=== PATIENT | female | born 1940 | race Caucasian/White ===

== ENCOUNTER → 2019-10-21 12:49 | Outpatient (CLI) | payer MEDICARE, SELFPAY ==
[2019-10-21 13:17] LABS: RBC Urine None Seen (0-5/HPF); WBC Urine None Seen (0-5/HPF)
[2019-10-21 13:42] LABS: Add Manual Diff / Slide Review NO; Basophils Absolute Auto 100 /uL (0-100); Basophils Percent Auto 1.3 % (0-2); Eosinophils Absolute Auto 200 /uL (0-450); Eosinophils Percent Auto 4.8 % (2-4); Hematocrit 42.7 % (36-46); Hemoglobin 14.6 g/dL (12.0-16.0); Lymphocytes Absolute Auto 900 /uL (1100-4500); Lymphocytes Percent Auto 19.2 % (25-40); Mean Corpuscular HGB Conc 34.1 % (30-36); Mean Corpuscular Volume 93.7 fL (80-100); Monocytes Absolute Auto 400 /uL (0-900); Monocytes Percent Auto 8.8 % (3-14); Neutrophils Absolute Auto 3200 /uL (1500-7000); Neutrophils Percent Auto 65.9 % (50-75); Platelet Count 321 X10^3/uL (150-400); Red Blood Cell Count 4.56 X10^6/uL (4.0-5.2); White Blood Cell Count 4.8 X10^3/uL (4.5-11.0)
[2019-10-21 14:03] LABS: Hemoglobin A1C% w Est Avg Glu 5.4 % (4.0-6.0)
[2019-10-21 14:04] LABS: BUN Creatinine Ratio 20.6 (6-22); Blood Urea Nitrogen 22 mg/dL (7-17); Calcium 9.5 mg/dL (8.4-10.2); Carbon Dioxide 29 mmol/L (22-32); Chloride 104 mmol/L (98-107); Estimated Glomerular Filt Rate 49.5 mL/min (>60); Glucose 93 mg/dL (80-110); HEMOLYSIS < 15 (0-50); Sodium 140 mmol/L (137-145)
[2019-10-21 15:20] LABS: Appearance Urine UA CLEAR; Bilirubin Urine UA NEGATIVE (NEGATIVE); Color Urine UA YELLOW; Glucose Urine UA NEGATIVE (Negative); Ketones Urine UA NEGATIVE (NEGATIVE); Leukocyte Esterase Urine UA NEGATIVE (NEGATIVE); Nitrite Urine UA NEGATIVE (Negative); Occult Blood Urine UA NEGATIVE (Negative); Protein Urine UA NEGATIVE (Negative); Specific Gravity Urine UA <=1.005 (1.000-1.035); Urobilinogen Urine UA 0.2 E.U./dL (0.2)
[2019-10-21 15:45] LABS: Bacteria Urine Occasional (0-1); Culture Indicated Urine Cult Not Indicated; Squamous Epithelial Cell Urine 1-5 /HPF (0-5/HPF)
== END ==
PROVIDERS: Family Provider Internal Medicine; PCP Internal Medicine; Referring Provider Orthopaedic Surgery; Visit Provider Orthopaedic Surgery
DX: Z01.818 Encounter for other preprocedural examination (principal); Z01.812 Encounter for preprocedural laboratory examination; R73.9 Hyperglycemia, unspecified; N39.0 Urinary tract infection, site not specified
CPT/HCPCS: 36415; 80048; 81001; 83036; 85025; 93005

== ENCOUNTER → 2019-11-10 13:03 | Outpatient (CLI) | payer MEDICARE, SELFPAY ==
[2019-11-11 06:39] LABS: COVID19 Sendout Not Detected (Not Detect)
== END ==
PROVIDERS: Family Provider Internal Medicine; PCP Internal Medicine; Visit Provider Physician Assistant
DX: Z01.812 Encounter for preprocedural laboratory examination (principal)
CPT/HCPCS: 87635

== ENCOUNTER 2019-11-14 10:01 | Observation (INO) | payer MEDICARE, SELFPAY ==
[2019-11-06 13:53] VITALS: BMI 36.2
[2019-11-13] VITALS (17 sets, daily range): BP systolic 116–157; BP diastolic 55–80; PULSE 80–96; RESP 11–22; TEMP 35.6–36.4; O2SAT 90–97; BMI 36.5
[2019-11-13] MEDS: CELECOXIB 200 MG CAPSULE PO (07:01)
[2019-11-13] MEDS: ACETAMINOPHEN 325 MG TABLET 975 MG PO (07:01)
[2019-11-13] MEDS: PREGABALIN 75 MG CAPSULE PO (07:02)
[2019-11-13] MEDS: VANCOMYCIN 1,000 MG/200 ML PIGGYBACK 200 MG IV (07:02)
[2019-11-13] MEDS: LACTATED RINGERS 1,000 ML 42 ML IV ×2 (07:27→08:59)
[2019-11-13] MEDS: CEFAZOLIN 2 GM/100 ML FROZ.PIGGY IV ×3 (07:40→23:52)
--- NOTE | 2019-11-13 07:42 | P.OP_ITS ---
Operative Date/Time/Diagnoses Date of procedure: 11/13/19 Time of procedure: 07:59 Pre-op diagnosis: left knee OA Post-op diagnosis: same Procedure & Clinicians Procedure: Left total knee arthroplasty Same procedure as scheduled: Yes Indications: The patient has had progressively worsening left knee pain with radiographic changes consistent with arthritis. Non-operative management has failed and the patient has requested total knee replacement. The risks, benefits and alternatives to surgery were discussed with the patient prior to proceeding. Risks discussed included, but were not limited to, failure to relieve pain, stiffness, infection, nerve damage, deep venous thrombosis, pulmonary embolism, stroke, coma, heart attack, permanent paralysis and , as well as the potential need for eventual revision of the prosthetic. Surgeon: Camila Trujillo Software Applications Designer: Rhonda Delgado Anesthesia Type: General and Spinal Operative Notes Findings: Severe left knee osteoarthritis, good stability Closure Type: primary Prosthetic devices, grafts, tissues, transplants, or devices: Trujillo [employer] Nephew Journey BCS 2 size 5 femur, size 3 tibia, +10 poly 35 x 7.5 mm patella Estimated Blood Loss (mL): 250 Blood products transfused: none Tourniquet time (min): 99 Procedure in detail: The patient was seen in the pre-operative area, where the patient identified the left knee as the operative site and this was marked with my initials. The patient received pre-operative antibiotics, and was taken to the operating room and placed on the operative table in the supine position. After satisfactory anesthesia, a multimedia journalist out was performed. The left leg was encircled with a tourniquet about the proximal thigh, and the leg was prepared from the toes to the tourniquet with ChloroPrep in the usual fashion and draped through sterile drapes. The leg was elevated and exsanguinated with Eschmark bandage and the tourniquet inflated to 300 mmHg pressure. The knee was approached through an approximately 18 cm incision centered over the patella and carried into the knee through a medial parapatellar arthrotomy. A portion of the medial and lateral meniscus was resected. Soft tissue was carefully mobilized around the patella the patella was measured with a caliper. Bone was resected from the patella and the patellar height was reconstituted with up an appropriate sized patellar component. A cover was then placed on the patella. Portion of the lateral facet of the patella was resected as it was slightly thin and crumbling. A small amount of additional medial and lateral meniscus was resected. The distal femur was cut at 5?. A [+2] cut was used. It looked like an appropriate distal femoral cut and the cut was made without difficulty. An extramedullary guide was used for the tibial cut. 10 mm was resected off the least affected side.The tibia was prepared. The rotation was assessed. The patient was placed in extension residual medial and lateral meniscus as well as any residual bone was carefully resected. [No] additional tibia was resected. Hemostasis was achieved especially posteriorly. Additional local was injected into the posterior capsule. The extension gap was assessed and additional releases for gap balancing were performed as necessary. It was checked with the gap applied marine physics professor. The femoral component was trial was placed and the notch was finished. The rotation was assessed and the appropriate size femoral guide was placed on the distal femur and finishing cuts were made. There is no evidence of notching. The anterior, posterior and chamfer cuts were then made. The posterior osteophytes and soft tissues were then removed. The posterior capsule was injected with part of a mixture of 60 ml 0.25% Marcaine mixed with 20 ml Exparel for post operative pain control. The remainder of this mixture was injected into the capsule and subcutaneous tissues during cement curing. The tibial and femoral components were then placed and the knee placed through a range of motion. Range of motion was [0-130], with good stability throughout the range. The trials were then removed, and the tibia was finished. The bone was prepared with pulsatile lavage, and dried with a sponge. Cement was applied and the final prosthetics placed. Excess cement was removed during and after cement curing. A brief Betadine soak was performed. After confirming there was no extruded cement posteriorly, the final tibial insert was placed. The knee was copiously irrigated and the tourniquet deflated. Hemostasis was obtained with the Bovie. A drain was placed and brought out superolaterally. The capsule was closed with interrupted nonabsorbable suture. The subcutaneous layer was closed with barbed sutures, and the skin with a running 3-0 V-Lock suture and Surgical glue. An ana dressing was applied and the patient was taken to recovery having tolerated the procedure well. Complications: none Post-operative Condition: stable Disposition: Acute Care Plan for aftercare: The patient will be maintained on a standard total knee replacement protocol with weight bearing as tolerated. The patient will receive aspirin and sequential compression devices for DVT prophylaxis. The patient will be discharged home when safe for the home environment.
--- NOTE | 2019-11-13 07:42 | PM.PREOP ---
Pre-operative Note COVID-19 COVID-19 status: Negative Interval Note History & Physical reviewed/Exam performed by Physician: Yes Changes to H&P: No
--- NOTE | 2019-11-13 08:00 | DI.RAD.S_ITS ---
PROCEDURE: XR KNEE LT 1TO2V INDICATIONS: post op films TECHNIQUE: 2 view(s) of the knee acquired. COMPARISON: None. FINDINGS: Bones: Patient is status post knee joint arthroplasty. Hardware components are in expected positions. Visualized bony structures are intact. Soft tissues: Overlying postoperative changes are noted. IMPRESSION: Expected postoperative appearance Dictated by: Misael Steel M.D. on 11/13/2019 at 11:52 Approved by: Misael Steel M.D. on 11/13/2019 at 11:53
[2019-11-13] MEDS: TRANEXAMIC ACID 1,000 MG VIAL 1000 MG INJ ×2 (08:10→10:10)
--- NOTE | 2019-11-13 08:30 | SUR.OPER ---
Supine on padded OR bed. Pillow under head, arms secured on padded armboards <90 degree abduction. Safety belt across torso. Non-operative leg secured with tape over blanket over lower leg. Operative leg secured in DeMayo/Roc positioner. Foam padded brace at thigh of operative leg.
[2019-11-13] MEDS: BUPIVACAINE LIPOSOME 266 MG/20 ML VIAL INJ (08:36)
[2019-11-13] MEDS: BUPIVACAINE 0.25% W/ EPI 30 ML VIAL 60 ML INJ (08:36)
[2019-11-13] MEDS: LACTATED RINGERS 1,000 ML 100 ML IV ×2 (12:15→22:12)
[2019-11-13] MEDS: OXYCODONE IR 5 MG TABLET PO ×3 (14:06→22:15)
[2019-11-13] MEDS: ACETAMINOPHEN 325 MG TABLET 650 MG PO ×2 (14:06→20:35)
[2019-11-13] MEDS: IBUPROFEN 400 MG TABLET PO ×3 (14:06→20:36)
--- NOTE | 2019-11-13 14:29 | CM.IDA ---
Addendum entered by GAUTAM Franco 11/14/19 14:54: Sunday 7.3.20: PT recommending home w/ SO to assist and HH depending on progression. Will review DCP w/patient Sunday, r/o need for HH Original Note: Initial DCP Assessment Note: Patient is a 79 yo female, resident of [place]. Patient is scheduled for her left knee surgery today w/ Dr Trujillo PCP: Mel Arguello Payer: DON/CHAPIS Reviewed chart to see that patient lives w/ S.O. Ye Nunez P# [phone] and plans to return home w/his assist upon DC. Patient is off the floor today for surgery, this EDI ARCHITECT will follow closely to address any DC needs or concerns that might arise. PT pending. GAUTAM Franco
--- NOTE | 2019-11-13 14:59 | PC.NURSE ---
Patient arrived from PACu at 1230 today to room 205. VSS. Hemovac and MELVIN dressing in place to left knee, with YUNIOR wrap in place. Physical therapy attempted to see patient this afternoon, but patient declined therapy today. They will attempt again in the morning. Patient reported moderate pain this afternoon to knee, relieved by prn medications (see MAR) as documented and now sleeping comfortably in bed. Patient declined urge to void yet, continue to monitor as patient due to void post surgery. Call light with reach.
--- NOTE | 2019-11-13 15:07 | DIET.PN ---
Addendum entered by Ileana Ruvalcaba 11/14/19 11:18: Met c pt this am to discuss importance of including protein at every meal and snack for next two weeks to support healing and collaborated c pt on ideas. Encouraged pt to participate in all PT sessions and increase physical activity to manage obesity now that she has her new knee. Original Note: Dietary Progress Note Pt sleeping when interview attempted. Will plan to visit prior to d/c Sunday to educate on adequate protein for healing and initiation of regular physical activity to manage obesity once cleared by PT.
--- NOTE | 2019-11-13 16:00 | PT-IP ANOTE ---
checked on pt for PT eval but pt refused. stated that she does not want to do any PT today. informed nurse.
--- NOTE | 2019-11-13 17:38 | PC.NURSE ---
Addendum entered by Maryan Starkey R.N. 11/13/19 22:29: Inspected HV around 1700 and it was free of kinks and compressed. no output for evening shift. Original Note: pt ambulated to the BS. 2PA-fww. UOP 225.
[2019-11-13] MEDS: ASPIRIN EC 81 MG TABLET PO (20:35)
[2019-11-13] MEDS: DOCUSATE 100 MG CAPSULE PO (20:36)
--- NOTE | 2019-11-13 22:56 | PC.NURSE ---
[place] [facility] [place]/walker. drain had no output for a few hrs then had 20cc at end of shift. hv was free of kinks and compress.
[2019-11-14] MEDS: CALCIUM CARBONATE 500 MG TAB 1000 MG PO (00:02)
--- NOTE | 2019-11-14 00:21 | PC.NURSE ---
Addendum entered by Tammy Pinedo R.N. 11/14/19 04:47: Up to BSC with walker and 1 assist; did well but needed cues for proper use of walker. States pain is 5/10 so medicated with scheduled Ibuprofen; declined offer of stronger pain medication. Original Note: Patient is alert and oriented. Breath sounds CTA with RA sat of 95%. HRR. Complaining of heartburn so medicated with Tums; denies nausea. BT present but denies flatus; hx of colitis. Voided earlier and denies any dysuria, frequency or urgency. Reportedly needing 2 assist + walker to [place] [facility] [place] due to weakness in left LE. Can move foot but unable to lift left leg off bed. Chronic numbness in left foot unchanged since prior to surgery. MELVIN dressing to left knee intact with spots dark red drainage; covered with jose l wrap. Hemovac is intact and compressed. Denies pain in knee but provided ice pack for comfort. Chronic bilateral LE edema noted. Wearing bilateral calf SCD's. Fall risk score is high and bed alarm is activated.
[2019-11-14] MEDS: IBUPROFEN 400 MG TABLET PO ×6 (00:58→20:54)
[2019-11-14 04:49] VITALS: BP 160/67; PULSE 91; RESP 16; TEMP 36.1; O2SAT 94
[2019-11-14 05:39] LABS: Hematocrit 33.7 % (36-46); Hemoglobin 11.8 g/dL (12.0-16.0)
[2019-11-14] MEDS: LEVOTHYROXINE 50 MCG TABLET PO (05:42)
[2019-11-14] MEDS: PANTOPRAZOLE 20 MG TABLET PO (05:42)
[2019-11-14] MEDS: OXYCODONE IR 5 MG TABLET PO ×3 (09:33→20:57)
[2019-11-14] MEDS: ASPIRIN EC 81 MG TABLET PO ×2 (09:33→20:54)
[2019-11-14] MEDS: DOCUSATE 100 MG CAPSULE PO ×2 (09:33→20:54)
[2019-11-14] MEDS: ACETAMINOPHEN 325 MG TABLET 650 MG PO ×3 (09:33→20:54)
[2019-11-14] MEDS: estradioL 1 MG TABLET PO (09:34)
[2019-11-14] MEDS: FISH OIL 1,000 MG CAPSULE 1000 MG PO (09:34)
[2019-11-14] MEDS: TRIAMTERENE/HCTZ 37.5/25 TABLET 1 CAP PO (09:34)
[2019-11-14 09:48] VITALS: BP 158/56; PULSE 85; RESP 18; TEMP 35.9; O2SAT 96
--- NOTE | 2019-11-14 11:10 | PT.IIE ---
Current Diagnoses Unilateral primary osteoarthritis, left knee (11/13/19) Surgery Performed Operation Date: 11/13/19 07:45 Actual Procedures p Total Knee Arthroplasty(Left) - Camila Trujillo MD Surgical History (Last Updated 11/06/19 @ 14:28 by Thelma Justin RN) History of arthroplasty of both shoulders (Acute) History of arthroplasty of right knee (Acute) History of bilateral cataract extraction (Acute) History of hysterectomy (Acute) History of lumbar fusion (Acute 08/29/16) History of total left hip arthroplasty (Acute) Hx of BSO (bilateral salpingo-oophorectomy) (Acute) Hx of dilation and curettage (Acute) Hx of repair of right rotator cuff (Acute) S/P foot surgery, right (Acute) Medical History (Last Updated 11/06/19 @ 14:28 by Thelma Justin RN) Angiomyolipoma of right kidney (Acute) Chronic cough (Acute) Collagenous colitis (Acute) Cyst of left breast (Acute 2007) Cyst of left kidney (Acute) Edema (Acute) GERD (gastroesophageal reflux disease) (Acute) Hearing loss (Acute) Hepatic cyst (Acute) Hepatic hemangioma (Acute) HTN (hypertension) (Acute) Hypothyroid (Acute) Impaired fasting glucose (Acute) Pneumonia (Acute 2006) Scoliosis (Acute) Physical Therapy Inpatient Evaluation/Re-Eval M1 PT/OT-IP Prior Functional Status Start: 11/14/19 08:25 Freq: NEEDED Status: Active Protocol: Document 11/14/19 10:41 (Rec: 11/14/19 11:10 [email or web address]) Medical Review Prior Functional Status Medical History Reviewed Yes Diet/Fluid Consistency Regular Communication Pt is an effective communicator and able to make needs known Mobility and Gait Pt uses SPC to walk with her dog. She can only rick 1 to 2 blocks of walking d/t knee pain. Pt has poor balance and fell 3 times within the past 3 weeks. She stated she doesnt need SPC for home mobility but slowly. Activities of Daily Living and IADL's Independent for ADLs without AD. She is able to cook, do laundry but her S.O Peter does heavy lifting activities. Social History Household Members significant other Living Arrangements House Number of Floors (Floors) One Floor Number of Stairs To Enter/Railing? no OSKAR Home Environment High Toilet,Walk in Shower,Tub /Shower Home Equipment Front Wheel Walker,Straight Cane,Raised Toilet Seat w/ Armrests,Grab Bars In Shower Employment Status Retired Additional Social History Comment Pt lives with her Maritza Belcher in [facility] who is very independent and active and able to assist pt as needed. Pt had R TKA 5-6 years ago, back sx 3years ago and L XI. She will participate [facility] PT starting from next week. M2 PT-IP Current Condition Start: 11/14/19 08:25 Freq: NEEDED Status: Active Protocol: Document 11/14/19 10:41 HH (Rec: 11/14/19 11:10 [email or web address]) Physical Therapy Current Condition Current Condition Evaluation Date 11/14/19 Treatment Diagnosis L TKA, difficulty in walking Onset Date 11/13/19 Weight Bearing Status Weight Bearing Status Weight Bear as Tolerated M3 PT-IP Subjective Start: 11/14/19 08:25 Freq: NEEDED Status: Active Protocol: Document 11/14/19 10:41 HH (Rec: 11/14/19 11:10 [email or web address]) Subjective Physical Therapy Visit Type Type Initial Evaluation Visit Start Time 09:30 Visit Stop Time 10:10 Total Visit Minutes 40 Notes RN stated pt got up to BSC with 1PA this morning Number of LAUNDRY TUB MAKER Visits 0 Physical Therapy Visit Comments Patient Comments My pain is at 7/10 and very sore. Patient Goals To return home once her pain is controlled. Therapy Pain Assessment Pain When Pain Assessed During Mobility Pain Present Pain Present Pain Reported Location left knee Intensity 7 Scale Used Numeric (0 - 10) Description Aching Pain Behaviors Calling Out,Facial Grimacing, Guarding Pain Management Techniques Modification of Treatment,Re- positioning,Timing of Activity with Medications M4 PT-IP Mobility and Gait Start: 11/14/19 08:25 Freq: NEEDED Status: Active Protocol: Document 11/14/19 10:41 HH (Rec: 11/14/19 11:10 [email or web address]) PT-Bed Mobility Assessment Supine to Sit Supine to Sit Contact Guard Assistance, Bedrails Scooting Scooting to Edge of Bed Contact Guard Assistance PT-Transfer Assessment Sit to and From Stand Sit to and from Stand Moderate Assistance,Use of Upper Extremities Equipment Transfer Assistive Device Gait Belt,Front Wheeled Walker Orthotic/Prosthetic Devices or Brace: No Transfers Transfer Destination Bed,Chair Transfer Technique Stand Step Pivot Transfer Ability Level of Assist Moderate Assistance,Use of Upper Extremities Comments Mobility Comments Pt was in bed upon PT arrival BP at 158/56. Pain at 7/10. Pt then was given pain meds from nursing prior to mobility. She agreed to mobilize with PT . Pt initially had difficulty lifting her LLE to pivot so this PT instructed her to use gait belt to assist. She then completed supine to long sit and used gait belt to pivot her LLE to L side with CGA. She overall took 2 mins to slowly pivot and scoot towards EOB. She then practiced seated heel slide but significant pain noted. Only reach up to ~75 degrees flexion. She then completed sit to stand x assistance stabilizing her FWW and mod A and primarily pushed off through UEs and R LE. She then proceed to amb around bed foot with step to pattern and CGA and presented with significant antalgic gait. She was able to transfer to chair slowly with proper descend with B UEs on armrests but with a stagger stance. Dr. Trujillo came in for assessment after and expect pt to stay one more night. Placed pt into reclined position with leg lift and educated her to do quad sets for knee extension. Call light placed within reach . BP at 133/72 Gait Assessment Gait Gait Assistance Required: Contact Guard Assist Distance (Feet) 8 Able to Maintain Weight Bearing Status Yes During Gait Assistive Devices Assistive Device Gait Belt,Front Wheeled Walker Orthotic/Prosthetic Devices or Brace: No Gait Deviations General Gait Pattern Antalgic,Decreased Stride Length,Decreased Feet Clearance,Step-to Gait Factors Limiting Gait Function Factors Limiting Gait Function Decreased Activity Tolerance, Decreased Strength,Limited Range of Motion,Pain,Poor Balance Comments Gait Comments see mobility comments. Stair Climbing Assessment Comments Stair Climbing Comments did not assess d/t significant pain and limited mobility PT-Balance Assessment Sitting Balance and Reactions Static Sitting Balance Ability Normal Dynamic Sitting Balance Ability Normal Standing Balance and Reactions Static Standing Balance Ability Good Dynamic Standing Balance Ability Fair Device Used FWW M5 PT-IP Objective Assessments Start: 11/14/19 08:25 Freq: NEEDED Status: Active Protocol: Document 11/14/19 10:41 (Rec: 11/14/19 11:10 [email or web address]) Orientation Orientation/Cognition Level of Alertness Alert Orientation Name,Age,Birthday,Month,Date, Year,Day of Week,Place, Situation Language Function Ability No Deficits Noted Safety Awareness Understands Safety Issues Memory Description No Deficits Noted Gross Range of Motion Upper Extremity ROM Assessment Within Functional Limits Lower Extremity ROM Assessment Left Impaired Impairments 15 - 75 L knee AROM Strength Upper Extremity Strength Assessment Within Functional Limits Lower Extremity Strength Assessment Left Impaired Hip 4-/5 Knee 3/5 Ankle 4/5 Comments Strength Comments pt has poor hip flexor strength for lifting LLE in bed. Stated she has been weak since her LTHA. Coordination Assessment Gross Coordination Gross Coordination WNL Sensation Assessment Sensation Gross Sensation WNL Muscle Tone Muscle Tone WNL Yes M6 PT-IP Treatment Start: 11/14/19 08:25 Freq: NEEDED Status: Active Protocol: Document 11/14/19 10:41 (Rec: 11/14/19 11:10 [email or web address]) Physical Therapy Treatment Exercises Exercises Ankle Pumps,Gluteal Sets,Quad Sets,Heel Slides Education Education Provided Precautions,Weight Bearing Status,Post-Op Packet,Safety M7 PT-IP Assessment and Plan Start: 11/14/19 08:25 Freq: NEEDED Status: Active Protocol: Document 11/14/19 10:41 (Rec: 11/14/19 11:10 [email or web address]) PT Summary Assessment and Plan Potential Rehabilitation Potential Good Status of Condition at Evaluation Evolving Summary Impairments Pain,ROM,Strength,Balance,Bed Mobility,Transfers,Gait, Activity Tolerance Assessment Summary This is a low complexity evaluation for this 79yo female s/p POD1 LTKA. PLOF: mostly home bound and able to amb with/ without SPC. She can only rick 1-2 blocks of walking d/t significant knee pain. Has S.O. Peter to assist at home when needed. Upon assessment, pt has significant pain this morning 11/20 and AROM = 15-75 degrees. She showed limited mobility who was able to walk around her bed and primarily WB through UEs and RLE. Pt currently needs extensive assistance for mobility so home health might be an option but expect pt to progress once her pain is under controlled and be d/c home with S.O. assistance and outpatient PT. Will cont monitor her progress. Goals Bed Mobility Goal Standby Assistance,Contact Guard Assistance Transfer Goal Standby Assistance,Contact Guard Assistance,Front Wheeled Walker Gait Goal Standby Assistance,Contact Guard Assistance,Front Wheel Walker Gait Distance 30 Days to Meet Goals 3 Frequency of Treatment Frequency Of Treatment Twice a Day Treatment Plan Physical Therapy Treatment Plan Bed Mobility Training,Transfer Training,Gait Training, Therapeutic Exercise,Balance Retraining,Post Op Education, Discharge Planning,Hot or Cold Pack,Neuromuscular Re-ed Other Recommendations and Next Treatment knee ROM ex Focus Recommendations To Nursing Amount of Assist Needed 1 Person Assist Discharge Recommendations PT Discharge Recommendations Home with Assistance,Home Health,Outpatient PT Transportation Needs at Discharge Private Vehicle
[2019-11-14 11:20] VITALS: BP 147/70; PULSE 78; RESP 15; TEMP 36.6; O2SAT 94
--- NOTE | 2019-11-14 12:58 | PM.PN.1 ---
Subjective Subjective Date Patient Seen: 11/14/19 Time Patient Seen: 10:58 Interval history: She notes that she was able to get up with physical therapy but she does have significant pain into the left knee. She has no nausea and she has not had difficulty voiding. Exam Vital Signs (past 8 hours): - 11/14/19 09:48 11/14/19 11:20 Temperature 96.7 F L 97.9 F Pulse Rate 85 78 Respiratory Rate 18 15 Blood Pressure 158/56 H 147/70 H Pulse Oximetry 96 94 Oxygen Delivery Method Room Air Oxygen Flow Rate 0 Narrative Exam Narrative: She is resting comfortably in a chair is alert and oriented, HEENT is benign, calfs are soft bilaterally, dressings intact, she has moderate pain with gentle range of the motion in her knee from 0 to about 50? Objective Labs Result Diagrams: 11/14/19 05:18 Labs: Laboratory Results - last 24 hr 11/14/19 05:18 Hgb 11.8 L Hct 33.7 L Assessment & Plan Assessment & Plan narrative: Doing reasonably well after a left total knee arthroplasty. She is having some problems with pain management postoperatively. I strongly encouraged her to continue to mobilize with physical therapy to use ice and to anticipate some pain when she gets out of bed and ambulate. She can probably be discharged to home tomorrow. We will see how she does with physical therapy.
--- NOTE | 2019-11-14 13:53 | PC.NURSE ---
Day shift: Hemovac removed as ordered, tolerated well.
--- NOTE | 2019-11-14 14:59 | PT.IPTN ---
Current Diagnoses Unilateral primary osteoarthritis, left knee (11/13/19) Surgery Performed Operation Date: 11/13/19 07:45 Actual Procedures p Total Knee Arthroplasty(Left) - Camila Trujillo MD Physical Therapy Treatment Note M2 PT-IP Current Condition Start: 11/14/19 08:25 Freq: NEEDED Status: Active Protocol: Document 11/14/19 10:41 HH (Rec: 11/14/19 11:10 HH [id number]) Physical Therapy Current Condition Current Condition Evaluation Date 11/14/19 Treatment Diagnosis L TKA, difficulty in walking Onset Date 11/13/19 Weight Bearing Status Weight Bearing Status Weight Bear as Tolerated M3 PT-IP Subjective Start: 11/14/19 08:25 Freq: NEEDED Status: Active Protocol: Document 11/14/19 14:31 KS (Rec: 11/14/19 15:54 KS [id number]) Subjective Physical Therapy Visit Type Type Treatment Note Visit Start Time 14:31 Visit Stop Time 14:59 Total Visit Minutes 28 Notes Pt agreeable to work w/ therapy. Pts SO present during treatment. Number of NURSES' REGISTRY DIRECTOR Visits 1 Physical Therapy Visit Comments Patient Comments Pt reports 5/10 pn in L knee. Patient Goals To return home once her pain is controlled. Therapy Pain Assessment Pain When Pain Assessed At Rest Pain Present Pain Present Pain Reported Location left knee Intensity 5 Scale Used Numeric (0 - 10) Description Aching Pain Management Techniques Apply Cold,Re-positioning M4 PT-IP Mobility and Gait Start: 11/14/19 08:25 Freq: NEEDED Status: Active Protocol: Document 11/14/19 14:31 KS (Rec: 11/14/19 15:54 KS [id number]) PT-Bed Mobility Assessment Supine to Sit Supine to Sit Contact Guard Assistance,Head of Bed Elevated Sit to Supine Sit to Supine Minimal Assistance,1 Person Assistance Scooting Scooting to Edge of Bed Contact Guard Assistance Scooting Up and Down in Bed Standby Assistance PT-Transfer Assessment Sit to and From Stand Sit to and from Stand Minimal Assistance,1 Person Assistance,Use of Upper Extremities Equipment Transfer Assistive Device Gait Belt,Front Wheeled Walker Orthotic/Prosthetic Devices or Brace: No Transfers Transfer Destination Bed Transfer Technique pt ambulated w/ FWW. Transfer Ability Level of Assist Minimal Assistance,1 Person Assistance,Use of Upper Extremities Comments Mobility Comments Pt was in bed upon arrival from therapy. Pt performed 1x10 ankle pumps, quad sets, and glute sets. AAROM L knee. Pt then sup<>sit and scoot EOB CGA w/ use of gait belt to self assist LLE out of bed. Pt then sit<>stand Min A w/ cues for sequencing. Pt then ambulated ~35 ft w/ FWW and CGA around room. Pt demonstrated good use of FWW. Cues for quad activation and heel toe walking. Pt returned to bed and sit<>sup Min A for LE guidance. Pt able to reposition herself in bed SBA. Pt left in bed w/ all needs in reach w/ SCDs on. Initiated caregiver trg w/ pts SO. Gait Assessment Gait Gait Assistance Required: Contact Guard Assist Distance (Feet) 35 Able to Maintain Weight Bearing Status Yes During Gait Assistive Devices Assistive Device Gait Belt,Front Wheeled Walker Orthotic/Prosthetic Devices or Brace: No Gait Deviations General Gait Pattern Antalgic,Decreased Stride Length,Decreased Feet Clearance,Step-to Gait Factors Limiting Gait Function Factors Limiting Gait Function Decreased Activity Tolerance, Decreased Strength,Limited Range of Motion,Pain,Poor Balance Comments Gait Comments see mobility comments. PT-Balance Assessment Sitting Balance and Reactions Static Sitting Balance Ability Normal Dynamic Sitting Balance Ability Normal Standing Balance and Reactions Static Standing Balance Ability Good Dynamic Standing Balance Ability Fair Device Used FWW M5 PT-IP Objective Assessments Start: 11/14/19 08:25 Freq: NEEDED Status: Active Protocol: Document 11/14/19 10:41 (Rec: 11/14/19 11:10 [email or web address]) Orientation Orientation/Cognition Level of Alertness Alert Orientation Name,Age,Birthday,Month,Date, Year,Day of Week,Place, Situation Language Function Ability No Deficits Noted Safety Awareness Understands Safety Issues Memory Description No Deficits Noted Gross Range of Motion Upper Extremity ROM Assessment Within Functional Limits Lower Extremity ROM Assessment Left Impaired Impairments 15 - 75 L knee AROM Strength Upper Extremity Strength Assessment Within Functional Limits Lower Extremity Strength Assessment Left Impaired Hip 4-/5 Knee 3/5 Ankle 4/5 Comments Strength Comments pt has poor hip flexor strength for lifting LLE in bed. Stated she has been weak since her LTHA. Coordination Assessment Gross Coordination Gross Coordination WNL Sensation Assessment Sensation Gross Sensation WNL Muscle Tone Muscle Tone WNL Yes M6 PT-IP Treatment Start: 11/14/19 08:25 Freq: NEEDED Status: Active Protocol: Document 11/14/19 14:31 KS (Rec: 11/14/19 15:54 KS [id number]) Physical Therapy Treatment Exercises Exercises Ankle Pumps,Gluteal Sets,Quad Sets,Heel Slides Education Education Provided Precautions,Weight Bearing Status,Post-Op Packet,Safety M7 PT-IP Assessment and Plan Start: 11/14/19 08:25 Freq: NEEDED Status: Active Protocol: Document 11/14/19 14:31 KS (Rec: 11/14/19 15:54 KS [id number]) PT Summary Assessment and Plan Potential Rehabilitation Potential Good Status of Condition at Evaluation Evolving Summary Impairments Pain,ROM,Strength,Balance,Bed Mobility,Transfers,Gait, Activity Tolerance Progress Towards Goals Progressing Toward Goals Assessment Summary Pt showed improvements w/ bed mobility and ambulation this afternoon. CGA for sup<>sit w/ gaitbelt to assist LLE out of bed. Min A sit<>stand w/ FWW and cues for sequencing. Pt ambulated ~35ft w/ FWW and CGA , cues for heel toe walking and quad activation. Demonstrated proper gaitbelt application and guarding to pts SO. Anticipating pt to show improved progress tomorrow and return home w/ SO and do outpatient therapy, but if not HHPT. Goals Bed Mobility Goal Standby Assistance,Contact Guard Assistance Transfer Goal Standby Assistance,Contact Guard Assistance,Front Wheeled Walker Gait Goal Standby Assistance,Contact Guard Assistance,Front Wheel Walker Gait Distance 30 Days to Meet Goals 3 Frequency of Treatment Frequency Of Treatment Twice a Day Treatment Plan Physical Therapy Treatment Plan Bed Mobility Training,Transfer Training,Gait Training, Therapeutic Exercise,Balance Retraining,Post Op Education, Discharge Planning,Hot or Cold Pack,Neuromuscular Re-ed Other Recommendations and Next Treatment knee ROM ex, further Focus ambulation Recommendations To Nursing Amount of Assist Needed 1 Person Assist Discharge Recommendations PT Discharge Recommendations Home with Assistance,Home Health,Outpatient PT Transportation Needs at Discharge Private Vehicle
[2019-11-14] MEDS: polyethylene glycoL 3350 17 GM POWD.PACK PO (15:03)
[2019-11-14 16:10] VITALS: BP 139/71; PULSE 84; RESP 16; TEMP 37; O2SAT 95
[2019-11-14 19:10] VITALS: BP 129/55; PULSE 92; RESP 15; TEMP 36.4; O2SAT 93
[2019-11-14 23:15] VITALS: BP 128/68; PULSE 95; RESP 18; TEMP 36.7; O2SAT 94
[2019-11-15] MEDS: IBUPROFEN 400 MG TABLET PO ×3 (01:11→08:20)
[2019-11-15] MEDS: PANTOPRAZOLE 20 MG TABLET PO (04:56)
[2019-11-15] MEDS: LEVOTHYROXINE 50 MCG TABLET PO (04:56)
[2019-11-15 05:21] VITALS: BP 142/60; PULSE 85; RESP 18; TEMP 36.6; O2SAT 95
[2019-11-15 07:30] VITALS: BP 127/72; PULSE 87; RESP 18; TEMP 36.6; O2SAT 95
[2019-11-15 08:01] VITALS: PULSE 94; RESP 18; O2SAT 96
[2019-11-15] MEDS: DOCUSATE 100 MG CAPSULE PO (08:19)
[2019-11-15] MEDS: OXYCODONE IR 5 MG TABLET PO (08:20)
[2019-11-15] MEDS: ASPIRIN EC 81 MG TABLET PO (08:20)
[2019-11-15] MEDS: ACETAMINOPHEN 325 MG TABLET 650 MG PO (08:20)
[2019-11-15] MEDS: FISH OIL 1,000 MG CAPSULE 1000 MG PO (09:57)
[2019-11-15] MEDS: estradioL 1 MG TABLET PO (09:57)
[2019-11-15] MEDS: TRIAMTERENE/HCTZ 37.5/25 TABLET 1 CAP PO (09:58)
--- NOTE | 2019-11-15 10:00 | PM.DS.1 ---
History of Present Illness History of Present Illness Date Patient Seen: 11/15/19 Time Patient Seen: 10:00 Chief complaint: Left Total Knee Arthroplasty *OPB* Narrative: Patient admitted for elective L UKA. Discharge Providers Provider Discharge Date: 11/15/19 Primary care physician: Mel Arguello MD Consults: 11/12/19 11:55 Consult to Anesthesiology Routine Comment: Consulting Provider: Anesthesiologist Reason for consultation: Regional block for post operative pain control 11/13/19 11:50 Consult to Discharge Planning Routine Comment: Consult to Physical Therapy Evaluate & Treat Comment: Physician Instructions: postop TKA protocol Consult to Respiratory Therapy Evaluate & Treat Comment: Physician Instructions: Evaluate and treat 11/13/19 12:30 Consult to Dietitian, Adult Routine Comment: Reason For Exam: obesity, mini nutrition score protocol Discharge provider: Arun Menjivar MD Summary Hospital Course Discharge Diagnosis: s/p L UKA Hospital Course: Patient admitted for elective L UKA. PAtient is now POD #2. Doing well. Plan for DC home today. Status at Discharge Cognitive/behavioral status at discharge: oriented Functional status at discharge: uses cane/walker Overall status at discharge: patient is progressing back to baseline Time Spent with Patient Time spent: Less than 30 minutes Exam Vital Signs (past 8 hours): - 11/15/19 05:21 11/15/19 07:30 11/15/19 08:01 Temperature 97.8 F 97.9 F Pulse Rate 85 87 94 H Respiratory Rate 18 18 18 Blood Pressure 142/60 H 127/72 Pulse Oximetry 95 95 96 Oxygen Delivery Method Room Air Oxygen Flow Rate 0 Narrative Exam Narrative: Left knee dressing with minimal strike-through. Holding suction. NV intact in LLE Objective Labs Result Diagrams: 11/14/19 05:18 Discharge Plan Discharge Plan Patient Disposition: Home Discharge comment: Discharged to home when able to ambulate and safe with therapy. Discharge Med Rec/Prescriptions Prescriptions: New acetaminophen 325 mg Tablet 650 mg PO TID Qty: 60 RF: 0 polyethylene glycol 3350 17 gram Powder In Packet 17 gm PO DAILY PRN (Reason: Constipation) Qty: 30 RF: 0 aspirin 81 mg Tablet,Delayed Release (Dr/Ec) 81 mg PO BID Qty: 60 RF: 0 ibuprofen 400 mg Tablet 400 mg PO Q4HR Qty: 60 RF: 0 oxycodone 5 mg capsule 5 mg PO Q4H PRN (Reason: pain) Qty: 30 RF: 0 Continued levothyroxine 50 MCG tablet 0.05 mg PO QAM Qty: 0 RF: 0 omeprazole 20 MG capsule,delayed release(DR/EC) 20 mg PO QDAY Qty: 0 RF: 0 celecoxib [Celebrex] 200 MG capsule 200 mg PO AMCC Qty: 0 RF: 0 estradiol 1 MG tablet 1 mg PO QDAY Qty: 0 RF: 0 omega 2-ijs-jxr-fish oil [Fish Oil] 1,000 MG capsule 1,000 mg PO QDAY Qty: 0 RF: 0 triamterene-hydrochlorothiazid 75 MG/50 MG tablet 1 tab PO QDAY Qty: 0 RF: 0 naproxen 500 mg Tablet 500 mg PO BEDTIME PRN (Reason: Pain) RF: 0 Follow up/Referrals: Mel Arguello MD [Primary Care Provider] - Discharge Orders: Discharge (Order); Ordered 11/15/19 Ordered By: Arun Menjivar Provider Discharge Instructions Diet: Diet as Tolerated Activity: Walk multiple times a day at least 5. Cold/Heat Therapy: Ice knee multiple times a day. Skin/Wound/Dressing Care Report to your healthcare provider any signs of infection, such as:: chills, fever, night sweats, increased pain, unusual drainage and unusual redness Dressing: Leave dressing on. Okay to shower. Visit Report/Discharge Packet Instructions: How to Choose and Use a Walker, DI for Knee Replacement, DI for Constipation, How to Prevent Falls Discharge Data Primary Care Provider: Mel Arguello Attending Provider: Camila Trujillo
--- NOTE | 2019-11-15 11:28 | PT.IPTN ---
Current Diagnoses Unilateral primary osteoarthritis, left knee (11/13/19) Surgery Performed Operation Date: 11/13/19 07:45 Actual Procedures p Total Knee Arthroplasty(Left) - Camila Trujillo MD Physical Therapy Treatment Note M2 PT-IP Current Condition Start: 11/14/19 08:25 Freq: NEEDED Status: Active Protocol: Document 11/14/19 10:41 HH (Rec: 11/14/19 11:10 HH [id number]) Physical Therapy Current Condition Current Condition Evaluation Date 11/14/19 Treatment Diagnosis L TKA, difficulty in walking Onset Date 11/13/19 Weight Bearing Status Weight Bearing Status Weight Bear as Tolerated M3 PT-IP Subjective Start: 11/14/19 08:25 Freq: NEEDED Status: Active Protocol: Document 11/15/19 10:12 KS (Rec: 11/15/19 12:33 KS [id number]) Subjective Physical Therapy Visit Type Type Treatment Note Visit Start Time 10:12 Visit Stop Time 11:28 Total Visit Minutes 34 Notes Split treatment 10:12-10:38, 11:20-11:28 Number of MANAGER SUPPLY CHAIN Visits 2 Physical Therapy Visit Comments Patient Comments Pts present in second part of treatment for caregiver training. Patient Goals To return home once her pain is controlled. Therapy Pain Assessment Pain When Pain Assessed During Mobility Pain Present Pain Present Pain Reported Location left knee Intensity 4 Scale Used Numeric (0 - 10) Description Aching Pain Management Techniques Apply Cold,Re-positioning, Timing of Activity with Medications M4 PT-IP Mobility and Gait Start: 11/14/19 08:25 Freq: NEEDED Status: Active Protocol: Document 11/15/19 10:12 KS (Rec: 11/15/19 12:33 KS [id number]) PT-Bed Mobility Assessment Supine to Sit Supine to Sit Standby Assistance,Head of Bed Elevated Sit to Supine Sit to Supine Contact Guard Assistance Scooting Scooting to Edge of Bed Standby Assistance Scooting Up and Down in Bed Standby Assistance PT-Transfer Assessment Sit to and From Stand Sit to and from Stand Contact Guard Assistance,1 Person Assistance,Use of Upper Extremities Equipment Transfer Assistive Device Gait Belt,Front Wheeled Walker ,4 Wheeled Walker Orthotic/Prosthetic Devices or Brace: No Transfers Transfer Destination Bed Transfer Technique pt ambulated w/ FWW. Transfer Ability Level of Assist Contact Guard Assistance,1 Person Assistance,Use of Upper Extremities Comments Mobility Comments Pt in bed upon arrival from therapy. Pt sup<>sit SBA w/ HOB elevated. Pt stated at home bed inclines. Pt then scooted EOB SBA w/ use of gaitbelt to assist LLE. Pt CGA for sit<>stand w/ 4WW cues for brake application. Pt then ambulated ~70 ft w/ 4WW, but at this time is safer to use FWW. Pt returned to room to use FWW and then ambulated ~ 230 ft CGA w/ cues for quad activation and equal step length. Pt stand<>sit<>sup in bed SBA. Pts arrived to complete caregiver training . Pt sup<>sit SBA, pts demonstrated proper application of gait belt and CGA for sit<>stand and ambulation. Pt then completed 1x platform step w/ providing CGA, cues for sequencing. Pt and state they both feel safe to return home and resume OPPT. Pt left in room w/ all needs in reach. Gait Assessment Gait Gait Assistance Required: Contact Guard Assist Distance (Feet) 300 Able to Maintain Weight Bearing Status Yes During Gait Assistive Devices Assistive Device Gait Belt,Front Wheeled Walker ,4 Wheeled Walker Orthotic/Prosthetic Devices or Brace: No Gait Deviations General Gait Pattern Antalgic,Decreased Stride Length,Decreased Feet Clearance,Step-to Gait Factors Limiting Gait Function Factors Limiting Gait Function Decreased Activity Tolerance, Decreased Strength,Limited Range of Motion,Pain,Poor Balance Comments Gait Comments see mobility comments. Stair Climbing Assessment Evaluation Level of Assist On Stairs Contact Guard Assistance,1 Person Assistance Devices Stair Climbing Assistive Devices Front Wheel Walker Technique/Endurance Stair Climbing Direction Ascend and Descend Stair Climbing Technique Step to Step Number of Steps Climbed 1 Stair Climbing Set # Repetitions (reps) 1 Comments Stair Climbing Comments Pt stated no OSKAR, but one platform step to enter through garage. Pt performed 1 step w / FWW and CGA and cues for sequencing provided by . PT-Balance Assessment Sitting Balance and Reactions Static Sitting Balance Ability Normal Dynamic Sitting Balance Ability Normal Standing Balance and Reactions Static Standing Balance Ability Good Dynamic Standing Balance Ability Fair Device Used FWW M5 PT-IP Objective Assessments Start: 11/14/19 08:25 Freq: NEEDED Status: Active Protocol: Document 11/14/19 10:41 (Rec: 11/14/19 11:10 [id number]) Orientation Orientation/Cognition Level of Alertness Alert Orientation Name,Age,Birthday,Month,Date, Year,Day of Week,Place, Situation Language Function Ability No Deficits Noted Safety Awareness Understands Safety Issues Memory Description No Deficits Noted Gross Range of Motion Upper Extremity ROM Assessment Within Functional Limits Lower Extremity ROM Assessment Left Impaired Impairments 15 - 75 L knee AROM Strength Upper Extremity Strength Assessment Within Functional Limits Lower Extremity Strength Assessment Left Impaired Hip 4-/5 Knee 3/5 Ankle 4/5 Comments Strength Comments pt has poor hip flexor strength for lifting LLE in bed. Stated she has been weak since her LTHA. Coordination Assessment Gross Coordination Gross Coordination WNL Sensation Assessment Sensation Gross Sensation WNL Muscle Tone Muscle Tone WNL Yes M6 PT-IP Treatment Start: 11/14/19 08:25 Freq: NEEDED Status: Active Protocol: Document 11/15/19 10:12 KS (Rec: 11/15/19 12:33 KS [id number]) Physical Therapy Treatment Education Education Provided Precautions,Weight Bearing Status,Post-Op Packet,Safety M7 PT-IP Assessment and Plan Start: 11/14/19 08:25 Freq: NEEDED Status: Active Protocol: Document 11/15/19 10:12 KS (Rec: 11/15/19 12:33 KS [id number]) PT Summary Assessment and Plan Potential Rehabilitation Potential Good Status of Condition at Evaluation Evolving Summary Impairments Pain,ROM,Strength,Balance,Bed Mobility,Transfers,Gait, Activity Tolerance Progress Towards Goals Progressing Toward Goals Assessment Summary Pt SBA to CGA for all bed mobility, transfers, and ambulation today. Pt ambulated ~300ft (70 ft 4WW, 230 ft FWW ) CGA. Pt safer to ambulate w/ FWW at this time d/t balance deficits. Conducted caregiver training w/ pts who was able to provide safe assist w/ gait belt, transfers , ambulation, and platform step. Pt and state they feel safe to return home. Pt will benefit from OPPT to improve balance, gait, ROM, and strength. Goals Bed Mobility Goal Standby Assistance,Contact Guard Assistance Transfer Goal Standby Assistance,Contact Guard Assistance,Front Wheeled Walker Gait Goal Standby Assistance,Contact Guard Assistance,Front Wheel Walker Gait Distance 30 Days to Meet Goals 3 Frequency of Treatment Frequency Of Treatment Twice a Day Treatment Plan Physical Therapy Treatment Plan Bed Mobility Training,Transfer Training,Gait Training, Therapeutic Exercise,Balance Retraining,Post Op Education, Discharge Planning,Hot or Cold Pack,Neuromuscular Re-ed Recommendations To Nursing Amount of Assist Needed 1 Person Assist Discharge Recommendations PT Discharge Recommendations Home with Assistance,Home Health,Outpatient PT Transportation Needs at Discharge Private Vehicle
--- NOTE | 2019-11-15 12:54 | CM.DPNOTE ---
DC Note DC order in place for home and patient eager to return home. No Barriers identified to safe return home, no HH indicated at this time. Patient will f/u w/ outpt PT P: DC home w/ SO to assist, outpt PT, via private auto JW
--- NOTE | 2019-11-15 14:10 | PC.NURSE ---
Discharge: Feels ready to d/c home. Seen by PT and she has passed, daycare director instructions were given to spouse. Seen by md and received there instructions. She is taking diet w/out problems and voiding w/out diff. Po pain meds effective. Given rx. Reviewed d/c packet. Understands her total knee precautions. Pt d/c home via auto w/spouse. Voiced no concerns at time of d/c.
== END 2019-11-15 11:40 | disposition home or self-care (01) ==
LOC: OR 11-17 09:13 → AC 11-17 09:21
PROVIDERS: Admitting Provider Orthopaedic Surgery; PCP Internal Medicine; Referring Provider Internal Medicine; Visit Provider Orthopaedic Surgery
PROC: 0SRD0JZ Replacement of Left Knee Joint with Synthetic Substitute, Open Approach (ICD-10-PCS; CPT 27447; principal; 2019-11-13 07:45)
DX: M17.12 Unilateral primary osteoarthritis, left knee (principal); I10 Essential (primary) hypertension; E66.9 Obesity, unspecified; Z68.36 Body mass index [BMI] 36.0-36.9, adult
CPT/HCPCS: 27447; 36415; 73560; 85014; 85018; 97110; 97116; 97161; 97530; C1776; G0378; A9270; C9290; J0690; J1170; J2250; J2704; J3010

== ENCOUNTER → 2020-05-21 14:03 | Outpatient (CLI) | payer MEDICARE, SELFPAY ==
[2019-11-13 11:54] VITALS: BMI 36.5
--- NOTE | 2020-05-21 | DI.US.S_ITS ---
PROCEDURE: US PERIPH VENOUS LOW EXTREM LT INDICATIONS: Acute embolism and thrombosis TECHNIQUE: Real-time imaging, as well as color and pulse Doppler interrogation, were performed of the lower extremity deep veins from the inguinal ligament to the popliteal fossa. COMPARISON: None. FINDINGS: The common femoral, femoral and popliteal veins are normally compressible, and free of intraluminal thrombus. Color and pulse Doppler demonstrate normal phasic intraluminal flow. There is normal augmentation response to distal compression maneuver. IMPRESSION: No evidence of deep venous thrombosis. Dictated by: Misael Steel M.D. on 05/21/2020 at 15:16 Approved by: Misael Steel M.D. on 05/21/2020 at 15:16
== END ==
PROVIDERS: PCP Internal Medicine; Referring Provider Orthopaedic Surgery; Visit Provider Orthopaedic Surgery
DX: I82.402 Acute embolism and thrombosis of unspecified deep veins of left lower extremity (principal)
CPT/HCPCS: 93971

== ENCOUNTER 2020-09-07 09:25 | Inpatient (IN) | payer MEDICARE, SELFPAY ==
[2019-11-13 11:54] VITALS: BMI 36.5
[2020-09-06 08:36] VITALS: BMI 36.7
[2020-09-07] VITALS (24 sets, daily range): BP systolic 94–141; BP diastolic 46–81; PULSE 65–79; RESP 12–18; TEMP 35.9–37.2; O2SAT 93–99; BMI 36.7
[2020-09-07 10:03] LABS: COVID19 -Nasal RAPID Negative (Negative)
[2020-09-07] MEDS: CELECOXIB 200 MG CAPSULE 400 MG PO (10:25)
[2020-09-07] MEDS: GABAPENTIN 300 MG CAPSULE PO (10:26)
[2020-09-07] MEDS: ACETAMINOPHEN 325 MG TABLET 975 MG PO (10:26)
[2020-09-07] MEDS: LACTATED RINGERS 1,000 ML 42 ML IV ×4 (10:27→15:40)
--- NOTE | 2020-09-07 11:21 | PM.PREOP ---
Pre-operative Note COVID-19 COVID-19 status: Negative Interval Note History & Physical reviewed/Exam performed by Physician: Yes Changes to H&P: No
--- NOTE | 2020-09-07 11:21 | PM.OP.1 ---
Operative Date/Time/Diagnoses Date of procedure: 09/07/20 Time of procedure: 11:58 Pre-op diagnosis: infected left total knee Post-op diagnosis: same Procedure & Clinicians Procedure: Revision left total knee with removal of infected left total knee pre prepping and draping and insertion left knee antibiotic spacer Temporary knee. Same procedure as scheduled: Yes Indications: This is an unfortunate 80-year-old female who had a left total knee arthroplasty was doing reasonably well but then became markedly inflamed recently and it was aspirated. It is growing a Staph lugdunensis. Surgeon: Camila Trujillo [employer] Counselor: Yariel Guy Anesthesia Type: General and Spinal Operative Notes Findings: Obvious gross infection with infection tracking down to the tibia and some softening of the tibia. Moderate medial-sided abscess cavity. Components removed without significant bone loss. Closure Type: primary Specimen(s): other (cultures) Prosthetic devices, grafts, tissues, transplants, or devices: Antibiotic spacer vancomycin powder, antibiotic coated polyethylene 13 mm size 3 legion, size 5 antibiotic coated legion femur Applied: drain(s) Estimated Blood Loss (mL): 50 Blood products transfused: none Tourniquet time (min): 116 Procedure in detail: The patient was seen in the pre-operative area, where the patient identified the left knee as the operative site and this was marked with my initials. The patient was taken to the operating room and placed on the operative table in the supine position. After satisfactory anesthesia, a multimedia manager out was performed. antibiotics were held pending cultures. The left leg was encircled with a tourniquet about the proximal thigh, and the leg was prepared from the toes to the tourniquet with ChloroPrep in the usual fashion and draped through sterile drapes. The leg was elevated and exsanguinated with Eschmark bandage and the tourniquet inflated to [250] mmHg pressure. The knee was approached through the previous surgical incision an approximately 24 cm incision centered over the patella and carried into the knee through a medial parapatellar arthrotomy. there was obvious gross infection with a large abscess cavity along the medial aspect of the knee. Some necrotic tissue and gross. Material was meticulously debrided I also debrided any tissue which appeared to be grossly contaminated in the subcutaneous tissue or slightly necrotic. Soft tissue was carefully mobilized around the patella the patella was Carefully removed with an oscillating saw. I left the residual cement mantle and some of the pegs intact for further protection during surgery. An extensive synovectomy was performed removing all of the inflamed synovium and grossly thickened tissue both from the medial compartment as well as the lateral gutter and round the patellar tendon and proximal tibia. A sleeve was developed along the medial aspect of the tibia for further exposure. A combination of an oscillating saw with a teepee S as well as multiple osteotomes were used to meticulously worked around the femur which was carefully loosened. There was obvious infection and some erosion along the bone cement interface. The femur was very carefully mobilized and ultimately removed without significant difficulty. There was minimal bone loss in the notch region and really no significant bone loss from the posterior condyles or distal femur. The femur was tedious slightly removed in order to minimize bone loss. Attention was then directed to the tibia. Along the proximal tibia particularly along the proximal medial tibia it was obvious that there was some bony erosion along the proximal medial tibia especially anteriorly. There was some obvious gross soft the tibia. I did send cultures of the synovium cultures from underneath the femur and a culture from the softened bone along the anterior tibia. Retractors were carefully placed around the tibia and then a combination of osteotomes as well as an oscillating saw was used to carefully free the tibia from the cement mantle. Really no substantial bone loss occurred from the tibia. Tibia was removed without difficulty. I then meticulously removed all residual cement in the tibia including the carefully scrubing the canal an using reverse curette to remove any membrane. The knee was then meticulously irrigated with about 6 L of sterile irrigation. I also recheck the patella removed all the cement from the patella and also a drill and a small curette to remove the residual pegs and the cement in the peg holes. Once all of the potentially infectious material had been removed including doing a synovectomy of the posterior capsule we protected the knee broke down the set up and re-prepped and draped to have clean setup. I let the tourniquet down and under 2 hours at about 116 minutes. Tourniquet was down for more than 30 minutes. The knee was then prepped and draped in a standard sterile fashion. The tibia was sized at a size 3. The femur was sized at a size 5 that his trial reduction with a 13 mm size 3 poly and a size [address] acceptable positioning of the components and reasonable Range of motion. the bone was carefully recline with pulse lavage tourniquet was inflated again for 20 minutes and vancomycin powder was placed in both the femoral and tibial canal and then cemented spacer was made using antibiotic cement with tobramycin gentamicin and vancomycin. Cement was allowed to harden. Patient is placed range of motion range of motion was 0 to 120?. Tourniquet was deflated. Drain was placed the wound was closed with interrupted PDS. Subcutaneous tissues worse closed with barbed stitches. Hemostasis was obtained with the [Aquamantys system]. A drain was placed and brought out superolaterally. The capsule was closed with interrupted nonabsorbable suture. The subcutaneous layer was closed with barbed sutures, and the skin with a running 3-0 V-Lock suture and skin jose manuel. An ana dressing was applied and the patient was taken to recovery having tolerated the procedure well. Complications: none Post-operative Condition: stable Disposition: Acute Care Plan for aftercare: place PICC line. IV cefazolin 2 g IV q.8 hours while hospitalized. Ceftriaxone 2 g IV q.d. at discharge. Partial weight-bearing on the left lower extremity in knee immobilizer. Knee immobilizer as needed for comfort. Okay to do gentle range of motion exercises nonweightbearing.
[2020-09-07] MEDS: BUPIVACAINE 0.25% W/ EPI (PF) 10 ML VIAL 20 ML INJ (12:42)
[2020-09-07] MEDS: BUPIVACAINE LIPOSOME 266 MG/20 ML VIAL INJ (12:43)
[2020-09-07] MEDS: TRANEXAMIC ACID 1,000 MG VIAL 2000 MG INJ ×2 (12:44→15:14)
[2020-09-07] MEDS: CEFAZOLIN 2 GM/100 ML FROZ.PIGGY IV ×2 (12:45→20:37)
[2020-09-07] MEDS: TOBRAMYCIN 1.2 GM VIAL INTRA-ARTI (12:49)
[2020-09-07] MEDS: VANCOMYCIN 1,000 MG VIAL 1000 MG TOP ×2 (12:50→14:56)
--- NOTE | 2020-09-07 14:00 | DI.RAD.S_ITS ---
PROCEDURE: XR KNEE LT 1TO2V INDICATIONS: LEFT TOTAL KNEE TECHNIQUE: 3 views of the knee were acquired. COMPARISON: [facility], , XR KNEE LT 1TO2V, 11/13/2019, 10:47. FINDINGS: Bones: No acute fracture. Postsurgical changes related to knee arthroplasty, with revision/removal of the tibial and patellar component in expected alignment. Hardware appears intact. Soft tissues: Expected overlying postsurgical changes and skin jose manuel IMPRESSION: Expected postoperative alignment. Dictated by: Misael Steel M.D. on 09/08/2020 at 10:56 Approved by: Misael Steel M.D. on 09/08/2020 at 10:59
[2020-09-07 16:47] LABS: Hematocrit 28.8 % (36-46); Hemoglobin 9.8 g/dL (12.0-16.0)
[2020-09-07 17:09] LABS: BUN Creatinine Ratio 21.5 (6-22); Blood Urea Nitrogen 23 mg/dL (7-17); Calcium 8.2 mg/dL (8.4-10.2); Carbon Dioxide 27 mmol/L (22-32); Chloride 104 mmol/L (98-107); Estimated Glomerular Filt Rate 49.3 mL/min (>60); Glucose 128 mg/dL (80-110); HEMOLYSIS < 15 (0-50); Potassium 3.7 mmol/L (3.4-5.1); Sodium 135 mmol/L (137-145)
--- NOTE | 2020-09-07 17:14 | SUR.PHASEI ---
PACU: PATIENT HAD LOW UOP (160CC'S PER REPORT) DURING CASE, HAD 1L EBL PER REPORT AND 3000 IVF IN PER REPORT. REQUESTED LABS FROM SURGEON. PATIENT HAS UNDERLYING RENAL DYSFUNCTION. VSS. LABS HAVE RESULTED, REPORTED LABS TO DR. GEORGE. NO NEW ORDERS. FEET ARE PUFFY L>R, DR. GEORGE HAS ASSESSED, NOT MUCH CHANGED FROM PRE-OP. PATIENT AROUSABLE TO VOICE, CMS INTACT, NO N/V. DRANK APPLE JUICE. DENIES PAIN. REPORT GIVEN TO Susan OLIVARES RN. INCLUDING THAT HV DUE TO BE UNCLAMPED AT 1745 PER REPORT. ALL QUESTIONS ANSWERED TO SATISFACTION. PATIENT BROUGHT UP TO RM IN STABLE CONDITION ON 2L/NC AT 1730
[2020-09-07] MEDS: OXYCODONE IR 5 MG TABLET PO ×2 (17:41→20:36)
[2020-09-07] MEDS: IBUPROFEN 400 MG TABLET PO ×2 (17:44→20:36)
[2020-09-07] MEDS: LACTATED RINGERS 1,000 ML 100 ML IV (17:47)
[2020-09-07] MEDS: estradioL 1 MG TABLET PO (18:37)
--- NOTE | 2020-09-07 18:45 | PC.NURSE ---
Addendum entered by Ashley Huynh R.N. 09/07/20 21:25: Pt resting @intervals Med x 2 this evening for discomfort, w/fair relief. Splint remains in place. Hemavac intact Castro cath patent preston urine. Call light w/in reach, bed alarm on for pt safety. Continue w/POC Original Note: Pt arrived from PACU @ 1730 Pt drowsy, but awakens easily. Left knee w/ MELVIN dsg along w/ hemavac that are CDI Pt states pain 7/10, med as per orders w/ minimal relief. IV Right wrist infusing LR @ 100cc/hr vi pump w/o incidence. Pt resting quietly @ this time. Call light w/in reach, bed alarm on for pt safety.
[2020-09-07] MEDS: ACETAMINOPHEN 325 MG TABLET 650 MG PO (20:35)
[2020-09-07] MEDS: ASPIRIN EC 81 MG TABLET PO (20:36)
[2020-09-07] MEDS: DOCUSATE 100 MG CAPSULE PO (20:36)
[2020-09-08 00:43] VITALS: BP 126/51; PULSE 90; RESP 16; TEMP 36.4; O2SAT 96
[2020-09-08] MEDS: IBUPROFEN 400 MG TABLET PO ×6 (00:45→20:40)
[2020-09-08] MEDS: OXYCODONE IR 5 MG TABLET PO ×6 (00:45→20:40)
[2020-09-08] MEDS: LACTATED RINGERS 1,000 ML 100 ML IV (03:31)
[2020-09-08 03:46] VITALS: BP 114/57; PULSE 63; RESP 16; TEMP 36.1; O2SAT 96
[2020-09-08] MEDS: LEVOTHYROXINE 25 MCG TABLET 50 MCG PO (05:41)
[2020-09-08] MEDS: PANTOPRAZOLE 20 MG TABLET PO (05:41)
[2020-09-08] MEDS: CEFAZOLIN 2 GM/100 ML FROZ.PIGGY IV ×3 (05:41→20:41)
[2020-09-08 06:45] LABS: Hematocrit 24.5 % (36-46); Hemoglobin 8.3 g/dL (12.0-16.0)
--- NOTE | 2020-09-08 07:35 | PM.PNPO.1 ---
Subjective Subjective Date Patient Seen: 09/08/20 Time Patient Seen: 07:36 Interval history: Pain mild. Denies fever or chills. No nausea or vomiting. Exam Vital Signs (past 8 hours): - 09/08/20 00:43 09/08/20 03:46 Temperature 97.6 F 96.9 F L Pulse Rate 90 63 Respiratory Rate 16 16 Blood Pressure 126/51 L 114/57 L Pulse Oximetry 96 96 Oxygen Delivery Method Room Air Oxygen Flow Rate 0 Narrative Exam Narrative: 80-year-old female resting comfortably in bed in no apparent distress. Dressing is Clean, dry, intact.. Knee immobilizer on. Motor functions intact distal left lower extremity. Sensation grossly intact to light touch. Both legs are warm and dry. Objective Labs Result Diagrams: 09/08/20 06:25 09/07/20 16:39 Labs: Laboratory Results - last 24 hr 09/07/20 09/07/20 09/07/20 09:40 16:39 16:39 Hgb 9.8 L Hct 28.8 L Sodium 135 L Potassium 3.7 Chloride 104 Carbon Dioxide 27 BUN 23 H Creatinine 1.07 H Estimated GFR 49.3 L BUN/Creatinine Ratio 21.5 Glucose 128 H Calcium 8.2 L SARS-CoV-2 (PCR) Negative 09/08/20 06:25 Hgb 8.3 L Hct 24.5 L Sodium Potassium Chloride Carbon Dioxide BUN Creatinine Estimated GFR BUN/Creatinine Ratio Glucose Calcium SARS-CoV-2 (PCR) [facility] Medical History Angiomyolipoma of right kidney Chronic cough Collagenous colitis Cyst of left breast (2006) Cyst of left kidney Edema GERD (gastroesophageal reflux disease) Hearing loss Hepatic cyst Hepatic hemangioma HTN (hypertension) Hypothyroid Impaired fasting glucose Pneumonia (2006) Scoliosis Surgical History History of arthroplasty of both shoulders History of arthroplasty of left knee (11/13/19) History of arthroplasty of right knee History of bilateral cataract extraction History of hysterectomy History of lumbar fusion (08/29/16) History of total left hip arthroplasty Hx of BSO (bilateral salpingo-oophorectomy) Hx of dilation and curettage Hx of repair of right rotator cuff S/P foot surgery, right Social History household members: significant other Smoking Status: Never smoker alcohol intake: current Assessment & Plan Post-op Postoperative Procedures: Procedures Operation Date: 09/07/20 11:30 Actual Procedures Side Surgeon p Total Knee Arthroplasty Revision w/Placement of Antibiotic Spacer Left Camila Trujillo MD . Patient status post revision left total knee with removal of infected left total knee pre prepping and draping and insertion of left knee antibiotic spacer. Temporary knee. Patient to have PICC line placement. IV cefazolin 2 g IV Q 8 hours while hospitalized. Ceftriaxone 2 g IV q.d. discharge. Partial weight-bearing on left lower extremity. Patient to remain in the immobilizer. Okay to remove knee immobilizer for gentle range of motion exercises while nonweightbearing. Patient will mobilize with physical therapy today possible discharge home 1-2 days. Quality VTE Deep Vein Thrombosis/Pulmonary Embolism Present on Admission: No
[2020-09-08] MEDS: TRIAMTERENE/HCTZ 37.5/25 CAPSULE 1 CAP PO (08:21)
[2020-09-08] MEDS: ACETAMINOPHEN 325 MG TABLET 650 MG PO ×3 (08:21→20:41)
[2020-09-08] MEDS: DOCUSATE 100 MG CAPSULE PO ×2 (08:21→20:40)
[2020-09-08] MEDS: ASPIRIN EC 81 MG TABLET PO ×2 (08:21→20:41)
[2020-09-08] MEDS: estradioL 1 MG TABLET PO (08:21)
[2020-09-08] MEDS: FISH OIL 1,000 MG CAPSULE 1000 MG PO (08:21)
--- NOTE | 2020-09-08 10:35 | PT.IIE ---
Current Diagnoses Infection and inflammatory reaction due to other internal joint prosthesis, initial encounter (09/07/20) Presence of left artificial hip joint (09/07/20) Surgery Performed Operation Date: 09/07/20 11:30 Actual Procedures p Total Knee Arthroplasty Revision w/Placement of Antibiotic Spacer(Left) - Camila Trujillo MD Surgical History (Last Reviewed 09/08/20 @ 07:36 by Yariel Guy PA-C) History of arthroplasty of both shoulders History of arthroplasty of left knee (11/13/19) History of arthroplasty of right knee History of bilateral cataract extraction History of hysterectomy History of lumbar fusion (08/29/16) History of total left hip arthroplasty Hx of BSO (bilateral salpingo-oophorectomy) Hx of dilation and curettage Hx of repair of right rotator cuff S/P foot surgery, right Medical History (Last Reviewed 09/08/20 @ 07:36 by Yariel Guy PA-C) Angiomyolipoma of right kidney Chronic cough Collagenous colitis Cyst of left breast (2006) Cyst of left kidney Edema GERD (gastroesophageal reflux disease) Hearing loss Hepatic cyst Hepatic hemangioma HTN (hypertension) Hypothyroid Impaired fasting glucose Pneumonia (2006) Scoliosis Physical Therapy Inpatient Evaluation/Re-Eval M1 PT/OT-IP Prior Functional Status Start: 09/08/20 12:21 Freq: NEEDED Status: Active Protocol: Document 09/08/20 10:35 AB (Rec: 09/08/20 12:35 AB [id number]) Medical Review Prior Functional Status Medical History Reviewed Yes Communication able to make needs known Mobility and Gait pt stated that she is independent with all mobilities and ambulation without AD but occasionally uses a SPC for balance Social History Household Members significant other Number of Floors (Floors) One Floor Number of Stairs To Enter/Railing? no steps to enter Home Environment High Toilet,Walk in Shower Home Equipment Front Wheel Walker,Four Wheel Walker,Straight Cane,Grab Bars Near Toilet,Grab Bars In Shower Additional Social History Comment has an adjustable bed without rails M2 PT-IP Current Condition Start: 09/08/20 12:21 Freq: NEEDED Status: Active Protocol: Document 09/08/20 10:35 AB (Rec: 09/08/20 12:35 AB [email or web address]) Physical Therapy Current Condition Current Condition Evaluation Date 09/08/20 Treatment Diagnosis s/p L TKA revision with spacer ; difficulty in walking Onset Date 09/07/20 Precautions Brace L knee immobilizer Weight Bearing Status Weight Bearing Status Touch Down Weight Bearing Allowed Weight Bearing Amount (enter % TTWB with knee immobilizer LLE or #) (%) M3 PT-IP Subjective Start: 09/08/20 12:21 Freq: NEEDED Status: Active Protocol: Document 09/08/20 10:35 AB (Rec: 09/08/20 12:35 AB [email or web address]) Subjective Physical Therapy Visit Type Type Initial Evaluation Visit Start Time 10:35 Visit Stop Time 11:12 Total Visit Minutes 37 Notes per MD note: pt is PWB on LLE but from weight bearing orders pt is touch down weight bearing. informed nurse and obtained clarification. Per yariel guy PA: pt is TTWB at this time and he will talk to Dr. Trujillo regarding clarification for PWB. Number of EXPRESSIVE MUSIC THERAPIST Visits 0 Physical Therapy Visit Comments Patient Comments pt is agreeable to do PT Therapy Pain Assessment Pain When Pain Assessed At Rest Pain Present Pain Present Pain Reported Location left knee Intensity 7 Scale Used Numeric (0 - 10) Pain Management Techniques Distraction,Elevation, Modification of Treatment,Re- positioning,Timing of Activity with Medications M4 PT-IP Mobility and Gait Start: 09/08/20 12:21 Freq: NEEDED Status: Active Protocol: Document 09/08/20 10:35 AB (Rec: 09/08/20 12:35 AB [id number]) PT-Bed Mobility Assessment Supine to Sit Supine to Sit Minimal Assistance Scooting Scooting to Edge of Bed Minimal Assistance,Moderate Assistance PT-Transfer Assessment Sit to and From Stand Sit to and from Stand Moderate Assistance,Maximum Assistance,1 Person Assistance ,Use of Upper Extremities Equipment Transfer Assistive Device Gait Belt,Front Wheeled Walker Orthotic/Prosthetic Devices or Brace: No Transfers Transfer Destination Chair Transfer Technique Stand Step Pivot Transfer Ability Level of Assist Maximum Assistance,1 Person Assistance,Use of Upper Extremities Comments Mobility Comments educated pt regarding weight bearing precaution and use of knee immobilizer. completed supine to sit with HOB elevated min A with LLE movement and pt used bed rail to assist. educated on how to use FWW and maintain TTWB on LLE. completed sit to stand mod to max A and max cues. completed step transfer using FWW max A and max cues. positioned on chair. call light and table placed within reach. informed pt regarding equipement needs: showe chair and w/c Gait Assessment Comments Gait Comments unable at this time PT-Balance Assessment Sitting Balance and Reactions Static Sitting Balance Ability Good Dynamic Sitting Balance Ability Good Standing Balance and Reactions Static Standing Balance Ability Poor Dynamic Standing Balance Ability Poor Device Used FWW M5 PT-IP Objective Assessments Start: 09/08/20 12:21 Freq: NEEDED Status: Active Protocol: Document 09/08/20 10:35 AB (Rec: 09/08/20 12:35 AB [id number]) Orientation Orientation/Cognition Level of Alertness Alert Orientation Name,Place,Situation Language Function Ability Hard of Hearing Safety Awareness Decreased Safety Awareness Memory Description Short Term Impaired Strength Lower Extremity Strength Assessment Left Impaired Hip 3-/5 Muscle Tone Muscle Tone WNL Yes M6 PT-IP Treatment Start: 09/08/20 12:21 Freq: NEEDED Status: Active Protocol: Document 09/08/20 10:35 AB (Rec: 09/08/20 12:35 AB [id number]) Physical Therapy Treatment Education Education Provided Precautions,Weight Bearing Status,Safety Brace Education [place],Patient M7 PT-IP Assessment and Plan Start: 09/08/20 12:21 Freq: NEEDED Status: Active Protocol: Document 09/08/20 10:35 AB (Rec: 09/08/20 12:35 AB [email or web address]) PT Summary Assessment and Plan Potential Rehabilitation Potential Fair Status of Condition at Evaluation Evolving Summary Impairments Pain,ROM,Strength,Balance, Coordination,Sensation,Tone, Cognition,Bed Mobility, Transfers,Gait,Activity Tolerance Assessment Summary pt requiring max A with transfers using FWW and unable to ambulate at this time. Pt requires assist to maintain TTWB on LLE. d/c plan depending on progress and will conduct caregiver training when appropriate but at this time, may require SNF rehab. Goals Bed Mobility Goal Standby Assistance Transfer Goal Standby Assistance,Front Wheeled Walker Gait Goal Standby Assistance,Front Wheel Walker Gait Distance 30 Days to Meet Goals 10 Frequency of Treatment Frequency Of Treatment Twice a Day Treatment Plan Physical Therapy Treatment Plan Bed Mobility Training,Transfer Training,Gait Training, Therapeutic Exercise,Balance Retraining,Post Op Education, Discharge Planning,Hot or Cold Pack,Neuromuscular Re-ed, Coordination Retraining,Manual Therapy Precautions Brace LLE knee immobilizer Other Precautions TTWB LLE Recommendations To Nursing Amount of Assist Needed 2 Person Assist Discharge Recommendations PT Discharge Recommendations Home with 24/7 Assist Available,Home Health,SNF Rehab Other Discharge Recommendations depending on progress: SNF vs home with 24/7 assist available and HHPT Transportation Needs at Discharge Private Vehicle,Wheelchair/ Cabulance
[2020-09-08 11:00] VITALS: BP 132/49; PULSE 82; RESP 17; TEMP 36.8; O2SAT 97
--- NOTE | 2020-09-08 11:00 | CM.DANOTE ---
Addendum entered by Akilah Rehman R.N. 09/08/20 12:53: After reviewing physical therapy's notes, which stated that she is currently max assist, went ahead and called [facility] (formerly [facility] and spoke to Raina in admissions. Raina indicated, she has several beds available. Gave her update on patient, and that she will also need 6 weeks of IV antibiotics. Went ahead and sent referral. If patient does go to [facility], she would be eligible by Sunday. Original Note: DCP: Case received, EMR reviewed and met with patient. Introduced self and role. Was able to obtain information from patient regarding her baseline activity status as far as her mobility, and her current living situation, prior to hospitalization. DCP assessment completed with information currently available. Patient is an 80 year old female who admitted yesterday morning to the care of the orthopedic team. PCP: Dr. Arguello. Payer: confirmed: Medicare/[employer]. Patient came to the hospital for a surgical procedure. 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 According to notes, patient will need 6 weeks of IV antibiotics. PICC line is to be placed today. According to today's progress note from Yariel Guy, PAC, patient will be on Ceftriaxone QD. Checked in with patient. She is alert and oriented, she resides in [place] with her life partner, Ye Nunez. Patient stated that she drives, uses a cane at home. Discussed fdc briefly, and patient is hoping for home. She was hoping that she could have home infusions, but let her know that Medicare does not cover this. She is open to outpatient IV treatments, and is hoping for [facility] in [place]. Having Randee, melter assistant, fax over information to [facility] clinic including face sheet, progress note from today showing which antibiotics she will be on. Patient indicated it would be easier for her to go there, instead of her coming over here to oncology clinic. Confirmed that her partner can drive her. She has not yet worked with P.T. P: DCP to continue to follow. Will attempt to get patient set up with outpatient infusions at [facility] at [facility], but will also need to see how she does with P.T. Akilah Rehman RN/Raw Scales Operator
--- NOTE | 2020-09-08 11:33 | CM.DPNOTE ---
Addendum entered by Randee Canas 09/08/20 11:38: Fax confirmation received on referral packet to [facility] at [phone] 09/08/20. Randee Canas CM Asst. Original Note: Faxed referral packet [facility] per Vida on 09/08/20 for 6-week antibiotic outpatient treatment; spoke to Whit who asked me to fax referral to no. [phone]. Randee Canas CM Asst.
--- NOTE | 2020-09-08 13:52 | PT.IPTN ---
Current Diagnoses Infection and inflammatory reaction due to other internal joint prosthesis, initial encounter (09/07/20) Presence of left artificial hip joint (09/07/20) Surgery Performed Operation Date: 09/07/20 11:30 Actual Procedures p Total Knee Arthroplasty Revision w/Placement of Antibiotic Spacer(Left) - Camila Trujillo MD Physical Therapy Treatment Note M2 PT-IP Current Condition Start: 09/08/20 12:21 Freq: NEEDED Status: Active Protocol: Document 09/08/20 10:35 AB (Rec: 09/08/20 12:35 AB [email or web address]) Physical Therapy Current Condition Current Condition Evaluation Date 09/08/20 Treatment Diagnosis s/p L TKA revision with spacer ; difficulty in walking Onset Date 09/07/20 Precautions Brace L knee immobilizer Weight Bearing Status Weight Bearing Status Touch Down Weight Bearing Allowed Weight Bearing Amount (enter % TTWB with knee immobilizer LLE or #) (%) M3 PT-IP Subjective Start: 09/08/20 12:21 Freq: NEEDED Status: Active Protocol: Document 09/08/20 13:52 AB (Rec: 09/08/20 16:41 AB [email or web address]) Subjective Physical Therapy Visit Type Type Treatment Note Visit Start Time 13:52 Visit Stop Time 14:29 Total Visit Minutes 37 Number of WIRE PHOTO OPERATOR Visits 0 Therapy Pain Assessment Pain When Pain Assessed During Mobility Pain Present Pain Present Pain Reported Location left knee Scale Used pain scale not stated Pain Management Techniques Apply Cold,Distraction, Modification of Treatment,Re- positioning,Timing of Activity with Medications M4 PT-IP Mobility and Gait Start: 09/08/20 12:21 Freq: NEEDED Status: Active Protocol: Document 09/08/20 13:52 AB (Rec: 09/08/20 16:41 AB [email or web address]) PT-Bed Mobility Assessment Sit to Supine Sit to Supine Maximum Assistance,Bedrails Scooting Scooting Up and Down in Bed Maximum Assistance PT-Transfer Assessment Sit to and From Stand Sit to and from Stand Maximum Assistance,1 Person Assistance,Use of Upper Extremities Equipment Transfer Assistive Device Gait Belt,Front Wheeled Walker Orthotic/Prosthetic Devices or Brace: No Transfers Transfer Destination Bed Transfer Technique Stand Step Pivot Transfer Ability Level of Assist Maximum Assistance,1 Person Assistance,Use of Upper Extremities Comments Mobility Comments pt sitting on chair and requested to go back to bed. pt's SO in room. pt completed sit to stand max A and cues and completed step transfer using FWW max A and max cues. required assist to maintain TTWB and pt is unable to follow and NWB is then instructed for safety and pt was able to keep LLE off the floor after instructions provided and maintained during step pivot transfer using fWW . pt completed sit to supine max A and max cues. required max A for LLE elevation and positioning. positioned pt in bed. call light and table placed within reach. informed pt and SO regarding SNF recommendation but depending on insurance converage. pt's SO stated that he cannot assist pt physically and was upset when informed regarding insurance coverage and inpt eligibility. informed pt's SO that issue will be addressed with child welfare caseworker and PT does not have anything to do with pt's hospital stay status. talked with child welfare caseworker and was informed that pt has changed to an inpt status. informed pt's SO and case mangjacinto Mcpherson came in to talk to pt and pt's SO and was assured of inpt status and SNF coverage. pt's SO stated that he feels better now that pt is inpt. also informed pt's SO to bring pt's orthotics and shoes. pt stated that she has charcot foot and uses orthotics on LLE and that R foot had surgery before. Gait Assessment Comments Gait Comments unable at this time M5 PT-IP Objective Assessments Start: 09/08/20 12:21 Freq: NEEDED Status: Active Protocol: Document 09/08/20 10:35 AB (Rec: 09/08/20 12:35 AB [email or web address]) Orientation Orientation/Cognition Level of Alertness Alert Orientation Name,Place,Situation Language Function Ability Hard of Hearing Safety Awareness Decreased Safety Awareness Memory Description Short Term Impaired Strength Lower Extremity Strength Assessment Left Impaired Hip 3-/5 Muscle Tone Muscle Tone WNL Yes M6 PT-IP Treatment Start: 09/08/20 12:21 Freq: NEEDED Status: Active Protocol: Document 09/08/20 13:52 AB (Rec: 09/08/20 16:41 AB [email or web address]) Physical Therapy Treatment Education Education Provided Precautions,Weight Bearing Status,Safety M7 PT-IP Assessment and Plan Start: 09/08/20 12:21 Freq: NEEDED Status: Active Protocol: Document 09/08/20 13:52 AB (Rec: 09/08/20 16:41 AB [id number]) PT Summary Assessment and Plan Potential Rehabilitation Potential Good Summary Impairments Pain,ROM,Strength,Balance, Coordination,Sensation,Tone, Cognition,Bed Mobility, Transfers,Gait,Activity Tolerance Progress Towards Goals Slow Progress due to Medical Issues,Slow Progress due to Activity Tolerance,Slow Progress - Other Assessment Summary pt requiring max A with sit to stand and transfers and unable to ambulate at this time but able to do a step pivot transfer with max A. pt will need SNF rehab at this time to improve mobility independence prior to d/c home . Goals Bed Mobility Goal Standby Assistance Transfer Goal Standby Assistance,Front Wheeled Walker Gait Goal Standby Assistance,Front Wheel Walker Gait Distance 30 Days to Meet Goals 10 Frequency of Treatment Frequency Of Treatment Twice a Day Treatment Plan Physical Therapy Treatment Plan Bed Mobility Training,Transfer Training,Gait Training, Therapeutic Exercise,Balance Retraining,Post Op Education, Discharge Planning,Hot or Cold Pack,Neuromuscular Re-ed, Coordination Retraining,Manual Therapy Precautions Brace LLE knee immobilizer Other Precautions TTWB LLE Recommendations To Nursing Amount of Assist Needed 2 Person Assist Discharge Recommendations PT Discharge Recommendations SNF Rehab Transportation Needs at Discharge Wheelchair/Cabulance
[2020-09-08 15:40] VITALS: BP 114/68; PULSE 80; RESP 16; TEMP 36.6; O2SAT 94
[2020-09-08] MEDS: OXYCODONE IR 10 MG TABLET PO (15:59)
--- NOTE | 2020-09-08 19:18 | PC.NURSE ---
Addendum entered by Sidra Mata R.N. 09/08/20 22:03: Pt rates left knee pain 4/10. Administered 5 mg oxycodone. No change in neurovascular status this evening. Pt declines to reposition in bed. IV to right wrist painful with normal saline flush. This line d/c'd and new access established left hand. IV antibiotics infusing as ordered without difficulty. Original Note: Pt requests pain medications for left knee pain, throbbing in nature 12/21, @ beginning of shift. Medicated as per emar. Edema to LLE > RLE. Palpable pedal pulses BL. Immobilizer LLE left open while pt in bed. Ice to left knee jose l wrap. MELVIN drain/dressing intact and green light OK intact to battery pack. HV compressed and penny to gravity. Contact precautions implemented with micro result of gram positive cocci. Pt was informed. Pt admits to full sensation to BL LE's. Pain to left knee decreases to 4/10 following medications. Per evening regional office coordinator, Arabella PICC to be placed in a.m. 09/09 @ [id number].
[2020-09-08 19:40] VITALS: BP 131/49; PULSE 82; RESP 17; TEMP 36.7; O2SAT 95
[2020-09-08] MEDS: SODIUM CHLORIDE 0.9% FLUSH 10 ML IV (20:39)
[2020-09-08] MEDS: SODIUM CHLORIDE 0.9% 250 ML 21 ML IV (20:39)
[2020-09-09] MEDS: IBUPROFEN 400 MG TABLET PO ×6 (00:03→20:44)
[2020-09-09] MEDS: OXYCODONE IR 5 MG TABLET PO ×3 (00:03→20:42)
[2020-09-09 00:29] VITALS: BP 117/50; PULSE 80; RESP 16; TEMP 36.4; O2SAT 94
[2020-09-09 05:00] VITALS: BP 120/59; PULSE 74; RESP 16; TEMP 36.6; O2SAT 94
[2020-09-09] MEDS: CEFAZOLIN 2 GM/100 ML FROZ.PIGGY IV ×3 (05:27→20:44)
[2020-09-09] MEDS: PANTOPRAZOLE 20 MG TABLET PO (05:28)
[2020-09-09] MEDS: LEVOTHYROXINE 25 MCG TABLET 50 MCG PO (05:29)
--- NOTE | 2020-09-09 08:13 | DI.RAD.S_ITS ---
PROCEDURE: XR CHEST FOR PICC 1V INDICATIONS: picc TECHNIQUE: One view of the chest was acquired. COMPARISON: None. FINDINGS: Surgical changes and devices: A left upper extremity PICC is in place with the distal tip projecting near the lower superior vena cava. Postsurgical changes involving the bilateral humeral heads. Partially imaged surgical hardware from previous lumbar spinal fusion. Lungs and pleura: Mild diffuse interstitial prominence. Streaky bibasilar opacities. Minimal blunting of the bilateral costophrenic angles may represent small bilateral pleural effusions. No pneumothorax seen. No focal consolidations. Mediastinum: Mediastinal contours appear normal. Heart size is normal. Bones and chest wall: No suspicious bony lesions. Overlying soft tissues appear unremarkable. IMPRESSION: 1. Left upper extremity PICC is in place with the distal tip projecting over the lower superior vena cava. 2. Mild diffuse interstitial prominence, streaky bibasilar opacities, and possible small bilateral pleural effusions. Findings may represent sequela of inflammatory/infectious process versus early pulmonary edema. Recommend clinical correlation. Dictated by: Aristeo Oreilly M.D. on 09/09/2020 at 8:43 Approved by: Aristeo Oreilly M.D. on 09/09/2020 at 8:45
[2020-09-09] MEDS: SODIUM CHLORIDE 0.9% FLUSH 10 ML IV ×2 (09:00→20:45)
[2020-09-09] MEDS: estradioL 1 MG TABLET PO (10:02)
[2020-09-09] MEDS: FISH OIL 1,000 MG CAPSULE 1000 MG PO (10:02)
[2020-09-09] MEDS: DOCUSATE 100 MG CAPSULE PO ×2 (10:02→20:43)
[2020-09-09] MEDS: TRIAMTERENE/HCTZ 37.5/25 CAPSULE 1 CAP PO (10:02)
[2020-09-09] MEDS: ACETAMINOPHEN 325 MG TABLET 650 MG PO ×3 (10:02→20:43)
[2020-09-09 10:03] VITALS: BP 140/59; PULSE 88; RESP 19; TEMP 36.8; O2SAT 96
[2020-09-09] MEDS: ASPIRIN EC 81 MG TABLET PO ×2 (10:03→20:43)
--- NOTE | 2020-09-09 11:15 | PT.IPTN ---
Current Diagnoses Infection and inflammatory reaction due to other internal joint prosthesis, initial encounter (09/07/20) Presence of left artificial hip joint (09/07/20) Surgery Performed Operation Date: 09/07/20 11:30 Actual Procedures p Total Knee Arthroplasty Revision w/Placement of Antibiotic Spacer(Left) - Camila Trujillo MD Physical Therapy Treatment Note M2 PT-IP Current Condition Start: 09/08/20 12:21 Freq: NEEDED Status: Active Protocol: Document 09/08/20 10:35 AB (Rec: 09/08/20 12:35 AB [email or web address]) Physical Therapy Current Condition Current Condition Evaluation Date 09/08/20 Treatment Diagnosis s/p L TKA revision with spacer ; difficulty in walking Onset Date 09/07/20 Precautions Brace L knee immobilizer Weight Bearing Status Weight Bearing Status Touch Down Weight Bearing Allowed Weight Bearing Amount (enter % TTWB with knee immobilizer LLE or #) (%) M3 PT-IP Subjective Start: 09/08/20 12:21 Freq: NEEDED Status: Active Protocol: Document 09/09/20 11:15 AB (Rec: 09/09/20 13:02 AB [email or web address]) Subjective Physical Therapy Visit Type Type Treatment Note Visit Start Time 11:15 Visit Stop Time 11:32 Total Visit Minutes 17 Number of WIND FARM DESIGNER Visits 0 Physical Therapy Visit Comments Patient Comments pt is agreeable to do PT Therapy Pain Assessment Pain When Pain Assessed During Mobility Pain Present Pain Present Pain Reported Location left knee Scale Used pain scale not stated Pain Management Techniques Distraction,Elevation, Modification of Treatment,Re- positioning,Timing of Activity with Medications M4 PT-IP Mobility and Gait Start: 09/08/20 12:21 Freq: NEEDED Status: Active Protocol: Document 09/09/20 11:15 AB (Rec: 09/09/20 13:02 AB [id number]) PT-Bed Mobility Assessment Supine to Sit Supine to Sit Moderate Assistance,Maximum Assistance Scooting Scooting to Edge of Bed Moderate Assistance PT-Transfer Assessment Sit to and From Stand Sit to and from Stand Maximum Assistance,1 Person Assistance,Use of Upper Extremities Equipment Transfer Assistive Device Gait Belt,Front Wheeled Walker Orthotic/Prosthetic Devices or Brace: No Transfers Transfer Destination Chair Transfer Technique Stand Step Pivot Transfer Ability Level of Assist Moderate Assistance,1 Person Assistance,Use of Upper Extremities Comments Mobility Comments BP in supine but with HOB elevated to ~ 30 de/53. pt completed supine to sit mod A with LLE mobility. pt required mod A for repositioning trunk towadards end of bed mobility. pt was able to sit on EOB SBA. reviewed precaution/weight bearing restriction. pt completed sit to stand max A and cues. pt prefers to do NWB at this time and was able to maintain NWB. completed step transfer to chair mod A and cues. pt refused further activity and stated that she just wants to rest. positioned pt on chair. call light and table placed within reach. Gait Assessment Comments Gait Comments unable at this time M5 PT-IP Objective Assessments Start: 09/08/20 12:21 Freq: NEEDED Status: Active Protocol: Document 09/08/20 10:35 AB (Rec: 09/08/20 12:35 AB [email or web address]) Orientation Orientation/Cognition Level of Alertness Alert Orientation Name,Place,Situation Language Function Ability Hard of Hearing Safety Awareness Decreased Safety Awareness Memory Description Short Term Impaired Strength Lower Extremity Strength Assessment Left Impaired Hip 3-/5 Muscle Tone Muscle Tone WNL Yes M6 PT-IP Treatment Start: 09/08/20 12:21 Freq: NEEDED Status: Active Protocol: Document 09/09/20 11:15 AB (Rec: 09/09/20 13:02 AB [id number]) Physical Therapy Treatment Education Education Provided Precautions,Weight Bearing Status,Safety M7 PT-IP Assessment and Plan Start: 09/08/20 12:21 Freq: NEEDED Status: Active Protocol: Document 09/09/20 11:15 AB (Rec: 09/09/20 13:02 AB [id number]) PT Summary Assessment and Plan Potential Rehabilitation Potential Good Summary Impairments Pain,ROM,Strength,Balance, Coordination,Sensation,Tone, Cognition,Bed Mobility, Transfers,Gait,Activity Tolerance Progress Towards Goals Slow Progress due to Medical Issues,Slow Progress due to Activity Tolerance,Slow Progress - Other Assessment Summary pt improving slowly but continues to require mod to max A with mobility using FWW and unable to ambulate at this time. will continue to assess progress but pt will require SNF rehab to improve strength and functional independence. Goals Bed Mobility Goal Standby Assistance Transfer Goal Standby Assistance,Front Wheeled Walker Gait Goal Standby Assistance,Front Wheel Walker Gait Distance 30 Days to Meet Goals 10 Frequency of Treatment Frequency Of Treatment Twice a Day Treatment Plan Physical Therapy Treatment Plan Bed Mobility Training,Transfer Training,Gait Training, Therapeutic Exercise,Balance Retraining,Post Op Education, Discharge Planning,Hot or Cold Pack,Neuromuscular Re-ed, Coordination Retraining,Manual Therapy Precautions Brace LLE knee immobilizer Other Precautions TTWB LLE Recommendations To Nursing Amount of Assist Needed 2 Person Assist Discharge Recommendations PT Discharge Recommendations SNF Rehab Transportation Needs at Discharge Wheelchair/Cabulance
--- NOTE | 2020-09-09 12:34 | CM.DPC ---
DCP Cont: Raina from [facility] in [place] called with updated status. Let her know that today's progress notes are not yet in, along with therapy notes. Let her know that she will be faxed updated notes as soon as they are in. Confirmed acceptance for tomorrow. Completed PASSR. PICC line was placed this morning. Updated her on note from yesterday which antibiotic that patient should be discharging on, but will update after today's note. P: DCP to continue to follow. Plan is for [facility] tomorrow, they will transport. PASSR completed, will need orders. Plan B is [facility]. Akilah Rehman RN/Proposal Engineer
--- NOTE | 2020-09-09 13:20 | PT.IPTN ---
Current Diagnoses Infection and inflammatory reaction due to other internal joint prosthesis, initial encounter (09/07/20) Presence of left artificial hip joint (09/07/20) Surgery Performed Operation Date: 09/07/20 11:30 Actual Procedures p Total Knee Arthroplasty Revision w/Placement of Antibiotic Spacer(Left) - Camila Trujillo MD Physical Therapy Treatment Note M2 PT-IP Current Condition Start: 09/08/20 12:21 Freq: NEEDED Status: Active Protocol: Document 09/08/20 10:35 AB (Rec: 09/08/20 12:35 AB [email or web address]) Physical Therapy Current Condition Current Condition Evaluation Date 09/08/20 Treatment Diagnosis s/p L TKA revision with spacer ; difficulty in walking Onset Date 09/07/20 Precautions Brace L knee immobilizer Weight Bearing Status Weight Bearing Status Touch Down Weight Bearing Allowed Weight Bearing Amount (enter % TTWB with knee immobilizer LLE or #) (%) M3 PT-IP Subjective Start: 09/08/20 12:21 Freq: NEEDED Status: Active Protocol: Document 09/09/20 13:20 AB (Rec: 09/09/20 16:37 AB [email or web address]) Subjective Physical Therapy Visit Type Type Treatment Note Visit Start Time 13:20 Visit Stop Time 13:45 Total Visit Minutes 25 Number of MUD ANALYSIS WELL LOGGING OPERATOR Visits 0 Physical Therapy Visit Comments Patient Comments pt is requesting to go back to bed. Therapy Pain Assessment Pain When Pain Assessed During Mobility Pain Present Pain Present Pain Reported Location left knee Scale Used pain scale not stated Pain Management Techniques Apply Cold,Distraction, Modification of Treatment,Re- positioning,Timing of Activity with Medications M4 PT-IP Mobility and Gait Start: 09/08/20 12:21 Freq: NEEDED Status: Active Protocol: Document 09/09/20 13:20 AB (Rec: 09/09/20 16:37 AB [id number]) PT-Bed Mobility Assessment Sit to Supine Sit to Supine Maximum Assistance,1 Person Assistance PT-Transfer Assessment Sit to and From Stand Sit to and from Stand Maximum Assistance,1 Person Assistance,Use of Upper Extremities Equipment Transfer Assistive Device Gait Belt,Front Wheeled Walker Orthotic/Prosthetic Devices or Brace: Yes Transfers Transfer Destination Bed Transfer Technique Stand Step Pivot Transfer Ability Level of Assist Maximum Assistance,1 Person Assistance,Use of Upper Extremities Comments Mobility Comments pt stated that she has to go back to bed. stated that the nurse will give her her IV antibiotic and she has to be in bed. completed sit to stand from the chair x 2 attempts max A and max cues for weight bearing restriction . pt with difficulty with transitioning UE to FWW requiring max A to maintain standing balance. pt completed step transfer using FWW max A and cues. required assist with FWW positioning. completed sit to supine max A for LLE elevation and positioning in bed. call light and table placed within reach. completed gentle AAROM on L knee and pt tolerated well . M5 PT-IP Objective Assessments Start: 09/08/20 12:21 Freq: NEEDED Status: Active Protocol: Document 09/08/20 10:35 AB (Rec: 09/08/20 12:35 AB [email or web address]) Orientation Orientation/Cognition Level of Alertness Alert Orientation Name,Place,Situation Language Function Ability Hard of Hearing Safety Awareness Decreased Safety Awareness Memory Description Short Term Impaired Strength Lower Extremity Strength Assessment Left Impaired Hip 3-/5 Muscle Tone Muscle Tone WNL Yes M6 PT-IP Treatment Start: 09/08/20 12:21 Freq: NEEDED Status: Active Protocol: Document 09/09/20 13:20 AB (Rec: 09/09/20 16:37 AB [email or web address]) Physical Therapy Treatment Exercises Exercises Heel Slides Education Education Provided Precautions,Weight Bearing Status,Safety Other Treatments Other Treatment Performed gentle AAROM conducted on L knee M7 PT-IP Assessment and Plan Start: 09/08/20 12:21 Freq: NEEDED Status: Active Protocol: Document 09/09/20 13:20 AB (Rec: 09/09/20 16:37 AB [email or web address]) PT Summary Assessment and Plan Potential Rehabilitation Potential Fair Summary Impairments Pain,ROM,Strength,Balance, Coordination,Sensation,Tone, Cognition,Bed Mobility, Transfers,Gait,Activity Tolerance Progress Towards Goals Slow Progress due to Pain,Slow Progress due to Medical Issues,Slow Progress due to Activity Tolerance Assessment Summary pt with slow progress and continues to require max A for mobility using FWW and unable to ambulate at this time. continues to have low activity tolerance. pt will need SNF rehab to improve strength and functional independence. Goals Bed Mobility Goal Standby Assistance Transfer Goal Standby Assistance,Front Wheeled Walker Gait Goal Standby Assistance,Front Wheel Walker Gait Distance 30 Days to Meet Goals 10 Frequency of Treatment Frequency Of Treatment Twice a Day Treatment Plan Physical Therapy Treatment Plan Bed Mobility Training,Transfer Training,Gait Training, Therapeutic Exercise,Balance Retraining,Post Op Education, Discharge Planning,Hot or Cold Pack,Neuromuscular Re-ed, Coordination Retraining,Manual Therapy Precautions Brace LLE knee immobilizer Other Precautions TTWB LLE contact precaution Recommendations To Nursing Amount of Assist Needed 2 Person Assist Discharge Recommendations PT Discharge Recommendations SNF Rehab Transportation Needs at Discharge Wheelchair/Cabulance
[2020-09-09 14:24] LABS: COVID19 - ADMIT (NP swab/PCR) Negative (Negative)
[2020-09-09 16:00] VITALS: BP 110/57; PULSE 78; RESP 18; TEMP 36.4; O2SAT 96
--- NOTE | 2020-09-09 17:39 | P.PN_ITS ---
Subjective Subjective Date Patient Seen: 09/09/20 Time Patient Seen: 17:39 Interval history: Patient states she is doing well and is in minimal discomfort at the moment. Patient denies fever, chills, nausea, shortness of breath, chest pain, or urinary retention. Patient reports good sensation throughout the bilateral lower extremities to light touch. Patient notes that she is apprehensive about weight-bearing. Exam Vital Signs (past 8 hours): - 09/09/20 10:03 09/09/20 16:00 Temperature 98.3 F 97.6 F Pulse Rate 88 78 Respiratory Rate 19 18 Blood Pressure 140/59 L 110/57 L Pulse Oximetry 96 96 Oxygen Delivery Method Room Air Oxygen Flow Rate 0 Narrative Exam Narrative: 80-year-old female postop day 2 status post revision of left total knee arthroplasty with removal of infected hardware. Patient is resting comfortably in bed, is in no acute distress, is alert and oriented x3. Skin is warm and dry, and the skin surrounding the incision site is free of erythema, warmth, induration, or discharge. Good sensation appreciated throughout the bilateral lower extremities to light touch. Calves are soft and nontender, negative Homans sign. No other signs of DVT appreciated. Capillary refill less than 2 seconds. Ankle plantar flexion, dorsiflexion, inversion, eversion performed bilaterally without difficulty or discomfort. Const General: cooperative, healthy appearing and comfortable Resp Effort & Inspection: normal respiratory effort and able to speak in complete sentences Skin General: no rashes or lesions noted Objective Labs Result Diagrams: 09/08/20 06:25 09/07/20 16:39 Labs: Laboratory Results - last 24 hr 09/09/20 13:10 SARS-CoV-2 (PCR) Negative [facility] Medical History Angiomyolipoma of right kidney Chronic cough Collagenous colitis Cyst of left breast (2006) Cyst of left kidney Edema GERD (gastroesophageal reflux disease) Hearing loss Hepatic cyst Hepatic hemangioma HTN (hypertension) Hypothyroid Impaired fasting glucose Pneumonia (2006) Scoliosis Surgical History History of arthroplasty of both shoulders History of arthroplasty of left knee (11/13/19) History of arthroplasty of right knee History of bilateral cataract extraction History of hysterectomy History of lumbar fusion (08/29/16) History of total left hip arthroplasty Hx of BSO (bilateral salpingo-oophorectomy) Hx of dilation and curettage Hx of repair of right rotator cuff S/P foot surgery, right Social History household members: significant other Smoking Status: Never smoker alcohol intake: current Assessment & Plan Post-op Postoperative Procedures: Procedures Operation Date: 09/07/20 11:30 Actual Procedures Side Surgeon p Total Knee Arthroplasty Revision w/Placement of Antibiotic Spacer Left Camila Trujillo MD Postoperative day: 2 Postoperative status: doing well Postoperative plan narrative: Patient is to work on ambulating with partial weight-bearing status. Patient is to work on gentle [id number] exercises when not weight-bearing. IV cefazolin 2 g IV q.8 hours while hospitalized. Ceftriaxone 2 g IV q.d. at discharge. Partial weight-bearing on the left lower extremity in knee immobilizer. Knee immobilizer as needed for comfort. Quality VTE Deep Vein Thrombosis/Pulmonary Embolism Present on Admission: No
--- NOTE | 2020-09-09 17:59 | PC.NURSE ---
Addendum entered by Sidra Mata R.N. 09/09/20 22:47: Pt requests oxycodone for pain 4-5/10 LLE. No change in neurovascular status this evening shift. BL scd's in place. Discussion with pt re benefit of cortez hose, which pt declines to let this specifications writer attempt to place to LLE. Addendum entered by Sidra Mata R.N. 09/09/20 20:24: Refuses to wear cortez hose to LLE as ordered by DONNY. Original Note: Pt resting quietly in bed with spouse in room. Pt on contact precautions pending wound sensitivities and identification. Pt states pain to left knee is ''okay 4/10. Refuses offer for narcotic at this time. Castro to gravity. Hemovac compressed with MELVIN dressing in place to left knee under jose l wrap. Green light OK blinking in battery pack. Palpable pedal pulses BL with edema to BL LE's L > R. Ice to left knee. Immobilizer open while pt in bed. AKUA Clapper in to see patient and conferring with Dr. Trujillo who is also in house. AKUA issues verbal orders to this specifications writer.
--- NOTE | 2020-09-09 18:29 | P.PN_ITS ---
Subjective Subjective Date Patient Seen: 09/09/20 Time Patient Seen: 17:05 Interval history: Parker notes she has significant pain into the left leg. She really has not been out of bed much. Other than leg pain she is doing okay she feels reasonably good. Exam Vital Signs (past 8 hours): - 09/09/20 16:00 Temperature 97.6 F Pulse Rate 78 Respiratory Rate 18 Blood Pressure 110/57 L Pulse Oximetry 96 Oxygen Delivery Method Room Air Oxygen Flow Rate 0 Narrative Exam Narrative: HEENT is benign lungs are clear can fire toe flexors and extensors, she has moderate to severe swelling in the left lower extremity. It is slightly larger than the right lower extremity she does have some component of chronic bilateral left greater than right lower extremity edema, there is moderate crepitation with gentle range of motion of the left knee and she is painful and guarding. Objective Labs Result Diagrams: 09/08/20 06:25 09/07/20 16:39 Labs: Laboratory Results - last 24 hr 09/09/20 13:10 SARS-CoV-2 (PCR) Negative [facility] Medical History Angiomyolipoma of right kidney Chronic cough Collagenous colitis Cyst of left breast (2006) Cyst of left kidney Edema GERD (gastroesophageal reflux disease) Hearing loss Hepatic cyst Hepatic hemangioma HTN (hypertension) Hypothyroid Impaired fasting glucose Pneumonia (2006) Scoliosis Surgical History History of arthroplasty of both shoulders History of arthroplasty of left knee (11/13/19) History of arthroplasty of right knee History of bilateral cataract extraction History of hysterectomy History of lumbar fusion (08/29/16) History of total left hip arthroplasty Hx of BSO (bilateral salpingo-oophorectomy) Hx of dilation and curettage Hx of repair of right rotator cuff S/P foot surgery, right Social History household members: significant other Smoking Status: Never smoker alcohol intake: current Assessment & Plan Assessment & Plan narrative: 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 I spoke to Dr. Curtis of RO from ID today callus having difficulty mobilizing and likely will need a stay in an ECF. She recommended that we do Ancef 2 g IV q.8 hours if she needs to be in the ECF. She has a hip PICC line in which she is tolerating without difficulty. It is okay to mobilize her out of bed to a chair she can be weight-bearing up to 100 lb on the left lower extremity in her knee immobilizer and it is okay also for her to do some very gentle range of motion exercises as long as she is nonweightbearing. Her drain is in leave it in until tomorrow. Were going to take her Castro catheter out tomorrow. I have recommended we get a repeat CBC, sed rate and C reactive protein tomorrow prior to her discharge to fpc facility. Discharge medications are Ancef 2 g IV q.8 hours. She will follow-up with me in 2 weeks. Quality VTE Deep Vein Thrombosis/Pulmonary Embolism Present on Admission: No
[2020-09-09 20:00] VITALS: BP 132/67; PULSE 84; RESP 18; TEMP 36.3
[2020-09-09] MEDS: SODIUM CHLORIDE 0.9% 250 ML 21 ML IV (20:30)
[2020-09-09] MEDS: polyethylene glycoL 3350 17 GM POWD.PACK PO (20:42)
--- NOTE | 2020-09-09 20:44 | PC.NURSE ---
Patient refused compresion socks on. RN notified.
[2020-09-10] VITALS: BP 123/57; PULSE 86; RESP 18; TEMP 36.4; O2SAT 93
[2020-09-10] MEDS: IBUPROFEN 400 MG TABLET PO ×4 (00:44→13:00)
[2020-09-10 05:00] VITALS: BP 131/68; PULSE 76; RESP 18; TEMP 37.3; O2SAT 95
[2020-09-10] MEDS: CEFAZOLIN 2 GM/100 ML FROZ.PIGGY IV ×2 (05:03→13:00)
[2020-09-10] MEDS: PANTOPRAZOLE 20 MG TABLET PO (05:03)
[2020-09-10] MEDS: LEVOTHYROXINE 25 MCG TABLET 50 MCG PO (05:03)
[2020-09-10] MEDS: OXYCODONE IR 10 MG TABLET PO (05:35)
[2020-09-10 05:51] LABS: Add Manual Diff / Slide Review NO; Basophils Absolute Auto 100 /uL (0-100); Basophils Percent Auto 1.5 % (0-2); Eosinophils Absolute Auto 300 /uL (0-450); Eosinophils Percent Auto 7.2 % (2-4); Hematocrit 23.9 % (36-46); Hemoglobin 7.9 g/dL (12.0-16.0); Lymphocytes Absolute Auto 800 /uL (1100-4500); Lymphocytes Percent Auto 19.8 % (25-40); Mean Corpuscular HGB Conc 33.2 % (30-36); Mean Corpuscular Hemoglobin 30.3 PG (26-34); Mean Corpuscular Volume 91.3 fL (80-100); Monocytes Absolute Auto 400 /uL (0-900); Neutrophils Absolute Auto 2400 /uL (1500-7000); Neutrophils Percent Auto 60.5 % (50-75); Platelet Count 319 X10^3/uL (150-400); Red Blood Cell Count 2.62 X10^6/uL (4.0-5.2); Red Cell Distribution Width 13.8 % (11.6-14.8); White Blood Cell Count 3.9 X10^3/uL (4.5-11.0)
[2020-09-10 06:00] LABS: Erythrocyte Sedimentation Rate 102 MM/HR (0-20)
[2020-09-10 06:27] LABS: C-Reactive Protein Quant 7.9 mg/dL (<1.0)
[2020-09-10 09:00] VITALS: BP 120/60; PULSE 83; RESP 17; TEMP 36.6; O2SAT 94
[2020-09-10] MEDS: ACETAMINOPHEN 325 MG TABLET 650 MG PO ×2 (10:05→14:49)
[2020-09-10] MEDS: ASPIRIN EC 81 MG TABLET PO (10:06)
[2020-09-10] MEDS: TRIAMTERENE/HCTZ 37.5/25 CAPSULE 1 CAP PO (10:06)
[2020-09-10] MEDS: OXYCODONE IR 5 MG TABLET PO ×2 (10:06→14:48)
[2020-09-10] MEDS: FISH OIL 1,000 MG CAPSULE 1000 MG PO (10:07)
[2020-09-10] MEDS: SODIUM CHLORIDE 0.9% FLUSH 10 ML IV (10:07)
[2020-09-10] MEDS: DOCUSATE 100 MG CAPSULE PO (10:07)
[2020-09-10] MEDS: estradioL 1 MG TABLET PO (10:09)
--- NOTE | 2020-09-10 10:26 | PT.IPTN ---
Current Diagnoses Infection and inflammatory reaction due to other internal joint prosthesis, initial encounter (09/07/20) Presence of left artificial hip joint (09/07/20) Surgery Performed Operation Date: 09/07/20 11:30 Actual Procedures p Total Knee Arthroplasty Revision w/Placement of Antibiotic Spacer(Left) - Camila Trujillo MD Physical Therapy Treatment Note M2 PT-IP Current Condition Start: 09/08/20 12:21 Freq: NEEDED Status: Active Protocol: Document 09/08/20 10:35 AB (Rec: 09/08/20 12:35 AB [email or web address]) Physical Therapy Current Condition Current Condition Evaluation Date 09/08/20 Treatment Diagnosis s/p L TKA revision with spacer ; difficulty in walking Onset Date 09/07/20 Precautions Brace L knee immobilizer Weight Bearing Status Weight Bearing Status Touch Down Weight Bearing Allowed Weight Bearing Amount (enter % TTWB with knee immobilizer LLE or #) (%) M3 PT-IP Subjective Start: 09/08/20 12:21 Freq: NEEDED Status: Active Protocol: Document 09/10/20 10:02 SP (Rec: 09/10/20 12:01 SP [id number]) Subjective Physical Therapy Visit Type Type Treatment Note Visit Start Time 10:02 Visit Stop Time 10:26 Total Visit Minutes 24 Number of METAL TESTER Visits 1 Physical Therapy Visit Comments Patient Comments Pt willing to work with therapy. Therapy Pain Assessment Pain When Pain Assessed During Mobility Pain Present Pain Present Pain Reported Location left knee Intensity 6 Scale Used Numeric (0 - 10) Pain Management Techniques Modification of Treatment,Re- positioning,Timing of Activity with Medications M4 PT-IP Mobility and Gait Start: 09/08/20 12:21 Freq: NEEDED Status: Active Protocol: Document 09/10/20 10:02 SP (Rec: 09/10/20 12:01 SP [id number]) PT-Bed Mobility Assessment Sit to Supine Sit to Supine Minimal Assistance,1 Person Assistance Scooting Scooting Up and Down in Bed Minimal Assistance PT-Transfer Assessment Sit to and From Stand Sit to and from Stand Moderate Assistance,1 Person Assistance,Use of Upper Extremities Equipment Transfer Assistive Device Gait Belt,Front Wheeled Walker Orthotic/Prosthetic Devices or Brace: Yes Transfers Transfer Destination Bed Transfer Technique Stand Step Pivot Transfer Ability Level of Assist Moderate Assistance,1 Person Assistance,Use of Upper Extremities Comments Mobility Comments Pt was seated in chair with LE supported in chair, requested little more lift when arrived . METAL TESTER suggested mobility with therapy with agreeable. METAL TESTER lowered leg rest. Sit to stand Mod A x1 w/ FWW good NWB LLE with immobilizer donned. Pt lateral scoot on RLE then back small back hops on RLE using heavy BUE WB on FWW Mod A for balance support. Cuing given for spacial awarness backing up to bed from chair. Stand> sit Min A for slow descent. Sit scoot back>supine with Min support for LLE into bed then reposition while she scooted herself up in bed. Reviewed post op exercises: quad set, ankle pumps, hip abd w/ use of gait belt for self mobilitiy and AAROM L knee flexion assimulate heel slide Max A approx 30 deg tolerance. METAL TESTER redonned L knee immobilizer and provided call light and all needs in reach, donned SCDs nurse to check night setting per pt request, alarmed bed for safety before left. Gait Assessment Comments Gait Comments unable at this time, SPT using fWW maintained NWB. M5 PT-IP Objective Assessments Start: 09/08/20 12:21 Freq: NEEDED Status: Active Protocol: Document 09/08/20 10:35 AB (Rec: 09/08/20 12:35 AB [id number]) Orientation Orientation/Cognition Level of Alertness Alert Orientation Name,Place,Situation Language Function Ability Hard of Hearing Safety Awareness Decreased Safety Awareness Memory Description Short Term Impaired Strength Lower Extremity Strength Assessment Left Impaired Hip 3-/5 Muscle Tone Muscle Tone WNL Yes M6 PT-IP Treatment Start: 09/08/20 12:21 Freq: NEEDED Status: Active Protocol: Document 09/09/20 13:20 AB (Rec: 09/09/20 16:37 AB [email or web address]) Physical Therapy Treatment Exercises Exercises Heel Slides Education Education Provided Precautions,Weight Bearing Status,Safety Other Treatments Other Treatment Performed gentle AAROM conducted on L knee M7 PT-IP Assessment and Plan Start: 09/08/20 12:21 Freq: NEEDED Status: Active Protocol: Document 09/10/20 10:02 SP (Rec: 09/10/20 12:01 SP [id number]) PT Summary Assessment and Plan Potential Rehabilitation Potential Fair Status of Condition at Evaluation Evolving Summary Impairments Pain,ROM,Strength,Balance, Coordination,Sensation,Tone, Cognition,Bed Mobility, Transfers,Gait,Activity Tolerance Progress Towards Goals Slow Progress due to Pain,Slow Progress due to Medical Issues,Slow Progress due to Activity Tolerance Assessment Summary Pt required Mod A x1 person during sit<>stand and SPT using FWW maintained NWB on LLE using FWW per pt comfort even afte given education can allow 100# WB as of 09/09/20. Min A for LLE into bed. Instructed gentle LE exercises can perform to improve functional independence in mobility. Recommending SNF for benefits of improving strength and functional mobility within 100# WB precautions and fWW. Goals Bed Mobility Goal Standby Assistance Transfer Goal Standby Assistance,Front Wheeled Walker Gait Goal Standby Assistance,Front Wheel Walker Gait Distance 30 Days to Meet Goals 10 Frequency of Treatment Frequency Of Treatment Twice a Day Treatment Plan Physical Therapy Treatment Plan Bed Mobility Training,Transfer Training,Gait Training, Therapeutic Exercise,Balance Retraining,Post Op Education, Discharge Planning,Hot or Cold Pack,Neuromuscular Re-ed, Coordination Retraining,Manual Therapy Other Recommendations and Next Treatment Gentle ROM LE exercises NWB, Focus bed mob, transfers, gait if tolerated and maintain WB status, recently upgraded by Dr Trujillo 09/09/20 up to 100# LLE w/ immobilizer donned. Precautions Brace LLE knee immobilizer Other Precautions 100# WB LLE w/ immobilizer donned, 09/09/[address] Trujillo. contact precaution Recommendations To Nursing Amount of Assist Needed 1 Person Assist Discharge Recommendations PT Discharge Recommendations SNF Rehab Transportation Needs at Discharge Wheelchair/Cabulance
--- NOTE | 2020-09-10 11:44 | CM.DPC ---
DCP: continued: case received, EMR reviewed and noted the anticipated d/c date for transfer to snf level care is today. Dr. Trujillo has outline the expected dc plan in her note of last evening. Ortho AKUA Guy is now here and reports he has a lengthy list of patients to see and will see her as soon as he can. Checked in with pt and confirmed her plan for [facility]/[place]. Have spoken with Raina. She is planning to pick pt up in the facility van at between 1445 and 1500. Both she and her DNS are aware that the IV antibiotic will be at every [address] Trujillo's progress note of last evening and will fax the snf specific orders as soon as these are received. Confirmed: Medicare and [employer] payer. INPT admission status: as of 09/07. IMM#2: issues to pt. COVID -: as of 09/09: faxed as well as PASRR/completed yesterday [facility] [place]. P: expect d/c this afternoon to [facility] [place]. Will follow prn Will update [facility]ICES Alexandra now.
[2020-09-10 12:00] VITALS: BP 123/63; PULSE 81; RESP 16; TEMP 36.4; O2SAT 96
--- NOTE | 2020-09-10 12:05 | P.DS_ITS ---
History of Present Illness History of Present Illness Date Patient Seen: 09/10/20 Time Patient Seen: 12:05 Chief complaint: OPB Narrative: Patient's pain is mild. Denies fever or chills. No nausea or vomiting. Discharge Providers Provider Date of admission: 09/07/20 09:25 Discharge Date: 09/10/20 Primary care physician: Mel Arguello MD Consults: 09/07/20 17:25 Consult After Hours PICC Line RN Routine Comment: Consult to Discharge Planning Routine Comment: Consult to Physical Therapy Evaluate & Treat Comment: Physician Instructions: postop TKA protocol Consult to Respiratory Therapy Evaluate & Treat Comment: Physician Instructions: Evaluate and treat Discharge provider: Yariel Guy PA-C Summary Hospital Course Discharge Diagnosis: nfected left total knee Hospital Course: Revision left total knee with removal of infected left total knee pre prepping and draping and insertion left knee antibiotic spacer Temporary knee. Same procedure as scheduled: Yes Indications: This is an unfortunate 80-year-old female who had a left total knee arthroplasty was doing reasonably well but then became markedly inflamed recently and it was aspirated. It is growing a Staph lugdunensis. Surgeon: Camila Trujillo Patient Care Provider: Yariel Guy Anesthesia Type: General and Spinal Operative Notes Findings: Obvious gross infection with infection tracking down to the tibia and some softening of the tibia. Moderate medial-sided abscess cavity. Components removed without significant bone loss. Closure Type: primary Specimen(s): other (cultures) Prosthetic devices, grafts, tissues, transplants, or devices: Antibiotic spacer vancomycin powder, antibiotic coated polyethylene 13 mm size 3 legion, size 5 antibiotic coated legion femur Applied: drain(s) Estimated Blood Loss (mL): 50 Blood products transfused: none Tourniquet time (min): 116 Patient was admitted to the hospital for the above-mentioned procedure. Patient consented to the same. Patient taken to the operating room on September 07, 2020. Patient back in her room recovering well as in stable condition patient will need prison facility placement. She will be on Ancef 2 g IV every 8 hours. Follow-up [facility] in 2 weeks. Status at Discharge Cognitive/behavioral status at discharge: at baseline, oriented Functional status at discharge: uses cane/walker Overall status at discharge: patient is progressing back to baseline Time Spent with Patient Time spent: Less than 30 minutes Exam Vital Signs (past 8 hours): - 09/10/20 05:00 09/10/20 09:00 Temperature 99.1 F 98 F Pulse Rate 76 83 Respiratory Rate 18 17 Blood Pressure 131/68 120/60 Pulse Oximetry 95 94 Oxygen Delivery Method Room Air Oxygen Flow Rate 0 Narrative Exam Narrative: 80-year-old female resting comfortably in bed in no apparent distress. Knee immobilizer is on. Sandhya dressing is on and functioning. Dressing is clean, dry and intact. Motor functions intact distal left lower extremity. Sensation grossly intact to light touch distal left lower extremity. Objective Labs Result Diagrams: 09/10/20 05:15 09/07/20 16:39 Labs: Laboratory Results - last 24 hr 09/09/20 09/10/20 09/10/20 13:10 05:15 05:15 WBC 3.9 L RBC 2.62 L Hgb 7.9 L Hct 23.9 L MCV 91.3 MCH 30.3 MCHC 33.2 RDW 13.8 Plt Count 319 Neut % (Auto) 60.5 Lymph % (Auto) 19.8 L [place] % (Auto) 11.0 Eos % (Auto) 7.2 H Baso % (Auto) 1.5 Neut # (Auto) 2400 Lymph # (Auto) 800 L [place] # (Auto) 400 Eos # (Auto) 300 Baso # (Auto) 100 ESR C-Reactive Protein 7.9 H SARS-CoV-2 (PCR) Negative 09/10/20 05:15 WBC RBC Hgb Hct MCV MCH MCHC RDW Plt Count Neut % (Auto) Lymph % (Auto) [place] % (Auto) Eos % (Auto) Baso % (Auto) Neut # (Auto) Lymph # (Auto) [place] # (Auto) Eos # (Auto) Baso # (Auto) ESR 102 H C-Reactive Protein SARS-CoV-2 (PCR) [facility] Medical History Angiomyolipoma of right kidney Chronic cough Collagenous colitis Cyst of left breast (2006) Cyst of left kidney Edema GERD (gastroesophageal reflux disease) Hearing loss Hepatic cyst Hepatic hemangioma HTN (hypertension) Hypothyroid Impaired fasting glucose Pneumonia (2006) Scoliosis Surgical History History of arthroplasty of both shoulders History of arthroplasty of left knee (11/13/19) History of arthroplasty of right knee History of bilateral cataract extraction History of hysterectomy History of lumbar fusion (08/29/16) History of total left hip arthroplasty Hx of BSO (bilateral salpingo-oophorectomy) Hx of dilation and curettage Hx of repair of right rotator cuff S/P foot surgery, right Social History household members: significant other Smoking Status: Never smoker alcohol intake: current Discharge Assessment & Plan Assessment and Plan Assessment: Patient progressing as expected status post 1st stage of 2 stage exchange arthroplasty. Plan of Treatment: Discharge to prison facility. Patient may mobilize out of bed to chair and can be weight-bearing up to 100 lb left lower extremity in knee immobilizer. Okay for her to do some gentle tsvpo-jw-[id number] exercises as long as she is no nweightbearing. Patient will be on Ancef 2 g IV every 8 hours. Follow-up with Dr. Trujillo in 2 weeks. Discharge Plan Discharge Plan Patient Disposition: SNF Transfer to: [facility] Consult as needed: Dental, Mental health, Podiatry and Vision Provider Discharge Comment: Discharge to SNF. Ancef 2 grams IV every 8 hours x 3 weeks Discharge orders & Medications Prescriptions: New acetaminophen 325 mg Tablet 650 mg PO TID Qty: 60 RF: 0 aspirin 81 mg Tablet,Delayed Release (Dr/Ec) 81 mg PO BID Qty: 60 RF: 0 cefazolin in dextrose (iso-os) 2 gram/100 mL Piggyback 2 gm IV Q8H 21 Days RF: 0 docusate sodium [DOK] 100 mg Capsule 100 mg PO BID Qty: 30 RF: 0 polyethylene glycol 3350 17 gram Powder In Packet 17 g PO DAILY PRN (Reason: Constipation) Qty: 14 RF: 0 ibuprofen 400 mg Tablet 400 mg PO Q4HR Qty: 60 RF: 0 oxycodone 5 mg Tablet 5 mg PO Q3HR PRN (Reason: Pain, Moderate (4-6)) Qty: 60 RF: 0 Continued levothyroxine 50 MCG tablet 0.05 mg PO QAM Qty: 0 RF: 0 omeprazole 20 MG capsule,delayed release(DR/EC) 20 mg PO QDAY Qty: 0 RF: 0 estradiol 1 MG tablet 1 mg PO QDAY Qty: 0 RF: 0 omega 9-bcw-bbp-fish oil [Fish Oil] 1,000 MG capsule 1,000 mg PO QDAY Qty: 0 RF: 0 triamterene-hydrochlorothiazid 75 MG/50 MG tablet 1 tab PO QDAY Qty: 0 RF: 0 Discontinued naproxen 500 mg Tablet 500 mg PO BEDTIME PRN (Reason: Pain) RF: 0 aspirin 81 mg tablet,delayed release (DR/EC) 81 mg PO DAILY RF: 0 ibuprofen 400 mg tablet 800 mg PO BID RF: 0 Follow up/Referrals: Mel Arguello MD [Primary Care Provider] - Camila Trujillo MD [Physician] - (2 weeks) Discharge Health Status Health Concerns: 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 Ancef 2 g IV every 8 hours. Multidrug resistant organism: No MDRO Diet/Activity/Treatments Diet: Diet as Tolerated Activity: Walk as tolerated with knee immobilizer on. Partial weight-bearing up to 100 lb left leg. Use walker. Okay to do some very gentle range of motion exercises as long as she is nonweightbearing Cold/Heat Therapy: Apply ice to knee. Other treatments: Ancef 2 g IV every 8 hours, routine PICC line care. Skin/Wound/Dressing Care Report to your healthcare provider any signs of infection, such as:: chills, fever, night sweats, increased pain, unusual drainage and unusual redness Dressing: Leave dressing on. Special Rehabilitation Services Reason for rehabilitation: Post-operative therapy Rehab type: Physical therapy and Occupational therapy Restrictions to mobility: Weight-bearing left lower extremity up to 100 lb and knee immobilizer. Okay to do some very gentle range of motion exercises as long as she is nonweightbearing Visit Report/Discharge Packet Instructions: DI for Knee Replacement, How to Prevent Falls, DI for Prescription Opioid Use Stand Alone Forms: Surgery Discharge Discharge Data Primary Care Provider: Mel Arguello Quality VTE Deep Vein Thrombosis/Pulmonary Embolism Present on Admission: No
--- NOTE | 2020-09-10 16:04 | PC.NURSE ---
Transfer: Report called to Thelma, admitting nurse at facility. Reviewed hosp course. Pt's wound and wound care status/MELVIN. ADLS. Pt's concerns about her bowels. Reviewed PICC line, dressing change completed today. Questions answered.
== END 2020-09-10 15:30 | DRG 467 ==
LOC: OR 09:28 → AC 09:29
PROVIDERS: Physician Assistant; Admitting Provider Orthopaedic Surgery; PCP Internal Medicine; Referring Provider Orthopaedic Surgery; Visit Provider Orthopaedic Surgery
PROC: 0SRD0EZ Replacement of Left Knee Joint with Articulating Spacer, Open Approach (ICD-10-PCS; principal; 2020-09-07 11:30)
DX: T84.54XA Infection and inflammatory reaction due to internal left knee prosthesis, initial encounter (principal); M00.062 Staphylococcal arthritis, left knee; B95.7 Other staphylococcus as the cause of diseases classified elsewhere; M83.8 Other adult osteomalacia; E03.9 Hypothyroidism, unspecified; K21.9 Gastro-esophageal reflux disease without esophagitis
CPT/HCPCS: 36415; 36569; 73560; 80048; 85014; 85018; 85025; 85651; 86140; 87070; 87075; 87077; 87147; 87176; 87186; 87205; 87635; 97110; 97162; 97530; C1776; C9803; A9270; C9290; J0330; J0690; J1170; J1642; J2405; J2704

== ENCOUNTER → 2020-10-27 16:24 | Outpatient (CLI) | payer MEDICARE, SELFPAY ==
[2020-09-07 17:57] VITALS: BMI 36.7
[2020-10-27 17:35] LABS: Add Manual Diff / Slide Review NO; Basophils Absolute Auto 100 /uL (0-100); Basophils Percent Auto 1.3 % (0-2); Eosinophils Absolute Auto 200 /uL (0-450); Eosinophils Percent Auto 3.5 % (2-4); Hemoglobin 12.5 g/dL (12.0-16.0); Lymphocytes Absolute Auto 900 /uL (1100-4500); Lymphocytes Percent Auto 16.5 % (25-40); Mean Corpuscular HGB Conc 33.7 % (30-36); Mean Corpuscular Hemoglobin 31.3 PG (26-34); Mean Corpuscular Volume 92.8 fL (80-100); Monocytes Absolute Auto 400 /uL (0-900); Monocytes Percent Auto 7.6 % (3-14); Neutrophils Absolute Auto 3700 /uL (1500-7000); Neutrophils Percent Auto 71.1 % (50-75); Platelet Count 350 X10^3/uL (150-400); Red Blood Cell Count 3.99 X10^6/uL (4.0-5.2); Red Cell Distribution Width 14.2 % (11.6-14.8); White Blood Cell Count 5.3 X10^3/uL (4.5-11.0)
[2020-10-27 17:47] LABS: Alanine Aminotransferase 7 IU/L (<35); Albumin 4.1 g/dL (3.5-5.0); Albumin Globulin Ratio 1.4 (1.0-2.8); Alkaline Phosphatase 88 U/L (38-126); Aspartate Aminotransferase 22 IU/L (14-36); BUN Creatinine Ratio 18.2 (6-22); Bilirubin Total 0.4 mg/dL (0.2-1.3); Blood Urea Nitrogen 22 mg/dL (7-17); C-Reactive Protein Quant 0.5 mg/dL (<1.0); Calcium 9.4 mg/dL (8.4-10.2); Carbon Dioxide 25 mmol/L (22-32); Chloride 102 mmol/L (98-107); Estimated Glomerular Filt Rate 42.8 mL/min (>60); Glucose 95 mg/dL (80-110); HEMOLYSIS < 15 (0-50); Potassium 3.6 mmol/L (3.4-5.1); Sodium 137 mmol/L (137-145); Total Protein 7.1 g/dL (6.3-8.2)
[2020-10-27 18:12] LABS: Erythrocyte Sedimentation Rate 16 MM/HR (0-20)
== END ==
PROVIDERS: PCP Internal Medicine; Referring Provider Orthopaedic Surgery; Visit Provider Orthopaedic Surgery
DX: Z01.812 Encounter for preprocedural laboratory examination (principal); I10 Essential (primary) hypertension
CPT/HCPCS: 36415; 80053; 85025; 85651; 86140

== ENCOUNTER → 2020-11-10 09:18 | Outpatient (CLI) | payer MEDICARE, SELFPAY ==
[2020-09-07 17:57] VITALS: BMI 36.7
[2020-11-10 11:54] LABS: COVID19 -Nasal RAPID Negative (Negative)
== END ==
PROVIDERS: PCP Internal Medicine; Visit Provider Student in an Organized Health Care Education/Training Program
DX: Z01.812 Encounter for preprocedural laboratory examination (principal); Z20.822 Contact with and (suspected) exposure to COVID-19
CPT/HCPCS: 87635; C9803

== ENCOUNTER 2020-11-11 10:00 | Inpatient (IN) | payer MEDICARE, SELFPAY ==
[2020-09-07 17:57] VITALS: BMI 36.7
[2020-11-08 12:13] VITALS: BMI 36.7
[2020-11-11] VITALS (17 sets, daily range): BP systolic 101–147; BP diastolic 47–83; PULSE 69–88; RESP 10–16; TEMP 35.8–37.3; O2SAT 92–100; BMI 36.7
[2020-11-11] MEDS: ACETAMINOPHEN 325 MG TABLET 975 MG PO (11:02)
[2020-11-11] MEDS: LACTATED RINGERS 1,000 ML 42 ML IV ×3 (11:02→17:46)
[2020-11-11] MEDS: GABAPENTIN 300 MG CAPSULE PO (11:02)
[2020-11-11] MEDS: CELECOXIB 200 MG CAPSULE 400 MG PO (11:02)
--- NOTE | 2020-11-11 11:02 | P.OP_ITS ---
Operative Date/Time/Diagnoses Date of procedure: 11/11/20 Time of procedure: 12:58 Pre-op diagnosis: Septic left total knee arthroplasty with placement of previous antibiotic spacer Post-op diagnosis: same Procedure & Clinicians Procedure: Revision left total knee arthroplasty Same procedure as scheduled: Yes Indications: The patient has had a history of a left total knee arthroplasty. Many months later she developed worsening pain and had findings suggestive of a periprosthetic infection. She is previously status post a removal of her left total knee and placement of an antibiotic spacer. She has completed a 6 week course of IV antibiotics and has negative cultures off of IV antibiotics. Her inflammatory parameters have normalized. She now would like to proceed with a revision left Total knee replacement. The risks, benefits and alternatives to surgery were discussed with the patient prior to proceeding. Risks discussed included, but were not limited to, failure to relieve pain, stiffness, infection, nerve damage, deep venous thrombosis, pulmonary embolism, stroke, coma, heart attack, permanent paralysis and , as well as the potential need for eventual revision of the prosthetic. Surgeon: Camila Trujillo Department Manager: Sunday Chance Anesthesia Type: General and Peripheral nerve block Operative Notes Findings: Significant stiffness in the left knee, no evidence of active infection, knee replacement removed without difficulty and new total knee arthroplasty placed. Closure Type: primary Specimen(s): other (Multiple cultures and a single specimen for PCR) Prosthetic devices, grafts, tissues, transplants, or devices: Trujillo [employer] Nephew size 5 legion femoral component, distal femoral augments medial and lateral 5 mm, size 10 by 160 cemented femoral stem on the femoral component, +4 offset, size 15 constrained poly, 32 x 7 and 0.5 mm patella, 2 mm tibial offset home day care provider for a size 3 tibia with the straight 10 x 160 tibial stem Applied: drain(s) Estimated Blood Loss (mL): 300 Tourniquet time (min): 122 Procedure in detail: The patient was seen in the pre-operative area, where the patient identified the left knee as the operative site and this was marked with my initials. The patient received pre-operative antibiotics, and was taken to the operating room and placed on the operative table in the supine position. After satisfactory anesthesia, a multimedia designer out was performed. The left leg was encircled with a tourniquet about the proximal thigh, and the leg was prepared from the toes to the tourniquet with ChloroPrep in the usual fashion and draped through sterile drapes. The leg was elevated and exsanguinated with Eschmark bandage and the tourniquet inflated to [250] mmHg pressure. The knee was approached through an approximately 28 cm incision centered over the patella and carried into the knee through a medial parapatellar arthrotomy. The soft tip few flaps were meticulously mobilized and developed. Went down through the fascia to the level of the quad mechanism and then meticulously stripped the soft tissues away from the quad mechanism in order to allow adequate mobilization of the knee. She had significant adhesions noted p reoperatively and I carefully manipulated her knee in order to get her to 90? of flexion. Release the adhesions could felt to be released beginning at about 30? of flexion. Once the subcutaneous tissues and skin had been adequately mobilized a medial parapatellar arthrotomy was performed soft tissues were carefully stripped off of the mid medial proximal tibia. The patella was carefully mobilized. There was fairly dense scar. There was a fairly mild effusion. Synovium was taken for synovial biopsy and sent for culture and sensitivity. Dissection was then carried down to the components. A saw was used to free the polyethylene component from the cement mantle. It was fairly easy to free and was removed without difficulty. The knee was mobilized and then left femur was meticulously freed from the underlying bone. It was removed with essentially no bone loss. There was no bone loss medially no significant bone loss anterior posteriorly and just a minimal amount noted laterally. Any residual cement was carefully removed from the distal femur. The cement was then meticulously removed from the tibia. Multiple cultures were sent including femoral cultures tibial cultures intramedullary cultures and the synovial cultures. A single PCR specimen was sent. She was still fairly tight laterally. Soft tissue was carefully mobilized around the patella the patella was measured with a caliper. A minimal skive cut of bone was resected from the patella and the patellar height was reconstituted with up an appropriate sized patellar component. A cover was then placed on the patella. The tibia was reamed up to a size 12 there was pretty good fit distally with a size 12. A 1 mm cleanup cut was performed on the proximal tibia. Meticulously checked around the tibia fracture there is no residual cement or bone spurs. The previously placed antibiotic bone cement spacer pieces were removed without difficulty. There did not appear to be excessive softening or abnormalities in the tibial canal. Tibia was sized at a size 3. I checked the home day care provider and decided to put a 2 mm offset home day care provider. The tibia was prepared. The rotation was assessed. A trial tibia was placed with a stem and a 2 mm home day care provider after finishing prepping the tibia. Hemostasis was achieved especially posteriorly. Additional local was injected into the posterior capsule. Attention was directed to the femur. The femur was reamed up to a size 11 and 6 degree intramedullary guide was placed. It was checked for a cleanup cut it was noted that would of only resected the minimal amount of tibia and it was felt that we were better to proceed with the 5 mm resection off of both the medial and lateral distal femur. Block was pinned to the femur checking rotation and overall alignment. Size 5 appeared to per the femur did not look like we needed an additional posterior augments. Chamfer and anterior and posterior cuts were checked. 4 mm posterior offset was selected. The femoral component trial was placed and the notch was finished. The anterior, posterior and chamfer cuts were then made. The posterior osteophytes and soft tissues were then removed. The posterior capsule was injected with part of a mixture of 60 ml 0.25% Marcaine mixed with 20 ml Exparel for post operative pain control. The remainder of this mixture was injected into the capsule and subcutaneous tissues during cement curing. The tibial and femoral components were then placed and the knee placed through a range of motion. Range of motion was [0- 120], with good stability throughout the range. The patella appeared to track adequately I did check and meticulously perform an additional lateral release. Patient had good stability with a size 15 but I opted for a more constrained polyethylene. There was a tiny bit of medial laxity. The trials were then removed. The tourniquet was deflated at 2 hours and then reinflated during cementing. The components were constructed on the back table. The bone was prepared with pulsatile lavage, and dried with a sponge. Cement was applied and the final prosthetics placed. Excess cement was removed during and after cement curing. A brief Betadine soak was performed. After confirming there was no extruded cement posteriorly, the final tibial insert was placed. The knee was copiously irrigated and the tourniquet deflated. Hemostasis was obtained with the [Aquamantys system]. A drain was placed and brought out superolaterally. The capsule was closed with interrupted nonabsorbable suture. The subcutaneous layer was closed with barbed sutures, and the skin with a running 3-0 V-Lock suture and skin jose manuel. An ana dressing was applied and the patient was taken to recovery having tolerated the procedure well. Complications: none Post-operative Condition: stable Disposition: Acute Care Plan for aftercare: The patient will be maintained on a standard total knee replacement protocol with weight bearing as tolerated. The patient will receive IV antibiotics including Ancef while she is an inpatient and then long-term 3 months of suppressive antibiotics to possible lifetime suppressive antibiotics. Aspirin and sequential compression devices for DVT prophylaxis. The patient will be discharged home when safe for the home environment.
--- NOTE | 2020-11-11 11:02 | PM.PREOP ---
Pre-operative Note COVID-19 COVID-19 status: Negative Interval Note History & Physical reviewed/Exam performed by Physician: Yes Changes to H&P: No
--- NOTE | 2020-11-11 12:00 | DI.RAD.S_ITS ---
PROCEDURE: XR KNEE LT 1TO2V INDICATIONS: LEFT TOTAL REVISION TECHNIQUE: 2 view(s) of the knee acquired. COMPARISON: [facility], CR, XR KNEE LT 1TO2V, 09/07/2020, 16:05. FINDINGS: Bones: Patient is status post knee joint arthroplasty revision. Hardware components are in expected positions. Visualized bony structures are intact. Soft tissues: Overlying postoperative changes are noted. IMPRESSION: Expected postsurgical change for revision of left knee arthroplasty. Dictated by: Georgina Mares MD, PhD on 11/12/2020 at 13:52 Approved by: Georgina Mares MD, PhD on 11/12/2020 at 13:52
[2020-11-11] MEDS: VANCOMYCIN 1,000 MG/200 ML PIGGYBACK 200 MG IV ×2 (13:29→13:30)
--- NOTE | 2020-11-11 13:50 | SUR.PREOP ---
PT MADE AWARE OF DELAY. RESTS QUIETLY. NO COMPLAINTS VOICED. AWAITS ANESTHESIA.
--- NOTE | 2020-11-11 14:49 | P.PCN_ITS ---
Procedures Date/Time Date of procedure: 11/11/20 Time of procedure: 14:22 Nerve Block Time out performed: Yes Local anesthetic used: bupivacaine 0.25% Location of anesthetic used: left thigh Amount of anesthesia used (mL): 30 Nerve blocks: femoral (adductor canal) Procedure successful: Yes Patient tolerated procedure: well and no complications Complications: none Additional comments: Adductor canal nerve block performed for post-op pain control at surgeon request. Patient was positioned with IV, O2, monitors and rescue meds available. Prepped and timeout performed. Target identified with continuous ultrasound guidance. 30 mL of bupivicaine 0.25% was injected perineurally with intermittent aspiration and injection. No blood, no paresth esias, no acute complications.
[2020-11-11] MEDS: CEFAZOLIN 1 GM VIAL 2 GM IV ×3 (15:11→22:08)
[2020-11-11] MEDS: TRANEXAMIC ACID 1,000 MG VIAL 1000 MG INJ ×2 (15:12→17:28)
[2020-11-11] MEDS: EPINEPHrine 1 MG/ML 0.15 MG INJ (15:13)
[2020-11-11] MEDS: BUPIVACAINE 0.25% (PF) VIAL 30 ML INJ (15:13)
[2020-11-11] MEDS: BUPIVACAINE LIPOSOME 266 MG/20 ML VIAL INJ (15:14)
--- NOTE | 2020-11-11 20:05 | PC.NURSE ---
Addendum entered by Sidra Mata R.N. 11/11/20 23:31: 2100: Left knee hemovac drain is clamped, but connections are not connected. Ends were cleansed multiple times with alcohol swab and friction and reconnected drain tubing from left knee to hemovac disk. Taped connections and unclamped as ordered. Dressing to hemovac site underneath jose l wrap is saturated with blood, but contained within jose l wrap. Pt desats to 88% on room air with sleep so 02 2L per nc replaced. Offered to turn pt to side and pt declined. Removed ice to left knee as has been present since arrival to floor. Pt given oxycodone to manage pain as per emar with good results. Original Note: Pt to room 210 from PACU awake, alert, conversant. Denies pain to LLE, but admits to ability to feel this copywriter's touch. BL calf scd's placed. Pt's lower extremities are equally warm to touch and tanned in color. Castro to gravity and hemovac clamped to be unclamped @ 2100 per PRODUCT COMMUNICATIONS MANAGERBecky. Pt's spouse, Ye, arrives @ bedside and calmly sits with pt. MELVIN dressings intact to LLE with ice packs x 2 to left knee.
[2020-11-11] MEDS: ACETAMINOPHEN 325 MG TABLET 650 MG PO (20:54)
[2020-11-11] MEDS: ASPIRIN EC 81 MG TABLET PO (20:54)
[2020-11-11] MEDS: DOCUSATE 100 MG CAPSULE PO (20:55)
[2020-11-11] MEDS: LACTATED RINGERS 1,000 ML 100 ML IV (20:55)
[2020-11-11] MEDS: IBUPROFEN 400 MG TABLET PO (20:55)
[2020-11-11] MEDS: OXYCODONE IR 5 MG TABLET PO (22:17)
[2020-11-12] VITALS (7 sets, daily range): BP systolic 103–136; BP diastolic 43–72; PULSE 67–75; RESP 14–18; TEMP 35.7–36.3; O2SAT 92–98
--- NOTE | 2020-11-12 00:14 | PC.NURSE ---
Patient is alert and oriented. Breath sounds CTA with sat of 98% on oxygen at 2L/min per NC as per MD order. HRR. Denies nausea. BT present but denies flatus as yet. Indwelling catheter is patent; urine is clear, yellow. Is able to move herself in bed. Gait not assessed as has not yet been out of bed following surgery. MELVIN dressings to left knee intact and functioning with jose l wrap covering; dry drainage noted on anterior upper jose l wrap. Hemovac dressing is saturated but does not appear to be leaking; hemovac is intact and compressed. States pain is 4/10 and achy; had Oxycodone at 2217 and is aware she can take medication q3h and will also be receiving scheduled Ibuprofen. Ice packs applied to knee. Has chronic bilateral LE edema. Wearing bilateral calf SCD's. Good pedal pulses, warm to touch and denies any numbness/tingling. Fall risk score is moderate; bed alarm is activated.
[2020-11-12] MEDS: IBUPROFEN 400 MG TABLET PO ×6 (01:03→21:29)
[2020-11-12] MEDS: OXYCODONE IR 5 MG TABLET PO ×4 (01:03→15:21)
[2020-11-12] MEDS: CEFAZOLIN 1 GM VIAL 2 GM IV ×3 (05:36→21:30)
[2020-11-12 06:15] LABS: Hematocrit 30.2 % (36-46); Hemoglobin 10.2 g/dL (12.0-16.0)
[2020-11-12] MEDS: PANTOPRAZOLE DR 20 MG TABLET PO (06:29)
[2020-11-12] MEDS: LACTATED RINGERS 1,000 ML 100 ML IV (06:30)
[2020-11-12] MEDS: LEVOTHYROXINE 50 MCG TABLET PO (06:30)
--- NOTE | 2020-11-12 07:53 | P.PN_ITS ---
Subjective Subjective Date Patient Seen: 11/12/20 Time Patient Seen: 07:53 Interval history: Patient states she is doing well overall and is in mild discomfort at rest. At this time she denies fever, chills, nausea, chest pain, or shortness of breath. Patient reports good sensation throughout the bilateral lower extremities. Exam Vital Signs (past 8 hours): - 11/12/20 05:31 Temperature 96.3 F L Pulse Rate 70 Respiratory Rate 14 Blood Pressure 136/72 Pulse Oximetry 98 Oxygen Delivery Method Nasal Cannula Oxygen Flow Rate 2 Narrative Exam Narrative: Pleasant 80-year-old female postop day 1 status post revision left total knee arthroplasty. Patient is resting comfortably in bed, is in no acute distress, is alert and oriented x3. Skin is warm and dry, and the skin surrounding the incision site is free of erythema, warmth, induration, or discharge. Sandhya dressing over the incision site is clean, dry, intact, and functioning. Dressing over the wound drain is saturated in bright red blood. Good sensation appreciated throughout the bilateral lower extremities to light touch. Ankle dorsiflexion, plantar flexion, eversion, inversion performed bilaterally without difficulty or discomfort. 2+ pitting edema noted on in the left lower extremity or beginning at the mid leg and extending distally to the foot. DP pulses palpated bilaterally. Calves are soft and nontender, negative Homans sign. No other signs of DVT appreciated. Const General: cooperative, healthy appearing and comfortable Resp Effort & Inspection: normal respiratory effort and able to speak in complete sentences Skin General: no rashes or lesions noted Objective Labs Result Diagrams: 11/12/20 05:42 Labs: Laboratory Results - last 24 hr 11/11/20 11/12/20 10:27 05:42 Hgb 10.2 L Hct 30.2 L Blood Type B Negative Antibody Screen Negative PFSH Medical History Angiomyolipoma of right kidney Chronic cough Collagenous colitis Cyst of left breast (2006) Cyst of left kidney Edema GERD (gastroesophageal reflux disease) Hearing loss Hepatic cyst Hepatic hemangioma History of revision of total replacement of left knee joint (09/04/20) HTN (hypertension) Hypothyroid Impaired fasting glucose Pneumonia (2006) Scoliosis Surgical History History of arthroplasty of both shoulders History of arthroplasty of left knee (11/13/19) History of arthroplasty of right knee History of bilateral cataract extraction History of hysterectomy History of lumbar fusion (08/29/16) History of total left hip arthroplasty Hx of BSO (bilateral salpingo-oophorectomy) Hx of dilation and curettage Hx of repair of right rotator cuff S/P foot surgery, right Social History household members: spouse Smoking Status: Never smoker alcohol intake: current Assessment & Plan Post-op Postoperative Procedures: Procedures Operation Date: 11/11/20 12:00 Actual Procedure Side Surgeon p Total Knee Arthroplasty Revision w/removal of spacer Left Camila Trujillo MD Postoperative day: 1 Postoperative status: doing well Postoperative plan: ambulate Postoperative plan narrative: Patient is to work on ambulation with the assi stance of a front wheeled walker physical therapy. She is to remain weight- bearing as tolerated, standard total hip replacement protocol. Patient is currently receiving IV Ancef while final cultures are pending. Plan for patient to be on long-term IV antibiotics lasting anywhere from 3 months to possible lifetime of suppressive antibiotic therapy. Current pain management regimen is to be continued as it is adequately controlled the patient's pain level. Aspirin 81 mg twice daily is to be continued for DVT prophylaxis. Quality VTE Deep Vein Thrombosis/Pulmonary Embolism Present on Admission: No
[2020-11-12] MEDS: ACETAMINOPHEN 325 MG TABLET 650 MG PO ×3 (09:26→21:28)
[2020-11-12] MEDS: TRIAMTERENE/HCTZ 37.5/25 CAPSULE 1 CAP PO (09:26)
[2020-11-12] MEDS: DOCUSATE 100 MG CAPSULE PO ×2 (09:27→21:29)
[2020-11-12] MEDS: FISH OIL 1,000 MG CAPSULE 1000 MG PO (09:27)
[2020-11-12] MEDS: ASPIRIN EC 81 MG TABLET PO ×2 (09:27→21:29)
[2020-11-12] MEDS: estradioL 1 MG TABLET PO (09:27)
--- NOTE | 2020-11-12 10:15 | PT.IIE ---
Current Diagnoses Infection and inflammatory reaction due to other internal joint prosthesis, initial encounter (11/11/20) Surgery Performed Operation Date: 11/11/20 12:00 Actual Procedures p Total Knee Arthroplasty Revision w/removal of spacer(Left) - Camila Trujillo MD Medical History (Last Reviewed 11/12/20 @ 07:55 by Sunday Chance PA-C) Angiomyolipoma of right kidney Chronic cough Collagenous colitis Cyst of left breast (2006) Cyst of left kidney Edema GERD (gastroesophageal reflux disease) Hearing loss Hepatic cyst Hepatic hemangioma History of revision of total replacement of left knee joint (09/04/20) HTN (hypertension) Hypothyroid Impaired fasting glucose Pneumonia (2006) Scoliosis Physical Therapy Inpatient Evaluation/Re-Eval M1 PT/OT-IP Prior Functional Status Start: 11/12/20 12:38 Freq: NEEDED Status: Active Protocol: Document 11/12/20 10:15 AB (Rec: 11/12/20 12:59 AB [id number]) Medical Review Prior Functional Status Medical History Reviewed Yes Communication able to make needs known Mobility and Gait pt stated that she is modified independent with mobility using FWW at home, uses W/C for long distance ambulation due to NWB on LLE after last hospitalization Prior Functional Level (Other details) pt with L TKA revision with spacer placement last august. pt went to SNF afterwards and pt stated that she went home after SNF and was able to be modified independent at home using FWW for transfers. pt now back and has L TKA revision 11/11. Social History Household Members significant other Living Arrangements House Number of Floors (Floors) One Floor Number of Stairs To Enter/Railing? no steps to enter Home Environment Standard Height Toilet,Walk in Shower Home Equipment Front Wheel Walker,Four Wheel Walker,Straight Cane,Shower Seat without Backrest,Hand Held Shower,Grab Bars Near Toilet,Grab Bars In Shower Additional Social History Comment has an adjustable bed M2 PT-IP Current Condition Start: 11/12/20 12:38 Freq: NEEDED Status: Active Protocol: Document 11/12/20 10:15 AB (Rec: 11/12/20 12:59 AB [id number]) Physical Therapy Current Condition Current Condition Evaluation Date 11/12/20 Treatment Diagnosis s/p L TKA revision; difficulty in walking Onset Date 11/11/20 Weight Bearing Status Weight Bearing Status Weight Bear as Tolerated Allowed Weight Bearing Amount (enter % LLE WBAT or #) (%) M3 PT-IP Subjective Start: 11/12/20 12:38 Freq: NEEDED Status: Active Protocol: Document 11/12/20 10:15 AB (Rec: 11/12/20 12:59 AB [id number]) Subjective Physical Therapy Visit Type Type Initial Evaluation Visit Start Time 10:15 Visit Stop Time 10:56 Total Visit Minutes 41 Number of VOICE OVER ANNOUNCER Visits 0 Physical Therapy Visit Comments Patient Comments pt is agreeable to do PT; Therapy Pain Assessment Pain When Pain Assessed At Rest Pain Present Pain Present Pain Reported Location left knee Intensity 4 Scale Used Numeric (0 - 10) Pain Management Techniques Apply Cold,Modification of Treatment,Re-positioning, Timing of Activity with Medications M4 PT-IP Mobility and Gait Start: 11/12/20 12:38 Freq: NEEDED Status: Active Protocol: Document 11/12/20 10:15 AB (Rec: 11/12/20 12:59 AB [email or web address]) PT-Bed Mobility Assessment Supine to Sit Supine to Sit Standby Assistance,Head of Bed Elevated PT-Transfer Assessment Sit to and From Stand Sit to and from Stand Moderate Assistance,1 Person Assistance,Use of Upper Extremities Equipment Transfer Assistive Device Gait Belt,Front Wheeled Walker Orthotic/Prosthetic Devices or Brace: No Transfers Transfer Destination Chair Transfer Technique Stand Step Pivot Transfer Ability Level of Assist Moderate Assistance,1 Person Assistance,Use of Upper Extremities Comments Mobility Comments pt supine in bed. attempted supine to sit and unable to complete. educated pt on techniques and provided step by step cues and completed supine to sit SBA. pt tends to keep L knee in extension and guarded in moving LLE. pt had a previous L TKA revision with spacer placement and LKnee has been on a knee immobilizer since september 07 and has been TTWB/NWB on LLE since then as well. educated pt on precautions and weight bearing status of LLE. pt stated that she is just afraid to move. pt completed sit to stand mod A and cues. pt tends to not put weight on LLE . pt's hemovac site is leaking. informed nurse. instructed pt to sit back down . PT educated and demonstrated WBAT, quads activation, use of FWW and safety techniques with pt. pt instructed to stand again and completed mod A and cues. cued for upright posture and weight bearing on LLE. pt completed step transfer to chair mod A and cues using FWW . positioned pt on chair. call light and table placed within reach. Nurse in room to work on hemovac. ambulation not conducted due to hemovac sit leaking and will attempt this afternoon and pt agreed. PT-Balance Assessment Sitting Balance and Reactions Static Sitting Balance Ability Good Dynamic Sitting Balance Ability Good Standing Balance and Reactions Static Standing Balance Ability Fair Dynamic Standing Balance Ability Fair Device Used FWW M5 PT-IP Objective Assessments Start: 11/12/20 12:38 Freq: NEEDED Status: Active Protocol: Document 11/12/20 10:15 AB (Rec: 11/12/20 12:59 AB [id number]) Orientation Orientation/Cognition Level of Alertness Alert Orientation Name,Place,Situation Language Function Ability Hard of Hearing Safety Awareness Decreased Safety Awareness Memory Description Short Term Impaired Gross Range of Motion Lower Extremity ROM Assessment Left Impaired Impairments L knee flexion:~ 20 deg Strength Lower Extremity Strength Assessment Left Impaired Hip 4-/5 Knee 3-/5 Muscle Tone Muscle Tone WNL Yes M6 PT-IP Treatment Start: 11/12/20 12:38 Freq: NEEDED Status: Active Protocol: Document 11/12/20 10:15 AB (Rec: 11/12/20 12:59 AB [id number]) Physical Therapy Treatment Exercises Exercises Heel Slides,Short Arc Quads Education Education Provided Precautions,Weight Bearing Status,Post-Op Packet,Safety M7 PT-IP Assessment and Plan Start: 11/12/20 12:38 Freq: NEEDED Status: Active Protocol: Document 11/12/20 10:15 AB (Rec: 11/12/20 12:59 AB [id number]) PT Summary Assessment and Plan Potential Rehabilitation Potential Good Status of Condition at Evaluation Evolving Summary Impairments Pain,ROM,Strength,Balance, Coordination,Sensation,Tone, Cognition,Bed Mobility, Transfers,Gait,Activity Tolerance Assessment Summary pt requiring mod A with transfers using FWW. pt can get anxious easily and requires cues with all tasks. will continue to assess progress. pt stated that she is hoping to go home from here . will assess pt's progress. will conduct caregiver training when appropriate. Goals Bed Mobility Goal Independent Transfer Goal Independent,Front Wheeled Walker Gait Goal Independent,Front Wheel Walker Gait Distance 100 Days to Meet Goals 10 Frequency of Treatment Frequency Of Treatment Twice a Day Treatment Plan Physical Therapy Treatment Plan Bed Mobility Training,Transfer Training,Gait Training, Therapeutic Exercise,Balance Retraining,Post Op Education, Discharge Planning,Hot or Cold Pack,Neuromuscular Re-ed, Coordination Retraining,Manual Therapy Precautions Other Precautions LLE WBAT Recommendations To Nursing Amount of Assist Needed 1 Person Assist Discharge Recommendations PT Discharge Recommendations Home with / Assist Available,Home Health Transportation Needs at Discharge Private Vehicle,Wheelchair/ Cabulance
--- NOTE | 2020-11-12 10:37 | PC.NURSE ---
Addendum entered by Reanna Chin R.N. 11/12/20 13:33: Penny catheter removed. Patient tolerated. Brief on. Addendum entered by Reanna Chin R.N. 11/12/20 12:08: Patient's BP denies s/s of being hypotensive, I had d/c'd fluids in the MAR since pt was taking PO fluids, instead I will let second bag finish at 100cc/hr, unable to edit MAR but will place remaining IV intake in I&O's. Patient was up with PT but did not ambulate far. Will hold d/c'ing penny until this afternoon's PT session to see if patient is able to ambulate appropriately. Patient has call light in reach. Addendum entered by Reanna Chin R.N. 11/12/20 11:05: Patient on RA, 98%. Does not use O2 at home. Denies further needs. Addendum entered by Reanna Chin R.N. 11/12/20 11:04: Patient up to chair after working with PT. HV dsg changed. Patient reports pain 3/10 post activity. Call light in reach. Original Note: Patient A/O x 3. Reports pain in LLE at 5/10. Medicated with Oxy 5mg. MELVIN dressing x 2 intact, strike-through sanguineous drainage on distal aspect. LLE slightly more edematous than RLE, CMS intact. Denies numbness or tingling. Hemovac intact, compressed, HV dsg is saturated. Penny draining, hanging bedside. LR @ 100cc/hr. SCD's on bilaterally. Patient denies BM at this time. BT active x 4. Call light in reach. Denies further needs. 1043 PT in working with patient at this time.
--- NOTE | 2020-11-12 12:53 | CM.DANOTE ---
Discharge Planning/Care Management DCP: assessment: case received, EMR reviewed and met with pt. Introduced self and role. Pt is an 80 year old female who admitted yesterday for a revision of L TKA following a 6 week course of IV antibiotics for a post op joint infection. She went to [facility] in August and returned home after this treatment. She states that Dr. Trujillo will be back in to see her later today and that Dr. Trujillo has told her that she would be able to d/c to home setting and would need ad terminal makeup operator (3 months to perhaps lifetime) supressive antibiotic therapy. She said Dr. Trujillo make it clear that these antibiotics would be oral, not IV). She also said Dr. Trujillo had been conferring right along with ID Dr. Hayden. PT is ordered. P[facility] Medicare [facility] Admission status: INPT: confirme by UR ULICES Stein Pt makes it clear that her preferred plan is home and says Ye is able to help her. She understands that the d/c planning team will be following to assist with d/c issues and options as these arise. She does know that the most recent information has on [facility] is that they are not accepting admissions/at capacity. CRISTELA Jeff agrees to check on an update from them today. CM Discharge Assessment Start: 11/12/20 12:51 Freq: Status: Active Protocol: Document 11/12/20 12:51 ITV (Rec: 11/12/20 12:52 ITV [id number]) Discharge Planning Assessment Advance Directives? Yes Advance Directives on File Yes History Provided By Patient,Medical Record Prior Living Arrangements House Household Members spouse Comment partner: Ye Campossalud Is patient alert and oriented? Yes Review Status In Process Pre-Anesthesia Assessment Start: 11/08/20 12:13 Freq: Status: Complete Protocol: Document 11/08/20 12:13 CAB (Rec: 11/08/20 12:27 CAB [id number]) Pre-Anesthesia Assessment PAC Comment Unable to reach pt to schedule PAC phone assess. Pt is s/p left knee total revision r/t infection 09/07/20, chart review only Patient Information Reviewed Via Chart Review Diagnostic Results BMP/CMP,CBC Comment Labs @ [facility], COVID screen @[facility] Primary Care Provider Mel Arguello Seen Specialist in Last 12 Months Yes Specialist Seen Orthopedist Primary Language Italian Preferred Language Italian Internet Systems Administrator Required No Height 162.56 cm Weight 97.069 kg Body Mass Index (BMI) 36.7 Hearing Ability Hard of Hearing Hx Anesthesia Reactions Yes: Difficulty w/SAB, prefers GA Hx Family Anesthesia Reaction No Hx Malignant Hyperthermia No Hx Blood Transfusions No Anesthesia Review Requested No Supervisor Soldering No alcohol intake current alcohol intake frequency holidays/special occasions only Smoking Status Never smoker Substance Use Type does not use Pain Present Pain Reported Musculoskeletal Symptoms Abnormal Gait,Difficulty Walking,Joint Pain,Joint Swelling Patient is completely paralyzed or No completely immobile Mental Status Oriented to own ability Does patient have JENKINS/SOB No: Chronic cough Hx Sleep Apnea No CPAP/BIPAP use not prescribed Currently Taking a Beta William No Can You Climb a Flight of Stairs Without Yes SOB Hx Chest Pain No Hx SOB No Hx Syncope or Dizziness No Anti-Coagulant Therapy No Cardiac Testing No Hx Pacemaker/ICD No Pacemaker Rep Required? No Urinary Catheter Present No Hx Urinary Self Catheterization No Diabetes No Patient No Lactating No Hx Drug Resistant Organism No Presence of External or Internal Medical Yes: Ant knees/shoulders, Left Devices XI, lumbar, eye lens Marital Status Unknown Lives With significant other Patient Discharge Plan Description Return Home Do You Have Any Spiritual Beliefs That No May Affect Your HC Choices? Do You Have Any Cultural Practices That No May Affect Your HC Choices? Emergency Contact Name Ye (S.O.) Emergency Contact Advance Directives? Yes Advance Directives on File Yes Power of Retort Load Expediter Yes Power of Retort Load Expediter Name Ye Nunez Power of Retort Load Expediter
--- NOTE | 2020-11-12 13:59 | CM.DPNOTE ---
Called Darren on Dougie at [facility] request to check for availability on 11/12/20 and left vm. Paris from Admissions called back and said that they cap off at 50 and are full at this time. And, to call back at the end of next week. Randee Canas CM Asst.
--- NOTE | 2020-11-12 14:32 | PT.IPTN ---
Current Diagnoses Infection and inflammatory reaction due to other internal joint prosthesis, initial encounter (11/11/20) Surgery Performed Operation Date: 11/11/20 12:00 Actual Procedures p Total Knee Arthroplasty Revision w/removal of spacer(Left) - Camila Trujillo MD Physical Therapy Treatment Note M2 PT-IP Current Condition Start: 11/12/20 12:38 Freq: NEEDED Status: Active Protocol: Document 11/12/20 10:15 AB (Rec: 11/12/20 12:59 AB [email or web address]) Physical Therapy Current Condition Current Condition Evaluation Date 11/12/20 Treatment Diagnosis s/p L TKA revision; difficulty in walking Onset Date 11/11/20 Weight Bearing Status Weight Bearing Status Weight Bear as Tolerated Allowed Weight Bearing Amount (enter % LLE WBAT or #) (%) M3 PT-IP Subjective Start: 11/12/20 12:38 Freq: NEEDED Status: Active Protocol: Document 11/12/20 14:03 CLB (Rec: 11/12/20 16:46 CLB [id number]) Subjective Physical Therapy Visit Type Type Treatment Note Visit Start Time 14:03 Visit Stop Time 14:32 Total Visit Minutes 29 Notes Ye present during tx. Number of BARREL WASHER MACHINE Visits 1 Physical Therapy Visit Comments Patient Comments pt is agreeable to do PT; Therapy Pain Assessment Pain When Pain Assessed At Rest Pain Present Pain Present Denied Pain M4 PT-IP Mobility and Gait Start: 11/12/20 12:38 Freq: NEEDED Status: Active Protocol: Document 11/12/20 14:03 CLB (Rec: 11/12/20 16:46 CLB [id number]) PT-Transfer Assessment Sit to and From Stand Sit to and from Stand Minimal Assistance,1 Person Assistance,Use of Upper Extremities Equipment Transfer Assistive Device Gait Belt,Front Wheeled Walker Orthotic/Prosthetic Devices or Brace: No Transfers Transfer Destination Chair Transfer Technique Stand Step Pivot Transfer Ability Level of Assist Minimal Assistance,1 Person Assistance,Use of Upper Extremities Comments Mobility Comments Pt performed HS in sitting on chair. Pt stood requiring Min A and performed wt shifting in standing. Pt ambulated ~40ft with Ye providing chair follow. Pt w/o complaint of pain during gait. Pt required cues for walker management and step sequencing . Pt returned to chair performing AP's, QS seated knee flx/ext. Left pt in chair with all needs within reach present. Gait Assessment Gait Gait Assistance Required: Minimum Assistance,1 Person Assist Distance (Feet) 40 Able to Maintain Weight Bearing Status Yes During Gait Assistive Devices Assistive Device Gait Belt,Front Wheeled Walker Orthotic/Prosthetic Devices or Brace: No Gait Deviations General Gait Pattern Antalgic,Decreased Stride Length,Decreased Feet Clearance,Step-to Gait Factors Limiting Gait Function Factors Limiting Gait Function Decreased Activity Tolerance, Decreased Strength,Difficulty Following Directions,Limited Range of Motion,Pain,Poor Balance,Poor Safety Awareness Comments Gait Comments Pt able to ambulate with cues for quad activation and cues for walker use. PT-Balance Assessment Sitting Balance and Reactions Static Sitting Balance Ability Good Dynamic Sitting Balance Ability Good Standing Balance and Reactions Static Standing Balance Ability Fair Dynamic Standing Balance Ability Fair Device Used FWW M5 PT-IP Objective Assessments Start: 11/12/20 12:38 Freq: NEEDED Status: Active Protocol: Document 11/12/20 10:15 AB (Rec: 11/12/20 12:59 AB [id number]) Orientation Orientation/Cognition Level of Alertness Alert Orientation Name,Place,Situation Language Function Ability Hard of Hearing Safety Awareness Decreased Safety Awareness Memory Description Short Term Impaired Gross Range of Motion Lower Extremity ROM Assessment Left Impaired Impairments L knee flexion:~ 20 deg Strength Lower Extremity Strength Assessment Left Impaired Hip 4-/5 Knee 3-/5 Muscle Tone Muscle Tone WNL Yes M6 PT-IP Treatment Start: 11/12/20 12:38 Freq: NEEDED Status: Active Protocol: Document 11/12/20 14:03 CLB (Rec: 11/12/20 16:46 CLB [id number]) Physical Therapy Treatment Exercises Exercises Ankle Pumps,Quad Sets,Heel Slides,Seated Knee Flexion/ Extension Education Education Provided Precautions,Weight Bearing Status,Post-Op Packet,Safety M7 PT-IP Assessment and Plan Start: 11/12/20 12:38 Freq: NEEDED Status: Active Protocol: Document 11/12/20 14:03 CLB (Rec: 11/12/20 16:46 CLB [id number]) PT Summary Assessment and Plan Potential Rehabilitation Potential Good Status of Condition at Evaluation Evolving Summary Impairments Pain,ROM,Strength,Balance, Coordination,Sensation,Tone, Cognition,Bed Mobility, Transfers,Gait,Activity Tolerance Assessment Summary Pt requiring Min A for sit- stand and Min A for gait. Pt fearful to put wt through LLE but with encouragement was able to ambulate ~40ft with cues for quad activation and walker/step sequencing . Pt would like to return home PT will continue to assess for progress and safety. CG training will be conducted with pt's before d/c. Goals Bed Mobility Goal Independent Transfer Goal Independent,Front Wheeled Walker Gait Goal Independent,Front Wheel Walker Gait Distance 100 Days to Meet Goals 10 Frequency of Treatment Frequency Of Treatment Twice a Day Treatment Plan Physical Therapy Treatment Plan Bed Mobility Training,Transfer Training,Gait Training, Therapeutic Exercise,Balance Retraining,Post Op Education, Discharge Planning,Hot or Cold Pack,Neuromuscular Re-ed, Coordination Retraining,Manual Therapy Precautions Other Precautions LLE WBAT Recommendations To Nursing Amount of Assist Needed 1 Person Assist Discharge Recommendations PT Discharge Recommendations Home with 04/12 Assist Available,Home Health Transportation Needs at Discharge Private Vehicle,Wheelchair/ Cabulance
[2020-11-12] MEDS: ONDANSETRON 4 MG ODT PO (16:30)
--- NOTE | 2020-11-12 16:36 | PC.NURSE ---
Addendum entered by Sidra Mata R.N. 11/12/20 23:17: Assist x 1 to bathroom to void and back to bed. Pt is able to move self into bed with minimal assistance. No change to dressings left knee. IV antibiotics infused as ordered. Addendum entered by Sidra Mata R.N. 11/12/20 17:54: Dr. Trujillo in to see patient. Original Note: Pt is awake, alert, conversant with ipad in lap sitting up in recliner. Rates left knee pain 3/10. Admits to queasy stomach and was given ODT zofran. Taking oral fluids well. Hemovac intact and compressed to left knee. Pt admits to full sensation to BL LE's. Pitting edema present to BL ankles and feet. Call light within pt's reach. Ice replaced to left knee x 2. MELVIN dressings intact with functional battery pack. I.S. use with encouragement to 1200.
[2020-11-12] MEDS: SODIUM CHLORIDE 0.9% FLUSH 10 ML IV (21:30)
[2020-11-13] MEDS: IBUPROFEN 400 MG TABLET PO ×6 (01:29→21:49)
[2020-11-13 06:00] VITALS: BP 124/65; PULSE 82; RESP 18; TEMP 37.1; O2SAT 93
[2020-11-13] MEDS: LEVOTHYROXINE 50 MCG TABLET PO (06:26)
[2020-11-13] MEDS: CEFAZOLIN 1 GM VIAL 2 GM IV ×3 (06:26→21:50)
[2020-11-13 08:00] VITALS: BP 134/63; PULSE 70; RESP 17; TEMP 36.5; O2SAT 94
[2020-11-13] MEDS: PANTOPRAZOLE DR 20 MG TABLET PO (09:41)
[2020-11-13] MEDS: FISH OIL 1,000 MG CAPSULE 1000 MG PO (09:43)
[2020-11-13] MEDS: SODIUM CHLORIDE 0.9% FLUSH 10 ML IV ×2 (09:43→21:50)
[2020-11-13] MEDS: ASPIRIN EC 81 MG TABLET PO ×2 (09:43→21:49)
[2020-11-13] MEDS: ACETAMINOPHEN 325 MG TABLET 650 MG PO ×3 (09:43→21:49)
[2020-11-13] MEDS: TRIAMTERENE/HCTZ 37.5/25 CAPSULE 1 CAP PO (09:43)
[2020-11-13] MEDS: DOCUSATE 100 MG CAPSULE PO ×2 (09:43→21:49)
[2020-11-13] MEDS: estradioL 1 MG TABLET PO (09:43)
--- NOTE | 2020-11-13 10:38 | P.PN_ITS ---
Subjective Subjective Interval history: Pain is [id number]. Denies fever or chills. No nausea or vomiting. Otherwise without complaints this morning. Exam Vital Signs (past 8 hours): - 11/13/20 06:00 11/13/20 08:00 Temperature 98.8 F 97.7 F Pulse Rate 82 70 Respiratory Rate 18 17 Blood Pressure 124/65 134/63 Pulse Oximetry 93 94 Oxygen Delivery Method Room Air Oxygen Flow Rate 0 Narrative Exam Narrative: 80-year-old female resting comfortably in bed in no apparent distress. Sandhya dressing is on and functioning. Hemovac in place with SS drainage. Left lower extremity is warm and dry. Motor functions intact bilate ral lower extremities. Sensation grossly intact to light touch bilateral lower extremities. Const General: cooperative and comfortable Nutritional Appearance: obese (BMI 36.7) Orientation: alert and oriented x3 Objective Labs Result Diagrams: 11/12/20 05:42 Labs: [facility] CLIA ID [id number] [address] [place] [id number] RUN DATE: 11/13/20 Specimen Inquiry PAGE 1 RUN TIME: 1039 Name: Jaimie Anne Age/Sex: 80/F Attend Dr: Camila Trujillo MD Unit#: [id number] : 1940ocation: AC 210-1 Re11/11/20 Disch: Status: ADM IN SPEC #: [id number] STARLA: 11/11/20 STATUS: RES REQ #: [id number] SPDESC: RECD: 11/11/[address]: Camila Trujillo MD SOURCE: Knee Lt ENTR: 11/11/[address]: Mel Arguello MD FAX TO: ORDERED: WOUND Cx and GS COMMENTS: Comment Tibial canal - C&S, gram stain Procedure Result Verified Site Gram Stain Final 11/11/202057 No Organism Seen No organisms seen White blood cells Few WBCs Aerobic Culture for wounds Preliminary 11/12/20845 No growth. 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/20) HTN (hypertension) Hypothyroid Impaired fasting glucose Pneumonia (2006) Scoliosis Surgical History History of arthroplasty of both shoulders History of arthroplasty of left knee (11/13/19) History of arthroplasty of right knee History of bilateral cataract extraction History of hysterectomy History of lumbar fusion (08/29/16) History of total left hip arthroplasty Hx of BSO (bilateral salpingo-oophorectomy) Hx of dilation and curettage Hx of repair of right rotator cuff S/P foot surgery, right Social History household members: spouse Smoking Status: Never smoker alcohol intake: current Assessment & Plan Post-op Postoperative Procedures: Procedures Operation Date: 11/11/20 12:00 Actual Procedure Side Surgeon p Total Knee Arthroplasty Revision w/removal of spacer Left Camila Trujillo MD Postoperative day: 2 Postoperative status: doing well Postoperative status narrative: Aerobic and anaerobic culture still pending. Preliminary results reviewed. Patient to receive 1 more day of IV antibiotics and discharge home tomorrow on Keflex t.i.d.. This will likely be lifetime per Dr. Trujillo. Sandhya dressing to remain on. Weightbearing as tolerated left lower extremity. Patient to be seen in 1 week at [facility] for wound check. Postoperative plan: routine post-op care Quality VTE Deep Vein Thrombosis/Pulmonary Embolism Present on Admission: No
--- NOTE | 2020-11-13 10:53 | PC.NURSE ---
Addendum entered by Reanna Chin R.N. 11/13/20 15:33: Patient c/o running nose, watery eyes. Dr. Peña contacted. Claritin 10mg PRN ordered. Original Note: Patient is up to restroom with PT. CMS intact LLE. MELVIN intact, drainage noted, minimal edema in BLE. PT denies pain, denies needing more than scheduled tylenol or ibuprofen. HV drain removed per orders. Patient tolerating diet. BT active but patient insists she will not have a BM here. Patient voiding. Patient on RA, 94%. Saline locked at this time. SCD's on when in bed.
--- NOTE | 2020-11-13 11:08 | PT.IPTN ---
Current Diagnoses Aftercare following explantation of knee joint prosthesis (11/11/20) Surgery Performed Operation Date: 11/11/20 12:00 Actual Procedures p Total Knee Arthroplasty Revision w/removal of spacer(Left) - Camila Trujillo MD Physical Therapy Treatment Note M2 PT-IP Current Condition Start: 11/12/20 12:38 Freq: NEEDED Status: Active Protocol: Document 11/12/20 10:15 AB (Rec: 11/12/20 12:59 AB [id number]) Physical Therapy Current Condition Current Condition Evaluation Date 11/12/20 Treatment Diagnosis s/p L TKA revision; difficulty in walking Onset Date 11/11/20 Weight Bearing Status Weight Bearing Status Weight Bear as Tolerated Allowed Weight Bearing Amount (enter % LLE WBAT or #) (%) M3 PT-IP Subjective Start: 11/12/20 12:38 Freq: NEEDED Status: Active Protocol: Document 11/13/20 10:36 CLB (Rec: 11/13/20 12:32 CLB [id number]) Subjective Physical Therapy Visit Type Type Treatment Note Visit Start Time 10:36 Visit Stop Time 11:08 Total Visit Minutes 32 Number of TOXICOLOGY SUPERVISOR Visits 2 Physical Therapy Visit Comments Patient Comments pt is agreeable to do PT Therapy Pain Assessment Pain When Pain Assessed During Mobility Pain Present Pain Present Pain Reported Location left knee Intensity 4 Scale Used Numeric (0 - 10) Pain Management Techniques Modification of Treatment,Re- positioning,Timing of Activity with Medications M4 PT-IP Mobility and Gait Start: 11/12/20 12:38 Freq: NEEDED Status: Active Protocol: Document 11/13/20 10:36 CLB (Rec: 11/13/20 12:32 CLB [id number]) PT-Bed Mobility Assessment Supine to Sit Supine to Sit Standby Assistance,1 Person Assistance Sit to Supine Sit to Supine Standby Assistance,1 Person Assistance PT-Transfer Assessment Sit to and From Stand Sit to and from Stand Standby Assistance,1 Person Assistance Equipment Transfer Assistive Device Gait Belt,Front Wheeled Walker Orthotic/Prosthetic Devices or Brace: No Transfers Transfer Destination Chair,Toilet Transfer Technique Stand Step Pivot Transfer Ability Level of Assist Standby Assistance,1 Person Assistance,Use of Upper Extremities Comments Mobility Comments Pt in bed performing ther ex. Pt then able to get to EOB SBA . Pt ambulated to BR SBA and able to sit with use of wall rail, akhil/doff brief and perform own pricare. Pt then ambulated in mancia with cues for heel/toe stepping. Pt ambulates with small step thru gait pattern with use of FWW/ SBA. Pt sat in chair SBA and performed HS in sitting on edge of chair. Pt left in chair with all needs within reach. Gait Assessment Gait Gait Assistance Required: Standby Assistance,1 Person Assist Distance (Feet) 100 Able to Maintain Weight Bearing Status Yes During Gait Assistive Devices Assistive Device Gait Belt,Front Wheeled Walker Orthotic/Prosthetic Devices or Brace: No Gait Deviations General Gait Pattern Antalgic,Decreased Stride Length,Decreased Feet Clearance Factors Limiting Gait Function Factors Limiting Gait Function Decreased Activity Tolerance, Decreased Strength,Difficulty Following Directions,Limited Range of Motion,Pain,Poor Balance Comments Gait Comments Pt ambulates w/FWW/SBA ~100ft with small step thru gait pattern. Stair Climbing Assessment Comments Stair Climbing Comments no stairs at home PT-Balance Assessment Sitting Balance and Reactions Static Sitting Balance Ability Good Dynamic Sitting Balance Ability Good Standing Balance and Reactions Static Standing Balance Ability Fair Dynamic Standing Balance Ability Fair Device Used FWW M5 PT-IP Objective Assessments Start: 11/12/20 12:38 Freq: NEEDED Status: Active Protocol: Document 11/12/20 10:15 AB (Rec: 11/12/20 12:59 AB [id number]) Orientation Orientation/Cognition Level of Alertness Alert Orientation Name,Place,Situation Language Function Ability Hard of Hearing Safety Awareness Decreased Safety Awareness Memory Description Short Term Impaired Gross Range of Motion Lower Extremity ROM Assessment Left Impaired Impairments L knee flexion:~ 20 deg Strength Lower Extremity Strength Assessment Left Impaired Hip 4-/5 Knee 3-/5 Muscle Tone Muscle Tone WNL Yes M6 PT-IP Treatment Start: 11/12/20 12:38 Freq: NEEDED Status: Active Protocol: Document 11/13/20 10:36 CLB (Rec: 11/13/20 12:32 CLB [id number]) Physical Therapy Treatment Exercises Exercises Ankle Pumps,Quad Sets,Heel Slides,Seated Knee Flexion/ Extension Education Education Provided Precautions,Weight Bearing Status,Post-Op Packet,Safety M7 PT-IP Assessment and Plan Start: 11/12/20 12:38 Freq: NEEDED Status: Active Protocol: Document 11/13/20 10:36 CLB (Rec: 11/13/20 12:32 CLB [id number]) PT Summary Assessment and Plan Potential Rehabilitation Potential Good Status of Condition at Evaluation Evolving Summary Impairments Pain,ROM,Strength,Balance, Coordination,Sensation,Tone, Cognition,Bed Mobility, Transfers,Gait,Activity Tolerance Progress Towards Goals Progressing Toward Goals Assessment Summary Pt requiring SBA during bed mobility, sit<>stand and gait. Pt with good pain control during mobility. Pt knee flx 0 -20 degrees. Pt seems able to d/c home with husbands assist when medically stable. Pt stated she does not want HH and has OP PT scheduled for Thursday 11/16. Goals Bed Mobility Goal Independent Transfer Goal Independent,Front Wheeled Walker Gait Goal Independent,Front Wheel Walker Gait Distance 100 Days to Meet Goals 10 Frequency of Treatment Frequency Of Treatment Twice a Day Treatment Plan Physical Therapy Treatment Plan Bed Mobility Training,Transfer Training,Gait Training, Therapeutic Exercise,Balance Retraining,Post Op Education, Discharge Planning,Hot or Cold Pack,Neuromuscular Re-ed, Coordination Retraining,Manual Therapy Precautions Other Precautions LLE WBAT Recommendations To Nursing Amount of Assist Needed 1 Person Assist Discharge Recommendations PT Discharge Recommendations Home with 04/12 Assist Available Transportation Needs at Discharge Private Vehicle
[2020-11-13 11:28] VITALS: BP 130/60; PULSE 68; RESP 16; TEMP 36.4; O2SAT 95
--- NOTE | 2020-11-13 15:25 | PT.IPTN ---
Current Diagnoses Aftercare following explantation of knee joint prosthesis (11/11/20) Surgery Performed Operation Date: 11/11/20 12:00 Actual Procedures p Total Knee Arthroplasty Revision w/removal of spacer(Left) - Camila Trujillo MD Physical Therapy Treatment Note M2 PT-IP Current Condition Start: 11/12/20 12:38 Freq: NEEDED Status: Active Protocol: Document 11/12/20 10:15 AB (Rec: 11/12/20 12:59 AB [id number]) Physical Therapy Current Condition Current Condition Evaluation Date 11/12/20 Treatment Diagnosis s/p L TKA revision; difficulty in walking Onset Date 11/11/20 Weight Bearing Status Weight Bearing Status Weight Bear as Tolerated Allowed Weight Bearing Amount (enter % LLE WBAT or #) (%) M3 PT-IP Subjective Start: 11/12/20 12:38 Freq: NEEDED Status: Active Protocol: Document 11/13/20 14:56 CLB (Rec: 11/13/20 15:46 CLB [id number]) Subjective Physical Therapy Visit Type Type Treatment Note Visit Start Time 14:56 Visit Stop Time 15:25 Total Visit Minutes 29 Number of ASSEMBLER CONVERTIBLE TOP Visits 3 Physical Therapy Visit Comments Patient Comments pt is agreeable to do PT After tx pt states she feels like she could go home tomorrow. Therapy Pain Assessment Pain When Pain Assessed During Mobility Pain Present Pain Present Pain Reported Location left knee Intensity 3 Scale Used Numeric (0 - 10) Pain Management Techniques Modification of Treatment,Re- positioning,Timing of Activity with Medications M4 PT-IP Mobility and Gait Start: 11/12/20 12:38 Freq: NEEDED Status: Active Protocol: Document 11/13/20 14:56 CLB (Rec: 11/13/20 15:46 CLB [id number]) PT-Bed Mobility Assessment Sit to Supine Sit to Supine Standby Assistance,1 Person Assistance PT-Transfer Assessment Sit to and From Stand Sit to and from Stand Standby Assistance,1 Person Assistance Equipment Transfer Assistive Device Gait Belt,Front Wheeled Walker Orthotic/Prosthetic Devices or Brace: No Transfers Transfer Destination Bed,Toilet Transfer Technique Stand Step Pivot Transfer Ability Level of Assist Standby Assistance,1 Person Assistance,Use of Upper Extremities Comments Mobility Comments Pt performing ther ex in chair then ambulating in mancia ~ 125ft w/FWW/SBA with improvement with quad activation and heel strike toe off and bending knee rather than walking with straight leg . Pt uses BR independently then required SBA to bed side. After sitting on EOB SBA pt able to get to supine SBA. Pt performing remainder and ther ex in supine. Pt present for tx. Gait Assessment Gait Gait Assistance Required: Standby Assistance,1 Person Assist Distance (Feet) 125 Able to Maintain Weight Bearing Status Yes During Gait Assistive Devices Assistive Device Gait Belt,Front Wheeled Walker Orthotic/Prosthetic Devices or Brace: No Gait Deviations General Gait Pattern Antalgic,Decreased Stride Length,Decreased Feet Clearance Factors Limiting Gait Function Factors Limiting Gait Function Decreased Activity Tolerance, Decreased Strength,Difficulty Following Directions,Limited Range of Motion,Pain,Poor Balance Comments Gait Comments see mobility section Stair Climbing Assessment Comments Stair Climbing Comments no stairs at home PT-Balance Assessment Sitting Balance and Reactions Static Sitting Balance Ability Good Dynamic Sitting Balance Ability Good Standing Balance and Reactions Static Standing Balance Ability Fair Dynamic Standing Balance Ability Fair Device Used FWW M5 PT-IP Objective Assessments Start: 11/12/20 12:38 Freq: NEEDED Status: Active Protocol: Document 11/12/20 10:15 AB (Rec: 11/12/20 12:59 AB [id number]) Orientation Orientation/Cognition Level of Alertness Alert Orientation Name,Place,Situation Language Function Ability Hard of Hearing Safety Awareness Decreased Safety Awareness Memory Description Short Term Impaired Gross Range of Motion Lower Extremity ROM Assessment Left Impaired Impairments L knee flexion:~ 20 deg Strength Lower Extremity Strength Assessment Left Impaired Hip 4-/5 Knee 3-/5 Muscle Tone Muscle Tone WNL Yes M6 PT-IP Treatment Start: 11/12/20 12:38 Freq: NEEDED Status: Active Protocol: Document 11/13/20 14:56 CLB (Rec: 11/13/20 15:46 CLB [id number]) Physical Therapy Treatment Exercises Exercises Ankle Pumps,Quad Sets,Heel Slides,Seated Knee Flexion/ Extension Education Education Provided Precautions,Weight Bearing Status,Post-Op Packet,Safety M7 PT-IP Assessment and Plan Start: 11/12/20 12:38 Freq: NEEDED Status: Active Protocol: Document 11/13/20 14:56 CLB (Rec: 11/13/20 15:46 CLB [id number]) PT Summary Assessment and Plan Potential Rehabilitation Potential Good Status of Condition at Evaluation Evolving Summary Impairments Pain,ROM,Strength,Balance, Coordination,Sensation,Tone, Cognition,Bed Mobility, Transfers,Gait,Activity Tolerance Progress Towards Goals Progressing Toward Goals Assessment Summary Pt is SBA for all mobility and is able to use BR independently. Pt increased gait distance and quality this session. Pt may d/c home with husbands assist when medically stable. Goals Bed Mobility Goal Independent Transfer Goal Independent,Front Wheeled Walker Gait Goal Independent,Front Wheel Walker Gait Distance 100 Days to Meet Goals 10 Frequency of Treatment Frequency Of Treatment Twice a Day Treatment Plan Physical Therapy Treatment Plan Bed Mobility Training,Transfer Training,Gait Training, Therapeutic Exercise,Balance Retraining,Post Op Education, Discharge Planning,Hot or Cold Pack,Neuromuscular Re-ed, Coordination Retraining,Manual Therapy Precautions Other Precautions LLE WBAT Recommendations To Nursing Amount of Assist Needed 1 Person Assist Discharge Recommendations PT Discharge Recommendations Home with Assistance Transportation Needs at Discharge Private Vehicle
[2020-11-13] MEDS: LORATADINE 10 MG TABLET PO (15:28)
[2020-11-13 15:53] VITALS: BP 139/59; PULSE 91; RESP 17; TEMP 35.9; O2SAT 97
--- NOTE | 2020-11-13 16:50 | PC.NURSE ---
Addendum entered by Sidra Mata R.N. 11/13/20 22:58: No change in neurovascular status this evening shift. Addendum entered by Sidra Mata R.N. 11/13/20 22:42: Mostly sleeping this evening shift. Wakens easily to voice. Reports has been using I.S. when questioned. Consistently rates left knee pain 3/10. IV antibiotic infused as ordered to left ac iv site. Addendum entered by Sidra Mata R.N. 11/13/20 17:53: Dressing to left lateral leg prior hemovac site is saturated and this was removed. No active bleeding @ site noted. Folded 4 x 4 gauze placed and tegaderm x 2 to secure. MELVIN dressings intact LLE and battery pack is functional. Distal MLEVIN dressing to left knee with small amount shadowy drainage unchanged since last evening. Left pedal pulse present with doppler. BL calf scd's in place. Rates pain 3/10 and prefers ibuprofen/tylenol only. Admits to full sensation to BL LE's. Original Note: Pt up in hallway ambulating with physical therapy @ beginning of shift. Spouse is present. Currently pt in bed with eyes closed resting quietly without signs of distress or discomfort.
[2020-11-13 20:36] VITALS: BP 132/64; PULSE 83; RESP 17; TEMP 36.4; O2SAT 94
[2020-11-14] MEDS: IBUPROFEN 400 MG TABLET PO ×4 (00:42→13:33)
[2020-11-14 00:45] VITALS: BP 128/53; PULSE 85; RESP 18; TEMP 36.5; O2SAT 90
[2020-11-14 05:39] VITALS: BP 127/62; PULSE 85; RESP 18; TEMP 36.9; O2SAT 92
[2020-11-14] MEDS: SODIUM CHLORIDE 0.9% FLUSH 10 ML IV ×2 (06:12→09:29)
[2020-11-14] MEDS: CEFAZOLIN 1 GM VIAL 2 GM IV (06:12)
[2020-11-14] MEDS: PANTOPRAZOLE DR 20 MG TABLET PO (06:12)
[2020-11-14] MEDS: LEVOTHYROXINE 50 MCG TABLET PO (06:49)
[2020-11-14 09:00] VITALS: BP 122/66; PULSE 80; RESP 17; TEMP 36.8; O2SAT 93
--- NOTE | 2020-11-14 09:05 | PT.IPTN ---
Current Diagnoses Aftercare following explantation of knee joint prosthesis (11/11/20) Surgery Performed Operation Date: 11/11/20 12:00 Actual Procedures p Total Knee Arthroplasty Revision w/removal of spacer(Left) - Camila Trujillo MD Physical Therapy Treatment Note M2 PT-IP Current Condition Start: 11/12/20 12:38 Freq: NEEDED Status: Active Protocol: Document 11/14/20 09:09 MA (Rec: 11/14/20 09:21 MA [id number]) Physical Therapy Current Condition Current Condition Evaluation Date 11/12/20 Treatment Diagnosis s/p L TKA revision; difficulty in walking Onset Date 11/11/20 Precautions Other Precautions LLE WBAT Weight Bearing Status Weight Bearing Status Weight Bear as Tolerated Allowed Weight Bearing Amount (enter % LLE WBAT or #) (%) M3 PT-IP Subjective Start: 11/12/20 12:38 Freq: NEEDED Status: Active Protocol: Document 11/14/20 09:09 MA (Rec: 11/14/20 09:21 MA [id number]) Subjective Physical Therapy Visit Type Type Treatment Note Visit Start Time 08:30 Visit Stop Time 09:05 Total Visit Minutes 35 Number of ORNAMENTAL METAL ERECTOR Visits 4 Physical Therapy Visit Comments Patient Comments Pt states she will probably go home this afternoon and would like to use the bathroom when she gets up Therapy Pain Assessment Pain When Pain Assessed During Mobility Pain Present Pain Present Pain Reported Location left knee Intensity 4 Scale Used Numeric (0 - 10) Pain Management Techniques Elevation,Modification of Treatment,Re-positioning M4 PT-IP Mobility and Gait Start: 11/12/20 12:38 Freq: NEEDED Status: Active Protocol: Document 11/14/20 09:09 MA (Rec: 11/14/20 09:21 MA [id number]) PT-Bed Mobility Assessment Supine to Sit Supine to Sit Standby Assistance,1 Person Assistance Sit to Supine Sit to Supine Standby Assistance,1 Person Assistance PT-Transfer Assessment Sit to and From Stand Sit to and from Stand Standby Assistance,1 Person Assistance Equipment Transfer Assistive Device Gait Belt,Front Wheeled Walker Orthotic/Prosthetic Devices or Brace: No Transfers Transfer Destination Bed,Chair,Toilet Transfer Technique Stand Step Pivot Transfer Ability Level of Assist Standby Assistance,1 Person Assistance,Use of Upper Extremities Comments Mobility Comments Pt able to perform all bed mobility SBA. Taught pt how to use gait belt to move LLE if needed. She transferred to the toilet SBA and was SBA to return to room chair at end of session. Gait Assessment Gait Gait Assistance Required: Standby Assistance,1 Person Assist Distance (Feet) 212 Able to Maintain Weight Bearing Status Yes During Gait Assistive Devices Assistive Device Gait Belt,Front Wheeled Walker Orthotic/Prosthetic Devices or Brace: No Gait Deviations General Gait Pattern Antalgic,Decreased Stride Length,Decreased Feet Clearance Factors Limiting Gait Function Factors Limiting Gait Function Decreased Strength,Limited Range of Motion,Pain,Poor Balance Comments Gait Comments Pt ambulated 212 feet around nursing stations SBA with FWW and gait belt. She needs minor cues to avoid stepping too close to walker to prevent falls but is able to WB through LLE with decreased knee flexion. Stair Climbing Assessment Comments Stair Climbing Comments no stairs at home PT-Balance Assessment Sitting Balance and Reactions Static Sitting Balance Ability Good Dynamic Sitting Balance Ability Good Standing Balance and Reactions Static Standing Balance Ability Good Dynamic Standing Balance Ability Fair Device Used FWW Comments Other Balance Tests/Deviations/Treatment Pt is able to stand at sink : and brush teeth showing improved static balance. M5 PT-IP Objective Assessments Start: 11/12/20 12:38 Freq: NEEDED Status: Active Protocol: Document 11/12/20 10:15 AB (Rec: 11/12/20 12:59 AB [id number]) Orientation Orientation/Cognition Level of Alertness Alert Orientation Name,Place,Situation Language Function Ability Hard of Hearing Safety Awareness Decreased Safety Awareness Memory Description Short Term Impaired Gross Range of Motion Lower Extremity ROM Assessment Left Impaired Impairments L knee flexion:~ 20 deg Strength Lower Extremity Strength Assessment Left Impaired Hip 4-/5 Knee 3-/5 Muscle Tone Muscle Tone WNL Yes M6 PT-IP Treatment Start: 11/12/20 12:38 Freq: NEEDED Status: Active Protocol: Document 11/14/20 09:09 MA (Rec: 11/14/20 09:21 MA [id number]) Physical Therapy Treatment Exercises Exercises Ankle Pumps,Quad Sets,Heel Slides,Seated Knee Flexion/ Extension Education Education Provided Precautions,Weight Bearing Status,Post-Op Packet,Safety Other Treatments Other Treatment Performed 2 min of static knee flexion to pt's tolerance in chair to improve ROM M7 PT-IP Assessment and Plan Start: 11/12/20 12:38 Freq: NEEDED Status: Active Protocol: Document 11/14/20 09:09 [email or web address] (Rec: 11/14/20 09:21 [id number]) PT Summary Assessment and Plan Potential Rehabilitation Potential Good Status of Condition at Evaluation Evolving Summary Impairments Pain,ROM,Strength,Balance, Coordination,Sensation,Tone, Cognition,Bed Mobility, Transfers,Gait,Activity Tolerance Progress Towards Goals Progressing Toward Goals Assessment Summary Pt is SBA for all mobility and transfers. She is able to maintain good static standing balance while performing hygeine activities at sink and was able to use the bathroom independently. Jaimie will be able to d/c home with when medically cleared. ORNAMENTAL METAL ERECTOR encouraged pt to continue working on her HEP and to focus on increasing knee flexion. Pt left in room chair with all needs in reach. She denies elevating LLE with pillow at this time. Goals Bed Mobility Goal Independent Transfer Goal Independent,Front Wheeled Walker Gait Goal Independent,Front Wheel Walker Gait Distance 100 Days to Meet Goals 10 Frequency of Treatment Frequency Of Treatment Twice a Day Treatment Plan Physical Therapy Treatment Plan Bed Mobility Training,Transfer Training,Gait Training, Therapeutic Exercise,Balance Retraining,Post Op Education, Discharge Planning,Hot or Cold Pack,Neuromuscular Re-ed, Coordination Retraining,Manual Therapy Precautions Other Precautions LLE WBAT Recommendations To Nursing Amount of Assist Needed 1 Person Assist Discharge Recommendations PT Discharge Recommendations Home with Assistance Transportation Needs at Discharge Private Vehicle
[2020-11-14] MEDS: estradioL 1 MG TABLET PO (09:28)
[2020-11-14] MEDS: ACETAMINOPHEN 325 MG TABLET 650 MG PO ×2 (09:28→14:02)
[2020-11-14] MEDS: DOCUSATE 100 MG CAPSULE PO (09:28)
[2020-11-14] MEDS: ASPIRIN EC 81 MG TABLET PO (09:28)
[2020-11-14] MEDS: FISH OIL 1,000 MG CAPSULE 1000 MG PO (09:29)
[2020-11-14] MEDS: LORATADINE 10 MG TABLET PO (09:29)
[2020-11-14] MEDS: TRIAMTERENE/HCTZ 37.5/25 CAPSULE 1 CAP PO (09:29)
--- NOTE | 2020-11-14 09:36 | PC.NURSE ---
Addendum entered by Reanna Chin R.N. 11/14/20 14:24: Patient and given discharge instructions regarding f/u appointment, s/s of infection or worsening condition, dressing and wound care, pain control and antibiotic therapy. Patient and verbalized understanding. IV removed from L AC. Patient tolerated. No further questions at this time. Patient discharged with aide assist in wheelchair with walker. Prescription given to . Original Note: Patient up to chair for breakfast. A/O x 3. VSS. MELVIN intact, drainage unchanged. Removed HV dsg CDI. Using FWW with SBA. Tolerating pain with scheduled Tylenol and Ibuprofen. Lungs CTA, 98% on RA. Patient has no further needs at this time. On the phone with . Call light in reach.
--- NOTE | 2020-11-14 12:18 | P.PN_ITS ---
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/20) HTN (hypertension) Hypothyroid Impaired fasting glucose Pneumonia (2006) Scoliosis Surgical History History of arthroplasty of both shoulders History of arthroplasty of left knee (11/13/19) History of arthroplasty of right knee History of bilateral cataract extraction History of hysterectomy History of lumbar fusion (08/29/16) History of total left hip arthroplasty Hx of BSO (bilateral salpingo-oophorectomy) Hx of dilation and curettage Hx of repair of right rotator cuff S/P foot surgery, right Social History household members: spouse Smoking Status: Never smoker alcohol intake: current Assessment & Plan Assessment & Plan narrative: Patient is admitted after surgery. PO s/p revision knee arthroplasty. Patient has been stable and progressing with physical therapy. Patient is neurovascularly intact on exam. Patient has no signs or symptoms of DVT. Patient's dressing is clean dry and intact. Will discharge today to home. Quality VTE Deep Vein Thrombosis/Pulmonary Embolism Present on Admission: No
== END 2020-11-14 14:20 | disposition home or self-care (01) | DRG 468 ==
LOC: OR 10:02 → AC 10:04
PROVIDERS: Admitting Provider Orthopaedic Surgery; PCP Internal Medicine; Referring Provider Orthopaedic Surgery; Visit Provider Orthopaedic Surgery
PROC: 0SRD0J9 Replacement of Left Knee Joint with Synthetic Substitute, Cemented, Open Approach (ICD-10-PCS; principal; 2020-11-11 12:00)
DX: Z47.33 Aftercare following explantation of knee joint prosthesis (principal); M23.8X2 Other internal derangements of left knee; I10 Essential (primary) hypertension; E03.9 Hypothyroidism, unspecified; K21.9 Gastro-esophageal reflux disease without esophagitis; Z20.822 Contact with and (suspected) exposure to COVID-19
CPT/HCPCS: 36415; 73560; 85014; 85018; 86850; 86900; 86901; 87070; 87075; 87205; 87635; 87801; 97110; 97116; 97162; 97530; C1776; C9803; A9270; C9290; J0171; J0330; J0690; J1100; J1170; J2704

== ENCOUNTER → 2021-10-27 13:02 | Outpatient (CLI) | payer MEDICARE, SELFPAY ==
[2020-11-11 19:47] VITALS: BMI 36.7
--- NOTE | 2021-10-27 | DI.MRI.S_ITS ---
PROCEDURE: MR LUMBAR SPINE WO CON INDICATIONS: Intervertebral disc degeneration, lumbar region TECHNIQUE: Noncontrast sagittal T1 spin echo and T2 fast echo, sagittal STIR, and T2 fast spin echo through the lumbar spine. In cases with scoliosis, additional coronal T2 fast spin echo may be performed. COMPARISON: [facility], MR, L-SPINE W&WO CONTRAST, 06/29/2017, 17:23. [facility], MR, L-SPINE WITHOUT CONTRAST, 02/23/2016, 13:25. FINDINGS: Image quality: Excellent. Alignment and Curvature: Extensive posterior fusion is present from L1 through S1, unchanged. Bone Marrow: Marrow is of normal overall signal. Moderate reactive endplate changes are present at T12-L1. No acute vertebral body compression fractures. Spinal Cord: Conus medullaris terminates at the L1 level. Visualized cord demonstrates normal signal and size. Paraspinous Soft Tissues: No paravertebral masses. Multiple hyperintense foci are present within the kidneys most suggestive of simple cysts. T12-L1: Mild disc bulge with phsc-af-ynndbrkg spinal stenosis, slightly progressive. There is mild right and hjmp-[id number]-[id number] left foraminal narrowing, unchanged. L1-L2: Mild disc bulge with mild spinal stenosis. Cgas-[id number] left foraminal narrowing with facet and ligamentum flavum hypertrophy. Overall appearance is stable. L2-L3: Mild disc bulge with ircz-ch-tdtjsgyb spinal stenosis, unchanged compared to prior exam. Foramina are difficult to assess secondary to artifact but there is felt to be likely mild bilateral foraminal narrowing stable compared to prior exam. L3-L4: Mild disc bulge with moderate spinal stenosis. Moderate left foraminal narrowing with facet and ligamentum flavum hypertrophy. No interval change. L4-L5: Mild disc bulge with moderate spinal stenosis. Kssq-wj-iogzndro left and moderate right foraminal narrowing. No interval change. L5-S1: Mild disc bulge with kyuj-ed-pofepomq spinal stenosis. Moderate left and moderate to severe right foraminal narrowing, relatively stable. IMPRESSION: Multilevel degenerative and postsurgical changes as above. Multilevel spinal stenosis and foraminal narrowing, stable compared to prior exam. Dictated by: Wendy Kaplan M.D. on 10/27/2021 at 14:15 Approved by: Wendy Kaplan M.D. on 10/27/2021 at 14:29
== END ==
PROVIDERS: PCP Internal Medicine; Referring Provider Orthopaedic Surgery; Visit Provider Orthopaedic Surgery
DX: M51.36 Other intervertebral disc degeneration, lumbar region (principal); M47.816 Spondylosis without myelopathy or radiculopathy, lumbar region; M47.817 Spondylosis without myelopathy or radiculopathy, lumbosacral region; M48.061 Spinal stenosis, lumbar region without neurogenic claudication; M48.07 Spinal stenosis, lumbosacral region; Z98.1 Arthrodesis status
CPT/HCPCS: 72148

== ENCOUNTER → 2022-09-01 11:10 | Outpatient (ROUT) | payer MEDICARE, SELFPAY ==
[2020-11-11 19:47] VITALS: BMI 36.7
[2022-09-01 11:26] LABS: Appearance Urine UA CLOUDY; Bilirubin Urine UA NEGATIVE (NEGATIVE); Color Urine UA YELLOW; Glucose Urine UA NEGATIVE (Negative); Ketones Urine UA NEGATIVE (NEGATIVE); Leukocyte Esterase Urine UA 3+ (NEGATIVE); Nitrite Urine UA POSITIVE (Negative); Occult Blood Urine UA 3+ (Negative); Protein Urine UA 1+ (Negative); Urobilinogen Urine UA 0.2 E.U./dL (0.2)
[2022-09-01 11:33] LABS: RBC Urine 5-10/HPF (0-5/HPF)
[2022-09-01 11:34] LABS: Bacteria Urine Many (>30); WBC Urine >100/HPF (0-5/HPF)
== END ==
PROVIDERS: PCP Internal Medicine; Visit Provider Internal Medicine
DX: M97.11XD Periprosthetic fracture around internal prosthetic right knee joint, subsequent encounter (principal); S72.114D Nondisplaced fracture of greater trochanter of right femur, subsequent encounter for closed fracture with routine healing; S42.201D Unspecified fracture of upper end of right humerus, subsequent encounter for fracture with routine healing; N39.0 Urinary tract infection, site not specified
CPT/HCPCS: 81001; 87077; 87086; 87186